=== PATIENT | male | born 1965 | race Caucasian/White ===

== ENCOUNTER 2019-04-09 13:24 | Emergency (ER) | payer OTHER ==
[2019-04-09 15:31] LABS: Amphetamine Screen,Urine Detected (NotDetected); Barbiturate Screen,Urine Not Detected (NotDetected); Benzodiazepines Screen,Urine Not Detected (NotDetected); Cocaine Screen,Urine Not Detected (NotDetected); Methadone Screen, Urine Not Detected (NotDetected); Opiate Screen,Urine Not Detected (NotDetected); Oxycodone Screen, Urine Not Detected (NotDetected); Phencyclidine Screen,Urine Not Detected (NotDetected); Tricyclic Antidepressant,Urine Not Detected (NotDetected); Urn Cannabinoid Scrn Not Detected (NotDetected)
--- NOTE | 2019-04-09 16:02 | ED ---
Psych HPI - General Chief Complaint: Psychiatric Symptoms Stated Complaint: Hallucinations, dental pain Time Seen by Provider: 04/09/19 13:52 Source: patient, RN notes reviewed, old records reviewed Mode of arrival: wheelchair - History of Present Illness Initial Comments: Patient is a 53 year old male, presents with parents for concern for hallucinations for 3 days after using methamphetamine. Patient reports he is a daily drinker, and binged over the weekend and used a large amount of meth. Denies recent sleep. PAtient denies suicidal or homircidal ideation. Patient reports that he also is here for dental infection, has poor dentition and does not go to dentist. Patient reportedly lives with parents. PAtient has no fevers or chills. - Related Data Previous Rx's Medication Instructions Recorded Penicillin V Potassium [Pen Vee K] 500 mg PO QID #40 tablet 04/09/19 Allergies Allergy/AdvReac Type Severity Reaction Status Date / Time No Known Allergies Allergy Verified 04/09/19 14:37 Review of Systems ROS Statement: Those systems with pertinent positive or pertinent negative responses have been documented in the HPI. ROS Other: All systems not noted in ROS Statement are negative. Past Medical History Past Medical History: Unable to Obtain History of Any Multi-Drug Resistant Organisms: None Reported Past Surgical History: Unable to Obtain Past Psychological History: No Psychological Hx Reported Smoking Status: Current every day smoker Past Alcohol Use History: Daily, Heavy Past Drug Use History: Marijuana, Methamphetamine General Exam - General Exam Comments Initial Comments: 53 year old male, resting in bed. No tremor, no distress. Limitations: no limitations General appearance: alert, in no apparent distress Head exam: Present: atraumatic, normocephalic, normal inspection Eye exam: Present: normal appearance, PERRL, EOMI. Absent: scleral icterus, conjunctival injection, periorbital swelling ENT exam: Present: normal exam, other (poor dentition, multiple dental caries. No abscess at this time. Inflammed gingiva. ). Absent: mucous membranes moist Neck exam: Present: normal inspection. Absent: tenderness, meningismus, lymphadenopathy Respiratory exam: Present: normal lung sounds bilaterally. Absent: respiratory distress, wheezes, rales, rhonchi, stridor Cardiovascular Exam: Present: regular rate Extremities exam: Present: normal inspection, full ROM, normal capillary refill. Absent: tenderness, pedal edema, joint swelling, calf tenderness Back exam: Present: normal inspection Neurological exam: Present: alert, oriented X3, CN II-XII intact Psychiatric exam: Present: normal mood, other (reports seeing people that are no t there after meth use this weekend. ). Absent: normal affect Skin exam: Present: warm, dry, intact, normal color. Absent: rash Course Vital Signs 04/09/19 04/09/19 04/09/19 13:25 15:00 16:54 Temperature 97.8 F 98.9 F Pulse Rate 105 H 73 81 Respiratory 18 18 20 Rate Blood Pressure 114/72 110/77 105/78 O2 Sat by Pulse 100 97 100 Oximetry Medical Decision Making - Medical Decision Making 53 year old male presents for meth induced hallucinations and wanting psych eval. Patient medically clear and evalauted by [facility] and [facility], and patient is not inpatient criteria. Symptoms are related to drug use. Patient also has poor dentition, will place on abx. Discussed return parameters. Given referrals for substance abuse. - Lab Data Lab Results 04/09/19 Range/Units 15:13 Urine Opiates Screen Not Detected (NotDetected) Ur Oxycodone Screen Not Detected (NotDetected) Urine Methadone Screen Not Detected (NotDetected) Ur Propoxyphene Screen Not Detected (NotDetected) Ur Barbiturates Screen Not Detected (NotDetected) U Tricyclic Antidepress Not Detected (NotDetected) Ur Phencyclidine Scrn Not Detected (NotDetected) Ur Amphetamines Screen Detected H (NotDetected) U Methamphetamines Scrn Detected H (NotDetected) U Benzodiazepines Scrn Not Detected (NotDetected) Urine Cocaine Screen Not Detected (NotDetected) U Marijuana (THC) Screen Not Detected (NotDetected) Disposition Clinical Impression: Dental infection, Methamphetamine abuse, Drug induced hallucinations Disposition: HOME SELF-CARE Condition: Good Instructions (If sedation given, give patient instructions): Dental Abscess (ED), Methamphetamine Abuse (ED) Additional Instructions: Please use medication as discussed. Please follow up with family doctor if symptoms have not improved over the next two days. Please return to the emergency room if your symptoms increase or worsen or for any other concerns. [facility] [id number] [place] [address] [phone] (existing clients only) For new clients: [phone] 1st consult: $50 (includes Xrays) Usually 30% less then private dentist for visits after. [employer] [facility] [employer] Have to pay $50 for Xrays anmd rest is covered. [phone] Prescriptions: Penicillin V Potassium [Pen Vee K] 500 mg PO QID #40 tablet Is patient prescribed a controlled substance at d/c from ED?: No Referrals: None,Stated [Primary Care Provider] - 1-2 days Natividad Frost MD [STAFF PHYSICIAN] - 1-2 days Time of Disposition: 16:30
[2019-04-09 17:41] VITALS: BP 105/78; PULSE 81; RESP 20; TEMP 98.9
== END 2019-04-09 16:54 | disposition home or self-care (01) ==
LOC: EC 13:24
DX: F15.151 Other stimulant abuse with stimulant-induced psychotic disorder with hallucinations (principal); K04.7 Periapical abscess without sinus; K02.9 Dental caries, unspecified; F17.200 Nicotine dependence, unspecified, uncomplicated
CPT/HCPCS: 80306; 82075; 99285

== ENCOUNTER 2020-01-09 06:57 | Emergency (ER) | payer OTHER ==
[2020-01-09 07:13] VITALS: BP 130/89; PULSE 83; TEMP 98.4
[2020-01-09] MEDS ORDERED: PROPARACAINE 0.5% OPHTH DROPS 15 ML BTL RIGHT EYE STA (07:23)
[2020-01-09] MEDS ORDERED: FLUORESCEIN STRIPS 1 MG STRIP BOTH EYES ONE (07:23)
--- NOTE | 2020-01-09 07:25 | ED ---
General Adult HPI - General Chief complaint: Eye Problems Stated complaint: FB in eye Time Seen by Provider: 01/09/20 07:18 Source: patient Mode of arrival: ambulatory Limitations: no limitations - History of Present Illness Initial comments: Dictation was produced using [employer] dictation software. please excuse any grammatical, word or spelling errors. This patient was cared for during a federal and state declared state of emergency secondary to Covid 19 Chief Complaint: 54-year-old male with foreign body sensation in the right eye History of Present Illness: 54-year-old male. Yesterday he was cutting metal, plastic and would. 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 States that after he got done working he felt a foreign body sensation in the right eye. Patient states he was wearing eye protection. Denies any vision changes. Denies any eye pain. She's had foreign body in the eyes in the past. The ROS documented in this emergency department record has been reviewed and confirmed by me. Those systems with pertinent positive or negative responses have been documented in the HPI. All other systems are other negative and/or noncontributory. PHYSICAL EXAM: General Impression: Alert and oriented x3, not in acute distress HEENT: Normocephalic atraumatic, extra-ocular movements intact, pupils equal and reactive to light bilaterally, mucous membranes moist. Ocular: Conjunctivitis to the right eye, excessive lacrimation to the right eye, small white speck foreign body embedded in the inner mucosa of the right upper eyelid just at midline. Cardiovascular: Heart regular rate and rhythm Chest: Able to complete full sentences, no retractions, no tachypnea Abdomen: abdomen soft, non-tender, non-distended, no organomegaly Musculoskeletal: Pulses present and equal in all extremities, no peripheral edema Motor: no focal deficits noted Neurological: CN II-XII grossly intact, no focal motor or sensory deficits noted Skin: Intact with no visualized rashes Psych: Normal affect and mood ED course: 54-year-old male with foreign body sensation in the right eye. Vital signs upon arrival are within acceptable limits. Patient was given proparacaine. Fluorescein testing was performed showing no corneal defects. Foreign body was removed using Q-tip and inverted eyelid. Foreign body. To be a small white plastic gurjit that patient was working with yesterday. Patient reports feeling much better. Patient given prescription for Ciprodex. He is told to use these for 2-3 days. He is given referral to on-call ophthalmology jareth. He is told to contact ophthalmology if he has any recurrence of symptoms. Discussed patient case Dr. Yuen who is aware patient - Related Data Previous Rx's Medication Instructions Recorded Penicillin V Potassium [Pen Vee K] 500 mg PO QID #40 tablet 04/09/19 Polymyxin B-Trimeth Sulf Ophth 1 drops RIGHT EYE Q4H 3 Days #1 01/09/20 [Polytrim Opthalmic] bottle Allergies Allergy/AdvReac Type Severity Reaction Status Date / Time No Known Allergies Allergy Verified 01/09/20 07:13 Review of Systems ROS Statement: Those systems with pertinent positive or pertinent negative responses have been documented in the HPI. ROS Other: All systems not noted in ROS Statement are negative. Past Medical History Past Medical History: No Reported History History of Any Multi-Drug Resistant Organisms: None Reported Past Surgical History: No Surgical Hx Reported Past Psychological History: No Psychological Hx Reported Smoking Status: Current every day smoker Past Alcohol Use History: Daily, Heavy Past Drug Use History: None Reported, Marijuana, Methamphetamine General Exam Limitations: no limitations Course Vital Signs 01/09/20 07:11 Temperature 98.4 F Pulse Rate 83 Respiratory 18 Rate Blood Pressure 130/89 O2 Sat by Pulse 95 Oximetry Disposition Clinical Impression: Eye foreign body Disposition: HOME SELF-CARE Condition: Good Instructions (If sedation given, give patient instructions): Eye Foreign Body (ED) Additional Instructions: Please contact , ophthalmology with any recurrence of symptoms. Eyedrops were sent to pharmacy for pickup. Please use for 3 days. Prescriptions: Polymyxin B-Trimeth Sulf Ophth [Polytrim Opthalmic] 1 drops RIGHT EYE Q4H 3 Days #1 bottle Is patient prescribed a controlled substance at d/c from ED?: No Referrals: Aleida Yuen MD [STAFF PHYSICIAN] - 1-2 days Time of Disposition: 07:43
[2020-01-09 07:52] VITALS: RESP 20
== END 2020-01-09 07:52 | disposition home or self-care (01) ==
LOC: EC 06:57
DX: T15.11XA Foreign body in conjunctival sac, right eye, initial encounter (principal); F17.200 Nicotine dependence, unspecified, uncomplicated; W45.8XXA Other foreign body or object entering through skin, initial encounter; Y92.69 Other specified industrial and construction area as the place of occurrence of the external cause; Y99.0 Civilian activity done for income or pay
CPT/HCPCS: 67938; 99283

== ENCOUNTER 2020-10-09 08:21 | Day surgery (SDC) | payer OTHER ==
[2020-10-08 11:34] VITALS: BMI 24.4
[~2020-10-09 08:21] MED LIST: LACTATED RINGERS 1,000 ML IV SCH
[2020-10-09 08:56] VITALS: TEMP 97.3
[2020-10-09] MEDS ORDERED: PROPOFOL 10 MG/ML 20 ML VIAL IV ONE (09:57)
--- NOTE | 2020-10-09 09:59 | P.GSHP ---
History of Present Illness H&P Date: 10/09/20 Chief Complaint: Screening colonoscopy Is a 55-year-old male presents today for screening colonoscopy. Patient denies any significant GI complaints. Past Medical History Past Medical History: GERD/Reflux, Hyperlipidemia, Osteoarthritis (OA), Thyroid Disorder History of Any Multi-Drug Resistant Organisms: None Reported Past Surgical History: No Surgical Hx Reported Additional Past Surgical History / Comment(s): Degloving injury left hand, repaired. Past Anesthesia/Blood Transfusion Reactions: No Reported Reaction Additional Past Anesthesia/Blood Transfusion Reaction / Comment(s): "I really, really don't like needles, I'm going to need something for anxiety." Past Psychological History: No Psychological Hx Reported Smoking Status: Current every day smoker Past Alcohol Use History: Daily Additional Past Alcohol Use History / Comment(s): Has been smoking since 18 yrs old. "A beer a day." Past Drug Use History: None Reported - Past Family History Mother Family Medical History: No Reported History Medications and Allergies Home Medications Medication Instructions Recorded Confirmed Type Cholecalciferol (Vitamin D3) 125 mcg PO DAILY 10/08/20 10/09/20 History [Vitamin D3 (5000 Iu)] Levothyroxine Sodium [Synthroid] 50 mcg PO DAILY 10/08/20 10/09/20 History Lovastatin [Mevacor] 40 mg PO HS 10/08/20 10/09/20 History Multivitamins, Thera [Multivitamin 1 tab PO DAILY 10/08/20 10/09/20 History (formulary)] Pantoprazole [Protonix] 40 mg PO DAILY 10/08/20 10/09/20 History Allergies Allergy/AdvReac Type Severity Reaction Status Date / Time No Known Allergies Allergy Verified 10/09/20 08:59 Surgical - Exam Vital Signs Temp Pulse Resp BP Pulse Ox 97.3 F L 67 16 131/87 97 10/09/20 08:54 10/09/20 08:54 10/09/20 08:54 10/09/20 08:54 10/09/20 08:54 - General well developed, well nourished, no distress - Eyes PERRL - ENT normal pinna - Neck no masses - Respiratory normal expansion - Cardiovascular Rhythm: regular - Abdomen Abdomen: soft, non tender Assessment and Plan Assessment: We'll perform screening colonoscopy
--- NOTE | 2020-10-09 10:16 | P.OP ---
Date of Procedure: 10/09/20 Preoperative Diagnosis: Screening colonoscopy Postoperative Diagnosis: Diverticulosis Procedure(s) Performed: Colonoscopy Anesthesia: MAC Surgeon: Marcos Kay Pathology: none sent Condition: stable Disposition: PACU Description of Procedure: The patient's placed on the endoscopy table in the lateral position. He received IV sedation. Digital rectal exam was performed which revealed no abnormalities. The flexible colonoscope was then placed patient anus passed throughout the entire colon. The ileocecal valve was visually. The cecum, ascending and transverse colon appeared normal. In the descending and sigmoid colon there was some mild diverticular changes. Scope was then brought back the rectum and this appeared normal. The scope was withdrawn for patient.
[2020-10-09 10:28] VITALS: BP 122/86; PULSE 86; RESP 16
== END 2020-10-09 10:42 | disposition home or self-care (01) ==
LOC: ORWHC2ENDO 08:21
PROVIDERS: ATTEND Surgery
DX: Z12.11 Encounter for screening for malignant neoplasm of colon (principal); K57.30 Diverticulosis of large intestine without perforation or abscess without bleeding; K21.9 Gastro-esophageal reflux disease without esophagitis; E78.5 Hyperlipidemia, unspecified; M19.90 Unspecified osteoarthritis, unspecified site; E07.9 Disorder of thyroid, unspecified; F17.210 Nicotine dependence, cigarettes, uncomplicated; Z97.2 Presence of dental prosthetic device (complete) (partial); Z98.890 Other specified postprocedural states; Z79.890 Hormone replacement therapy; Z79.899 Other long term (current) drug therapy
CPT/HCPCS: J2704; G0121; 45378

== ENCOUNTER 2021-10-04 18:55 | Emergency (ER) | payer OTHER ==
[2021-10-05 00:37] LABS: HCT 48.3 % (39.0-53.0); HGB 15.7 gm/dL (13.0-17.5); MCH 30.6 pg (25.0-35.0); MCHC 32.4 g/dL (31.0-37.0); MCV 94.3 fL (80.0-100.0); Mean Platelet Volume 6.9; Platelet Count 465 k/uL (150-450); RBC 5.12 m/uL (4.30-5.90); RDW 13.9 % (11.5-15.5); WBC 5.8 k/uL (3.8-10.6)
--- NOTE | 2021-10-05 00:43 | XR ---
EXAMINATION TYPE: XR chest 2V DATE OF EXAM: 10/05/2021 COMPARISON: NONE HISTORY: Cough TECHNIQUE: 2 views FINDINGS: Heart and mediastinum are normal. Lungs are clear. Diaphragm is normal. Bony thorax appears normal. IMPRESSION: Normal chest.
--- NOTE | 2021-10-05 00:46 | XR ---
EXAMINATION TYPE: XR KUB DATE OF EXAM: 10/05/2021 COMPARISON: NONE HISTORY: Pain TECHNIQUE: 2 view Upright FINDINGS: Bowel gas pattern is normal. There is no sign of intestinal obstruction or pneumoperitoneum . Fecal pattern is normal. There is no evidence of a mass. There are no pathologic calcifications ove r the kidneys. IMPRESSION: Nonacute abdomen.
[2021-10-05 00:50] LABS: Appearance,Urine Clear (Clear); Bilirubin,Urine Negative (Negative); Blood,Urine Negative (Negative); Color,Urine Yellow; Glucose,Urine (UA) Negative (Negative); Ketones,Urine Negative (Negative); Leukocyte Esterase,Urine Negative (Negative); Nitrite,Urine Negative (Negative); Protein,Urine Negative (Negative); Specific Gravity,Urine 1.017 (1.001-1.035); Urobilinogen,Urine <2.0 mg/dL (<2.0)
[2021-10-05 00:58] LABS: ALT 63 U/L (4-49); AST 43 U/L (17-59); African American GFR (CKD) >90 (>60 ml/min/1.73 sqM); Albumin 4.7 g/dL (3.5-5.0); Alkaline Phosphatase 100 U/L (38-126); Anion Gap 9 mmol/L; Blood Urea Nitrogen 15 mg/dL (9-20); Calcium 9.2 mg/dL (8.4-10.2); Carbon Dioxide 25 mmol/L (22-30); Chloride 104 mmol/L (98-107); Glucose 108 mg/dL (74-99); Lipase 88 U/L (23-300); Non-African American GFR(CKD) >90 (>60 ml/min/1.73 sqM); Potassium 4.8 mmol/L (3.5-5.1); Sodium 138 mmol/L (137-145); Total Bilirubin 0.4 mg/dL (0.2-1.3); Total Protein 8.2 g/dL (6.3-8.2)
--- NOTE | 2021-10-05 01:10 | ED ---
General Adult HPI - General Chief complaint: Abdominal Pain Stated complaint: Trouble urinating Time Seen by Provider: 10/04/21 23:25 Source: patient, RN notes reviewed Mode of arrival: ambulatory Limitations: no limitations - History of Present Illness Initial comments: 56-year-old male presents to the emergency department for evaluation of multiple complaints. Patient describes hesitancy with urination and a weak stream. States this has been an ongoing issue for nearly one year. Also complains of a swollen abdomen for the past 6 months. In addition, patient complains of a gagging cough that occurs when he smokes cigarettes. States he has been taking his medications as prescribed by his PCP. Denies fever, chills, headache, dizziness, chest pain, difficulty breathing, nausea, vomiting, diarrhea, constipation, dysuria, or hematuria. - Related Data Home Medications Medication Instructions Recorded Confirmed Cholecalciferol (Vitamin D3) 125 mcg PO DAILY 10/08/20 10/09/20 [Vitamin D3 (5000 Iu)] Levothyroxine Sodium [Synthroid] 50 mcg PO DAILY 10/08/20 10/09/20 Lovastatin [Mevacor] 40 mg PO HS 10/08/20 10/09/20 Multivitamins, Thera [Multivitamin 1 tab PO DAILY 10/08/20 10/09/20 (formulary)] Pantoprazole [Protonix] 40 mg PO DAILY 10/08/20 10/09/20 Allergies Allergy/AdvReac Type Severity Reaction Status Date / Time No Known Allergies Allergy Verified 10/04/21 19:05 Review of Systems ROS Statement: Those systems with pertinent positive or pertinent negative responses have been documented in the HPI. ROS Other: All systems not noted in ROS Statement are negative. Past Medical History Past Medical History: GERD/Reflux, Hyperlipidemia, Osteoarthritis (OA), Thyroid Disorder History of Any Multi-Drug Resistant Organisms: None Reported Past Surgical History: No Surgical Hx Reported Additional Past Surgical History / Comment(s): Degloving injury left hand, repaired. Past Anesthesia/Blood Transfusion Reactions: No Reported Reaction Additional Past Anesthesia/Blood Transfusion Reaction / Comment(s): "I really, really don't like needles, I'm going to need something for anxiety." Past Psychological History: No Psychological Hx Reported Smoking Status: Current every day smoker Past Alcohol Use History: Daily Past Drug Use History: None Reported - Past Family History Mother Family Medical History: No Reported History General Exam Limitations: no limitations (Well-developed, well-nourished male in no acute distress. Temperature 98.0, pulse 110, respirations 18, blood pressure 143/78, pulse ox 99% on room air.) General appearance: alert, in no apparent distress Neck exam: Present: normal inspection, full ROM. Absent: tenderness, meningismus, lymphadenopathy Respiratory exam: Present: normal lung sounds bilaterally. Absent: respiratory distress, wheezes, rales, rhonchi, stridor, chest wall tenderness, accessory muscle use Cardiovascular Exam: Present: regular rate, normal rhythm, normal heart sounds. Absent: systolic murmur, diastolic murmur, rubs, gallop, clicks GI/Abdominal exam: Present: soft, tenderness (mild lower abdomin/suprapubic tenderness upon palpation), guarding (guarding lower abdomen), normal bowel sounds. Absent: distended, rebound, rigid Back exam: Absent: CVA tenderness (R), CVA tenderness (L) Neurological exam: Present: alert, oriented X3, CN II-XII intact Psychiatric exam: Present: normal affect, normal mood Skin exam: Present: warm, dry, intact, normal color. Absent: rash Course Vital Signs 10/04/21 10/05/21 19:02 02:49 Temperature 98 F Pulse Rate 110 H 100 Respiratory 18 18 Rate Blood Pressure 143/78 119/80 O2 Sat by Pulse 99 97 Oximetry - Reevaluation(s) Reevaluation #1: 10/05/21 01:15 Upon reevaluation, patient reports a full sensation in his abdomen. States he is drinking water, but not putting out much urine. Bladder scan shows post-void residual of 344ml. Discussed dumas catheter; patient is anxious about this but is willing. 10/05/21 03:00 Patient is awaiting dumas catheter placement. Discussed follow up care. Will reevaluate after catheter is placed. Continues to tolerate oral intake without difficulty but reports dribbling urine output. 10/05/21 04:00 Dumas catheter placed with clear, yellow urine output. Volume output 250ml. Patient reports feeling improved. He will be discharged home to follow up with PCP for further evaluation and treatment. Medical Decision Making - Medical Decision Making 56-year-old male with a past medical history of GERD, osteoarthritis, thyroid disorder, and hyperlipidemia presents to the emergency department for evaluation of multiple vague complaints. Upon exam, patient is well-appearing and in no acute distress. Vital signs stable. Patient is able to move about freely. Reading oral intake without difficulty. He states his abdomen appears swollen and is mildly tender upon palpation in the suprapubic region. Patient states he a weak urine stream and has difficulty emptying his bladder. Also complained of gagging cough that occurs with smoking. Chest and KUB xrays were unremarkable. Laboratory studies were reviewed with no significant findings. Urinalysis is negative. Dumas catheter was placed with clear yellow urine output. Patient reports improvement and abdominal discomfort after catheter placement. He will be discharged home with a leg bag in place and instructed to follow up with his PCP or urology by the end of the week. Return parameters were discussed in detail. Patient verbalizes understanding and agrees with this plan. Attending: Yomaira. - Lab Data Result diagrams: 10/05/21 00:30 10/05/21 00:30 Lab Results 10/05/21 10/05/21 10/05/21 Range/Units 00:30 00:30 00:30 WBC 5.8 (3.8-10.6) k/uL RBC 5.12 (4.30-5.90) m/uL Hgb 15.7 (13.0-17.5) gm/dL Hct 48.3 (39.0-53.0) % MCV 94.3 (80.0-100.0) fL MCH 30.6 (25.0-35.0) pg MCHC 32.4 (31.0-37.0) g/dL RDW 13.9 (11.5-15.5) % Plt Count 465 H (150-450) k/uL MPV 6.9 Neutrophils % Not Reportable Neutrophils % (Manual) 38 % Lymphocytes % Not Reportable Lymphocytes % (Manual) 53 % Monocytes % Not Reportable Monocytes % (Manual) 8 % Eosinophils % Not Reportable Eosinophils % (Manual) 1 % Basophils % Not Reportable Neutrophils # Not Reportable Neutrophils # (Manual) 2.20 (1.3-7.7) k/uL Lymphocytes # Not Reportable Lymphocytes # (Manual) 3.07 (1.0-4.8) k/uL Monocytes # Not Reportable Monocytes # (Manual) 0.46 (0-1.0) k/uL Eosinophils # Not Reportable Eosinophils # (Manual) 0.06 (0-0.7) k/uL Basophils # Not Reportable Nucleated RBCs 0 (0-0) /100 WBC Manual Slide Review Performed Sodium 138 (137-145) mmol/L Potassium 4.8 (3.5-5.1) mmol/L Chloride 104 (98-107) mmol/L Carbon Dioxide 25 (22-30) mmol/L Anion Gap 9 mmol/L BUN 15 (9-20) mg/dL Creatinine 0.86 (0.66-1.25) mg/dL Est GFR (CKD-EPI)AfAm >90 (>60 ml/min/1.73 sqM) Est GFR (CKD-EPI)NonAf >90 (>60 ml/min/1.73 sqM) Glucose 108 H (74-99) mg/dL Calcium 9.2 (8.4-10.2) mg/dL Total Bilirubin 0.4 (0.2-1.3) mg/dL AST 43 (17-59) U/L ALT 63 H (4-49) U/L Alkaline Phosphatase 100 (38-126) U/L Total Protein 8.2 (6.3-8.2) g/dL Albumin 4.7 (3.5-5.0) g/dL Lipase 88 (23-300) U/L Urine Color Yellow Urine Appearance Clear (Clear) Urine pH 6.0 (5.0-8.0) Ur Specific [place] 1.017 (1.001-1.035) Urine Protein Negative (Negative) Urine Glucose (UA) Negative (Negative) Urine Ketones Negative (Negative) Urine Blood Negative (Negative) Urine Nitrite Negative (Negative) Urine Bilirubin Negative (Negative) Urine Urobilinogen <2.0 (<2.0) mg/dL Ur Leukocyte Esterase Negative (Negative) - Radiology Data Radiology results: report reviewed, image reviewed Two-view chest x-ray was obtained. Report was reviewed in its entirety. Impression per Dr. Drake is normal chest. KUB x-ray was obtained. Report was reviewed in its entirety. Impression per Dr. Drake is nonacute abdomen. Disposition Clinical Impression: Urinary retention Disposition: HOME SELF-CARE Condition: Stable Instructions (If sedation given, give patient instructions): Urinary Retention in Men (ED) Additional Instructions: Keep catheter clean. Use mild soap and water to gently cleanse catheter. Avoid vigorous activity or any activity that may pull or tug on catheter. You must not attempt to remove the catheter yourself; it can cause significant trauma. Follow up with your PCP or urology by the end of the week. Return to the emergency department with any new, worsening, or concerning symptoms. Is patient prescribed a controlled substance at d/c from ED?: No Referrals: Jay Jay Clark MD [Primary Care Provider] - 1-2 days Mark Miller MD [STAFF PHYSICIAN] - 1-2 days Time of Disposition: 04:29
[2021-10-05 01:33] LABS: Eosinophils # (M) 0.06 k/uL (0-0.7); Lymphocytes # (M) 3.07 k/uL (1.0-4.8); Monocytes # (M) 0.46 k/uL (0-1.0); Neutrophils % (M) 38 %; Nucleated Red Blood Cells 0 /100 WBC (0-0); Total Cells Counted 100
[2021-10-05] MEDS ORDERED: LIDOCAINE URO-JET JELLY 2% 5 ML KIT URETHRAL ONE (01:34)
[2021-10-05] MEDS ORDERED: ONDANSETRON 4 MG/2 ML VIAL IVP STA (01:34)
[2021-10-05 04:51] VITALS: BP 149/89; PULSE 88; RESP 20; TEMP 98.7
== END 2021-10-05 04:50 | disposition home or self-care (01) ==
LOC: EC 18:55
DX: R33.9 Retention of urine, unspecified (principal); K21.9 Gastro-esophageal reflux disease without esophagitis; E78.5 Hyperlipidemia, unspecified; M19.90 Unspecified osteoarthritis, unspecified site; E07.9 Disorder of thyroid, unspecified; F17.200 Nicotine dependence, unspecified, uncomplicated
CPT/HCPCS: 99284; 96374; 51702; 51798; 36415; 80053; 83690; 85025; 81003; 71046; 74018; J2405

== ENCOUNTER 2022-03-22 20:04 | Inpatient (IN) | payer MEDICAID, OTHER ==
[2022-03-22] MEDS ORDERED: LORazepam 2 MG/ML INJ IM PRN (22:59)
[2022-03-22] MEDS ORDERED: ZIPRASIDONE 20 MG VIAL IM PRN (22:59)
--- NOTE | 2022-03-23 00:02 | ED ---
Psych HPI - General Chief Complaint: Psychiatric Symptoms Stated Complaint: Petition Time Seen by Provider: 03/22/22 20:11 Source: patient, police Mode of arrival: ambulatory - History of Present Illness Initial Comments: This patient is a 56-year-old man brought by [employer] Trainer department personnel to have psychiatric evaluation. The patient reportedly has had multiple contacts with their department over the past few days. The patient reportedly complaining that drowns are conducting surveillance over him. He states that they are also using some sort of radiation was up to cause burning to his skin. The patient then reportedly had made threats against a neighbor. After the threat Crew Trainer department brought him here to have evaluation. MD Complaint: other -: days(s) Associated Psychiatric Symptoms: delusions Quality: getting worse Improves With: none Worsens With: none - Related Data Home Medications Medication Instructions Recorded Confirmed Levothyroxine Sodium [Synthroid] 50 mcg PO DAILY 10/08/20 03/22/22 Pantoprazole [Protonix] 40 mg PO DAILY 10/08/20 03/22/22 Albuterol Sulfate [Proair Hfa] 2 puff INHALATION RT-Q6H PRN 03/22/22 03/22/22 Ergocalciferol [Vitamin D2 (1250 1,250 mcg PO QMONTHLY 03/22/22 03/22/22 Mcg = [id number] Iu)] Sildenafil Citrate [Viagra] 100 mg PO DAILY PRN 03/22/22 03/22/22 Tamsulosin HCl [Flomax] 0.4 mg PO DAILY 03/22/22 03/22/22 Allergies Allergy/AdvReac Type Severity Reaction Status Date / Time No Known Allergies Allergy Verified 03/22/22 20:42 Review of Systems ROS Statement: Those systems with pertinent positive or pertinent negative responses have been documented in the HPI. ROS Other: All systems not noted in ROS Statement are negative. Constitutional: Denies: fever Respiratory: Denies: cough, dyspnea Cardiovascular: Denies: chest pain, palpitations Gastrointestinal: Denies: abdominal pain, vomiting, diarrhea Genitourinary: Denies: dysuria, hematuria Musculoskeletal: Denies: back pain Skin: Denies: rash Neurological: Denies: headache, weakness, numbness Psychiatric: Reports: homicidal thoughts, other (Delusions). Denies: depression, suicidal thoughts Past Medical History Past Medical History: GERD/Reflux, Hyperlipidemia, Hypertension, Osteoarthritis (OA), Thyroid Disorder History of Any Multi-Drug Resistant Organisms: None Reported Past Surgical History: No Surgical Hx Reported Additional Past Surgical History / Comment(s): Degloving injury left hand, repaired. Past Anesthesia/Blood Transfusion Reactions: No Reported Reaction Additional Past Anesthesia/Blood Transfusion Reaction / Comment(s): "I really, really don't like needles, I'm going to need something for anxiety." Past Psychological History: No Psychological Hx Reported Smoking Status: Current every day smoker Past Alcohol Use History: Daily Past Drug Use History: None Reported - Past Family History Mother Family Medical History: No Reported History General Exam General appearance: alert, in no apparent distress Head exam: Present: atraumatic, normocephalic Eye exam: Present: normal appearance. Absent: scleral icterus, conjunctival injection ENT exam: Present: normal oropharynx Neck exam: Present: normal inspection Respiratory exam: Present: normal lung sounds bilaterally. Absent: respiratory distress, wheezes, rales, rhonchi, stridor Cardiovascular Exam: Present: regular rate, normal rhythm, normal heart sounds. Absent: systolic murmur, diastolic murmur, rubs, gallop GI/Abdominal exam: Present: soft. Absent: tenderness, guarding, rebound Extremities exam: Present: normal inspection. Absent: pedal edema Neurological exam: Present: alert Psychiatric exam: Present: manic. Absent: agitated, flat affect, homicidal ideation, suicidal ideation Skin exam: Present: warm, dry, intact, normal color. Absent: rash Course Vital Signs 03/22/22 20:06 Temperature 98.3 F Pulse Rate 87 Respiratory 16 Rate Blood Pressure 115/81 O2 Sat by Pulse 99 Oximetry Medical Decision Making - Lab Data Lab Results 03/22/22 Range/Units 23:16 Coronavirus (PCR) Not Detected (Not Detectd) Disposition Clinical Impression: Acute psychosis Disposition: ADMITTED IP TO THIS HOSP Condition: Fair Is patient prescribed a controlled substance at d/c from ED?: No Referrals: Jay Jay Clark MD [Primary Care Provider] - 1-2 days
[2022-03-23] MEDS ORDERED: HALOPERIDOL LACTATE 5 MG/ML 1 ML VIAL IM PRN (00:13)
[2022-03-23] MEDS ORDERED: MAGNESIUM HYDROXIDE 2,400 MG/10 ML CUP PO PRN (00:13)
[2022-03-23] MEDS ORDERED: MAG HYDROX/AL HYDROX/SIMETH 30 ML CUP PO PRN (00:13)
[2022-03-23] MEDS ORDERED: LORazepam 2 MG/ML INJ IM PRN (00:15)
[2022-03-23] MEDS: LORazepam 1 MG TAB PO PRN (02:08)
--- NOTE | 2022-03-23 09:23 | P.HP ---
Psychiatric H&P - . H&P Date: 03/23/22 History & Physical: Allergies Allergy/AdvReac Type Severity Reaction Status Date / Time No Known Allergies Allergy Verified 03/23/22 02:58 Vital Signs Temp 97.9 F 03/23/22 01:56 Pulse 80 03/23/22 01:56 Resp 15 03/23/22 01:56 BP 105/69 03/23/22 01:56 Pulse Ox 97 03/23/22 01:56 FiO2 Intake & Output 03/22/22 03/23/22 03/23/22 18:59 06:59 18:59 Weight 69.1 kg Laboratory Last Values Coronavirus (PCR) Not Detected (Not Detectd) 03/22/22 23:16 03/23/22 09:00 History of present illness: Anam Tang is a 56 years old single white male admitted for the first time for a psychiatric evaluation since he was reporting to the draw furnace tender's department several times that he was seeing drones. He said he has been seeing those drones for the last 3-4 days. He said he sees the drones at night when he is awake and they are monitoring him. He is rather vague about the details of these drones. He said he had pissed off someone and took them off their porn channel and they are mad at him. But he said he does not know them and has never seen them. He denies any other issues. He said he sleeps well it's well and gets along well. He said he gets angry at times but this has not caused any problem for him including fights being arrested etc. He denies auditory hallucinations and other kind of delusional thinking. Previous psychiatric history/drug and alcohol abuse: He said he was never in a psychiatric hospital and is not taking any psychiatric medicine. However later on he said he has been taking Seroquel 100 mg at night to help him sleep well at night. He insists that he does not abuse any drugs or alcohol except to drink 1 or 2 beers a day at times. However later on he said he was doing all kinds 100 drugs in the past and was kicked out of school in 11th grade for doing drugs he had done cocaine mescaline pot and was a heavy drinker. His UDS and other lab works are pending. Previous medical history: He has hypothyroidism COPD GERD and BPH. He is not ALLERGIC to any medication. He said he had an accident at the age of 21 and apparently the dorsum of left hand was injured and appears quite reddish now with some mild deformity. Social history: He was raised well by his parents. As noted above he was kicked out of school in 11th grade for abusing several drugs. He did not get his GED. 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 He is single and was never . He does not have any children. He was not in the service. He said he does not have any roman catholic but believes in God. He was not in the service. He has health insurance. Family history: He denies any physical or psychiatric issues in the family. Mental status examination: This is a white ambulatory male with adequate hygiene. He is not very cooperative in providing good history. He insisted that he does not abuse any drugs in spite of reporting recent onset of visual hallucinations and some delusional thinking to the draw furnace tender's department and even mentioning it to me here. However he did say he is taking Seroquel to help him sleep from the street which is often done by people who abuse stimulants. His speech is spontaneous and goal-directed even though he is not providing good information. His mood from mildly irritable to cheerful at the end of the examination. Affect is appropriate to the thought content. He reports of visual hallucinations and paranoid thinking as described above. He denies suicidal and homicidal thoughts. He is well oriented (but initially he said today is 04/01/2022) with adequate memory and general fund of knowledge. 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 Hypothyroidism, COPD, GERD, BPH. Strengths: He is working, has insurance, place to live and supportive family. Weakness: Not providing good history, probable substance abuse either of stimulant or hallucinogenic type. Treatment plan: He will have physical examination. He will be continued on Seroquel 100 mg at bedtime for psychosis adjusted dose as necessary. He will also receive milieu therapy group therapy individual therapy and recreational therapy and occupational therapy. family preservation worker will gather more information. Discharge with outpatient treatment.
[2022-03-23] MEDS: NICOTINE 14MG/24HR PATCH TRANSDERM SCH (09:42)
[2022-03-23] MEDS ORDERED: ALBUTEROL INHALER 60 PUFF/8 GM INHALER (MHU) INHALATION PRN (12:24)
--- NOTE | 2022-03-23 14:17 | P.CONS ---
History of Present Illness - Reason for Consult Consult date: 03/23/22 - History of Present Illness This is a 56 year old male patient of Dr Clark who presents to the hospital for psychiatric evaluation brought in by the hat marker department. Patient has been reporting to the police that clowns are conducting surveilance over him, also that they are using radiation that causes him to burn his skin. The patient also reportedly made threats against a neighbor. He is brought in for evaluation of delusional thought processes. During examination patient is hostile. He reports seeing drones outside his window. Past medical history of GERD, hypertension, hyperlipidemia, arthritis, hypothyroidism, he is a daily smoker and also reports daily alcohol use. Patient states he would like a cigarette, he would like a beer. He also would like a joint. He is asking who has the keys to get out of the psych unit and states he will be getting discharged today. Denies chest pain, no shortness of breath. Tolerating diet. He does report chronic pain to his knee, shoulder, and hand. He is afebrile, heart rate 80s sinus rhythm, blood pressure 115/81, 99% room air. REVIEW OF SYSTEMS: CONSTITUTIONAL: No fever, no malaise, no fatigue. HEENT: No recent visual problems or hearing problems. Denied any sore throat. CARDIOVASCULAR: No chest pain, orthopnea, PND, no palpitations, no syncope. PULMONARY: No shortness of breath, no cough, no hemoptysis. GASTROINTESTINAL: No diarrhea, no nausea, no vomiting, no abdominal pain. NEUROLOGICAL: No headaches, no weakness, no numbness. HEMATOLOGICAL: Denies any bleeding or petechiae. GENITOURINARY: Denies any burning micturition, frequency, or urgency. MUSCULOSKELETAL/RHEUMATOLOGICAL: Denies any joint pain, swelling, or any muscle pain. ENDOCRINE: Denies any polyuria or polydipsia. The rest of the 14-point review of systems is negative. PHYSICAL EXAMINATION: GENERAL: The patient is alert and oriented x3, not in any acute distress. Well developed, well nourished. HEENT: Pupils are round and equally reacting to light. EOMI. No scleral icterus. No conjunctival pallor. Normocephalic, atraumatic. No pharyngeal erythema. No thyromegaly. CARDIOVASCULAR: S1 and S2 present. No murmurs, rubs, or gallops. PULMONARY: Chest is clear to auscultation, no wheezing or crackles. ABDOMEN: Soft, nontender, nondistended, normoactive bowel sounds. No palpable organomegaly. MUSCULOSKELETAL: No joint swelling or deformity. EXTREMITIES: No cyanosis, clubbing, or pedal edema. He does have deformity to his right hand. NEUROLOGICAL: Gross neurological examination did not reveal any focal deficits. SKIN: No rashes. Assessment plan Assessment Altered mental status/delusions pending psychiatric evaluation History of hypertension currently normotensive History of GERD hyperlipidemia Hypothyroidism Daily nicotine use Daily alcohol use GI Prophylaxis DVT Prophyalxis Early ambulation Full Code Plan Resume appropriate home medications Patient refusing nicotine patch at this time Check basic labs/TSH Check urine drug toxicology Thank you for this consultation The impression and plan of care has been dictated by Lucila Castillo Nurse Practitioner as directed. Dr. Natalie MD I have performed a history and physical examination and medical decision making of this patient, discussed the same with the dictator, and agree with the dictators assessment and plan as written, documented as a scribe. Based on total visit time, I have performed more than 50% of this visit. Past Medical History Past Medical History: GERD/Reflux, Hyperlipidemia, Hypertension, Osteoarthritis (OA), Thyroid Disorder History of Any Multi-Drug Resistant Organisms: None Reported Past Surgical History: No Surgical Hx Reported Additional Past Surgical History / Comment(s): Degloving injury left hand, repaired. Past Anesthesia/Blood Transfusion Reactions: No Reported Reaction Additional Past Anesthesia/Blood Transfusion Reaction / Comm: "I really, really don't like needles, I'm going to need something for anxiety." Past Psychological History: No Psychological Hx Reported Smoking Status: Current every day smoker Past Alcohol Use History: Daily Additional Past Alcohol Use History / Comment(s): Has been smoking since 18 yrs old. "A beer a day." Past Drug Use History: None Reported - Past Family History Mother Family Medical History: No Reported History Medications and Allergies Home Medications Medication Instructions Recorded Confirmed Type Levothyroxine Sodium [Synthroid] 50 mcg PO DAILY 10/08/20 03/23/22 History Pantoprazole [Protonix] 40 mg PO DAILY 10/08/20 03/23/22 History Albuterol Sulfate [Proair Hfa] 2 puff INHALATION RT-Q6H PRN 03/22/22 03/23/22 History Ergocalciferol [Vitamin D2 (1250 1,250 mcg PO QMONTHLY 03/22/22 03/23/22 History Mcg = 13927 Iu)] Sildenafil Citrate [Viagra] 100 mg PO DAILY PRN 03/22/22 03/23/22 History Tamsulosin HCl [Flomax] 0.4 mg PO DAILY 03/22/22 03/23/22 History Allergies Allergy/AdvReac Type Severity Reaction Status Date / Time No Known Allergies Allergy Verified 03/23/22 02:58 Physical Exam Vitals: Vital Signs Temp Pulse Pulse Resp BP BP Pulse Ox 03/23/22 01:56 97.9 F 80 15 105/69 97 03/22/22 20:06 98.3 F 87 16 115/81 99 Intake and Output 03/22/22 03/23/22 03/23/22 22:59 06:59 14:59 Other: Weight 81.647 kg 69.1 kg Assessment and Plan Time with Patient: Less than 30
[2022-03-23] MEDS ORDERED: QUEtiapine 100 MG TAB PO SCH (21:00)
[2022-03-23] MEDS ORDERED: QUEtiapine 400 MG TAB PO SCH (21:00)
[2022-03-23] MEDS: QUEtiapine 100 MG TAB PO SCH (22:34)
[2022-03-24] MEDS: LEVOTHYROXINE 50 MCG TAB PO SCH (07:07)
[2022-03-24] MEDS: TAMSULOSIN 0.4 MG CAP.ER.24H PO SCH (09:57)
[2022-03-24] MEDS: PANTOPRAZOLE 40 MG TABLET PO SCH (09:57)
[2022-03-24] MEDS: NICOTINE 14MG/24HR PATCH TRANSDERM SCH (09:57)
--- NOTE | 2022-03-24 11:33 | P.PN ---
Progress Note - Text Progress Note Date: 03/24/22 S&O: Patient was seen in rounds in his room. He was laying down with his whole body covered with a sheet. He said he slept the whole night and was not bothered by the drones. But he was quite agitated and hostile requiring when necessary medications last evening. Continues to say that he wants to go home. He was advised that he came here under a petition and needs to wait until he is seen by the employment law attorney so that he can deafer his commitment before we can discharge him. He agreed to do that. Again he was asking when he can go. This time it was explained to him that he would like him to be safe and sound when he goes home without being bothered by the drones and his persecutors. He seemed to agree with that. This is a right ambulatory male with adequate hygiene. He does not show any psychomotor agitation or retardation. His speech is spontaneous and goal- directed. His mood is euthymic to irritable and affect is increased in intensity. Continues to believe he is followed by the drones and his persecutors are after him. Denies suicidal and homicidal ideas. Sensorium is clear. A&P: His second court CERT was completed this morning. He'll continue Seroquel, supervision and therapies. Estimated length of stay 5-7 days.
[2022-03-24] MEDS: QUEtiapine 100 MG TAB PO SCH (19:47)
[2022-03-24] MEDS: ACETAMINOPHEN TAB 325 MG TAB PO PRN (19:47)
--- NOTE | 2022-03-25 03:42 | CONS ---
CONSULTATION CHIEF COMPLAINT: Depression and acute psychosis. HISTORY OF PRESENT ILLNESS: This gentleman has been a patient in the practice and was last seen in December. He was just establishing with us at that time. He has a history of COPD, hypertension, hypothyroidism, and hyperlipidemia. He apparently came to the emergency room with depression. At the present time, he is difficult to arouse and no further history can be obtained. When he was seen in December, he was on Flomax, vitamin D, lovastatin, pantoprazole, and thyroid. He also has a history of GERD and rheumatoid arthritis. 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 He has had surgery on the hip and on the hand in the past. He does smoke. PHYSICAL EXAMINATION: VITAL SIGNS: Blood pressure is 138/90 with a pulse of 82, respirations of 19. He is afebrile. GENERAL: He appeared to be lethargic and sleepy. HEAD, EARS, EYES, NOSE, MOUTH: Seemed to be normal. CHEST: Clear. CARDIAC: Sounds like sinus rhythm. ABDOMEN: Soft and nontender. EXTREMITIES: Normal. IMPRESSION: 1. Major depression with acute psychosis. 2. History of gastroesophageal reflux disease. 3. History of hypothyroidism. 4. History of hyperlipidemia. RECOMMENDATIONS: None. MMODL / IJN: [id number] /
[2022-03-25] MEDS: LEVOTHYROXINE 50 MCG TAB PO SCH (05:47)
[2022-03-25] MEDS: NICOTINE 14MG/24HR PATCH TRANSDERM SCH (09:08)
[2022-03-25] MEDS: PANTOPRAZOLE 40 MG TABLET PO SCH (09:09)
[2022-03-25] MEDS: TAMSULOSIN 0.4 MG CAP.ER.24H PO SCH (09:09)
[2022-03-25] MEDS: haloperidoL 5 MG TAB PO PRN ×2 (10:27→18:02)
[2022-03-25] MEDS: LORazepam 1 MG TAB PO PRN ×2 (10:27→18:02)
--- NOTE | 2022-03-25 10:32 | P.PN ---
Progress Note - Text Progress Note Date: 03/25/22 S&O: Patient was seen in his room. Today he got out of bed and then sat on it while talking. He said he wants to go home today several times. He was again counseled that he is under commitment and has to have a court hearing or has to sign a waiver before discharge can be consider. He continues to be quite angry and irritable. Counseling has not been effective. He said he did not see any drones last night either and had slept good. He does not attend groups or socialize with other people. This is a right ambulatory male who is irritable and gets angry easily. He is hyperactive and demanding. Speech is spontaneous and goal-directed and is preoccupied with his going home. Mood is angry and affect is increased in intensity. He denied seeing the drones and did not say that anybody is after him. He denies suicide and homicide thoughts. He is well oriented with adequate memory. A&P: Increase Seroquel to 200 mg at bedtime continue supervision and groups.
[2022-03-25] MEDS: QUEtiapine 200 MG TAB PO SCH (20:37)
[2022-03-26] MEDS: LEVOTHYROXINE 50 MCG TAB PO SCH (06:23)
[2022-03-26] MEDS: TAMSULOSIN 0.4 MG CAP.ER.24H PO SCH (11:53)
[2022-03-26] MEDS: NICOTINE 14MG/24HR PATCH TRANSDERM SCH (11:53)
[2022-03-26] MEDS: PANTOPRAZOLE 40 MG TABLET PO SCH (11:53)
[2022-03-26] MEDS: ACETAMINOPHEN TAB 325 MG TAB PO PRN ×2 (16:38→21:06)
--- NOTE | 2022-03-26 17:42 | P.PN ---
Progress Note - Text Progress Note Date: 03/26/22 Interval History: Patient was seen bedside. He was somnolent upon approach. He reports he is doing "okay ". He denies concerns with medication. He reports sleeping and eating well. Patient continues to be somewhat disorganized in thought process. He did not participate in any groups this morning. Mental Status Exam: General Appearance: Laying in bed, disheveled Behavior: Somnolent Speech: Decreased amount Mood/Affect: Mood is "okay"; affect mood congruent Suicidality/Homicidality: Patient denies having any suicidal or homicidal ideation intent or plan. Perceptions: Patient is denying any auditory or visual hallucinations today. Though content/process: Disorganized Memory and concentration: Poor concentration. Judgment and insight: Poor Assessment Substance-induced psychotic disorder Plan: - Involuntary status -Continue current meds as tolerated -Haldol and Ativan PRN for anxiety/agitation/aggression -Motivational interviewing -Patient was informed of the risks, benefits and side effects of the medication and patient verbally consented to taking the medications. -Internal Medicine consult to perform medical evaluation and physical. -NRT - nicotine patch -SW on board for discharge planning. Encourage patient to participate in groups to work on coping skills.
[2022-03-26] MEDS: haloperidoL 5 MG TAB PO PRN (19:16)
[2022-03-26] MEDS: LORazepam 1 MG TAB PO PRN (19:17)
[2022-03-26] MEDS: QUEtiapine 200 MG TAB PO SCH (21:06)
[2022-03-27] MEDS: LEVOTHYROXINE 50 MCG TAB PO SCH (06:41)
[2022-03-27] MEDS: NICOTINE 14MG/24HR PATCH TRANSDERM SCH (09:39)
[2022-03-27] MEDS: PANTOPRAZOLE 40 MG TABLET PO SCH (12:26)
[2022-03-27] MEDS: TAMSULOSIN 0.4 MG CAP.ER.24H PO SCH (12:26)
[2022-03-27 15:43] LABS: Appearance,Urine Clear (Clear); Bilirubin,Urine Negative (Negative); Blood,Urine Negative (Negative); Color,Urine Light Yellow; Glucose,Urine (UA) Negative (Negative); Ketones,Urine Negative (Negative); Leukocyte Esterase,Urine Negative (Negative); Nitrite,Urine Negative (Negative); Protein,Urine Negative (Negative); Specific Gravity,Urine 1.018 (1.001-1.035); Urobilinogen,Urine <2.0 mg/dL (<2.0)
[2022-03-27 16:09] LABS: Amphetamine Screen,Urine Detected (NotDetected); Barbiturate Screen,Urine Not Detected (NotDetected); Benzodiazepines Screen,Urine Detected (NotDetected); Cocaine Screen,Urine Not Detected (NotDetected); Methadone Screen, Urine Not Detected (NotDetected); Opiate Screen,Urine Not Detected (NotDetected); Oxycodone Screen, Urine Not Detected (NotDetected); Phencyclidine Screen,Urine Not Detected (NotDetected); Tricyclic Antidepressant,Urine Detected (NotDetected); Urn Cannabinoid Scrn Not Detected (NotDetected)
--- NOTE | 2022-03-27 17:51 | P.PN ---
Progress Note - Text Progress Note Date: 03/27/22 Interval History: Patient was seen bedside. He was awake but laying in bed. He reports he is d oing "okay ". He denies concerns with medication. He reports sleeping and eating well. Patient continues to be somewhat disorganized in thought process and irritable at being hospitalized. He did not participate in any groups and states that he likes to keep himself. Mental Status Exam: General Appearance: Laying in bed, disheveled Behavior: Somnolent Speech: Decreased amount Mood/Affect: Mood is "okay"; affect mood congruent Suicidality/Homicidality: Patient denies having any suicidal or homicidal ideation intent or plan. Perceptions: Patient is denying any auditory or visual hallucinations today. Though content/process: Disorganized Memory and concentration: Poor concentration. Judgment and insight: Poor Assessment Substance-induced psychotic disorder Plan: -Involuntary status -Continue current meds as tolerated -Haldol and Ativan PRN for anxiety/agitation/aggression -Motivational interviewing -Patient was informed of the risks, benefits and side effects of the medication and patient verbally consented to taking the medications. -Internal Medicine consult to perform medical evaluation and physical. -NRT - nicotine patch -SW on board for discharge planning. Encourage patient to participate in groups to work on coping skills.
[2022-03-27] MEDS: LORazepam 1 MG TAB PO PRN (19:31)
[2022-03-27] MEDS: QUEtiapine 200 MG TAB PO SCH (20:15)
[2022-03-28] MEDS: LORazepam 1 MG TAB PO PRN ×2 (01:43→15:28)
[2022-03-28 01:48] VITALS: RESP 16
[2022-03-28] MEDS: ACETAMINOPHEN TAB 325 MG TAB PO PRN (05:32)
[2022-03-28] MEDS: LEVOTHYROXINE 50 MCG TAB PO SCH (05:33)
[2022-03-28] MEDS: PANTOPRAZOLE 40 MG TABLET PO SCH (07:57)
[2022-03-28] MEDS: NICOTINE 14MG/24HR PATCH TRANSDERM SCH (09:01)
[2022-03-28] MEDS: TAMSULOSIN 0.4 MG CAP.ER.24H PO SCH (09:02)
--- NOTE | 2022-03-28 10:30 | P.PN ---
Progress Note - Text Progress Note Date: 03/28/22 Interval History: Patient was seen at the bedside today and was agreeable to speak to writer technical publications. Alina stearns continues to be fairly preoccupied with discharge today. He repeated "I want to go home" and states that he is doing "okay". He denied any complaints overnight. Patient did take an Ativan last night as a when necessary to sleep. He denies any concerns with his medications or side effects at this time. He states that he is eating well. He claims that he lives in an apartment beside his mother and father. He continues to be fairly impulsive and somewhat irritable during conversation. We spoke about his involuntary status and speaking with the assistant city attorney today and he states "I'll sign anything I don't care" however has fairly poor insight and judgment. Patient continues to be somewhat disorganized in thought process and irritable at being hospitalized. At this time he is denying any suicidal or homicidal ideations intent or plan. He is denying any auditory or visual hallucinations. Mental Status Exam: General Appearance: Laying in bed, tall, thin, appears to be stated age. Behavior: Awake, irritable at times and impulsive. Speech: Decreased amount Mood/Affect: Mood is "ok"; affect mood incongruent and irritable Suicidality/Homicidality: Patient denies having any suicidal or homicidal ideation intent or plan. Perceptions: Patient is denying any auditory or visual hallucinations today. Though content/process: Perseverating on discharge. Not endorsing any seeing any delusions or paranoia. Memory and concentration: Poor concentration. Alert and oriented 3. Judgment and insight: Poor Assessment Psychosis unspecified Plan: -Involuntary status. Patient will have his deferral today with his assistant city attorney -Increase Seroquel to 300 mg daily at bedtime for mood stabilization/psychosis. -Haldol and Ativan PRN for anxiety/agitation/aggression -Patient was informed of the risks, benefits and side effects of the medication and patient verbally consented to taking the medications. -Internal Medicine consult to perform medical evaluation and physical. -NRT - nicotine patch -SW on board for discharge planning. Encourage patient to participate in groups to work on coping skills. Likely discharge in 1-2 days if patient improves. Awaiting referral and court date.
[2022-03-28] MEDS ORDERED: QUEtiapine 100 MG TAB PO SCH (21:00)
[2022-03-28 23:19] LABS: Glucose,Whole Blood 99 mg/dL (70-110)
[2022-03-28 23:24] VITALS: TEMP 97.8
[2022-03-29] MEDS: LORazepam 1 MG TAB PO PRN (00:56)
[2022-03-29] MEDS: haloperidoL 5 MG TAB PO PRN (03:39)
[2022-03-29] MEDS: LEVOTHYROXINE 50 MCG TAB PO SCH (07:00)
[2022-03-29] MEDS: PANTOPRAZOLE 40 MG TABLET PO SCH (08:31)
[2022-03-29] MEDS: TAMSULOSIN 0.4 MG CAP.ER.24H PO SCH (08:31)
[2022-03-29] MEDS ORDERED: traZODone HCL 50 MG TAB PO PRN (10:35)
[2022-03-29] MEDS ORDERED: diphenhydrAMINE 25 MG CAP PO PRN (11:12)
--- NOTE | 2022-03-29 11:15 | P.PN ---
Progress Note - Text Progress Note Date: 03/29/22 Interval History: Patient was seen at the bedside today and was agreeable to speak to typewriter mechanic. P daryn appears to be more directable and less irritable during conversation. He states that he is doing "a bit better" today. He claims that he did not sleep well at all last night and was agitated and restless. He states that he felt "my legs and body were shaking" and was blaming it on the Seroquel. He states that he usually doesn't get reactions like From Seroquel. He was agreeable to try Requip at nighttime. He was less focused on discharge today. He appears to have mild improvement in his insight and judgment. Improvement in his frustration tolerance. Claims that his mood is doing better today and less anxious. At this time he is denying any suicidal or homicidal ideations intent or plan. He is denying any auditory or visual hallucinations. Mental Status Exam: General Appearance: Laying in bed, tall, thin, appears to be stated age. Behavior: Awake, less irritable today. More cooperative. Speech: Improved, fluent. Mood/Affect: Mood is "ok now"; affect mood incongruent and less irritable Suicidality/Homicidality: Patient denies having any suicidal or homicidal ideation intent or plan. Perceptions: Patient is denying any auditory or visual hallucinations today. Though content/process: Not endorsing any seeing any delusions or paranoia. Memory and concentration: Improving concentration. Alert and oriented 3. Judgment and insight: Improving mildly Assessment Psychosis unspecified Plan: -Involuntary status. Patient signed a deferral with his corporate associate attorney on 03/28. -Increase Seroquel to 400 mg daily at bedtime for mood stabilization/psychosis.added requip 0.25 mg qhs for restless leg sx. added benadryl 25 mg qhs prn for insomnia -Haldol and Ativan PRN for anxiety/agitation/aggression -Patient was informed of the risks, benefits and side effects of the medication and patient verbally consented to taking the medications. -Internal Medicine consult to perform medical evaluation and physical. -NRT - nicotine patch -SW on board for discharge planning. Encourage patient to participate in groups to work on coping skills. Patient signed deferral with his corporate associate attorney and agreeable to treatment. Likely discharge tomorrow if patient improves.
[2022-03-29] MEDS ORDERED: QUEtiapine 400 MG TAB PO SCH (21:00)
[2022-03-29 23:48] VITALS: BP 103/74; PULSE 85
[2022-03-30] MEDS: LEVOTHYROXINE 50 MCG TAB PO SCH (06:54)
[2022-03-30] MEDS: TAMSULOSIN 0.4 MG CAP.ER.24H PO SCH (08:30)
[2022-03-30] MEDS: PANTOPRAZOLE 40 MG TABLET PO SCH (08:30)
--- NOTE | 2022-03-30 10:20 | P.DS ---
Providers Date of admission: 03/23/22 00:01 Expected date of discharge: 03/30/22 Attending physician: Jb Navarro MD Consults: 03/23/22 00:13 Consult Physician Routine Consulting Provider: Jay Jay Clark Consult Reason/Comments: H&P and medical Do you want consulting provider notified?: Yes, Notify in am Primary care physician: Jay Jay Clark - Discharge Diagnosis(es) (1) Unspecified psychosis Current Visit: Yes Status: Acute Priority: High (2) Nicotine dependence Current Visit: Yes Status: Acute Priority: Low Hospital Course: Admission HPI: Admission note was completed by Dr Casanova "[Anam Tang is a 56 years old single white male admitted for the first time for a psychiatric evaluation since he was reporting to the tape editor's department several times that he was seeing drones. He said he has been seeing those drones for the last 3-4 days. He said he sees the drones at night when he is awake and they are monitoring him. He is rather vague about the details of these drones. He said he had pissed off someone and took them off their porn channel and they are mad at him. But he said he does not know them and has never seen them. He denies any other issues. He said he sleeps well it's well and gets along well. He said he gets angry at times but this has not caused any problem for him including fights being arrested etc. He denies auditory hallucinations and other kind of delusional thinking. He said he was never in a psychiatric hospital and is not taking any psychiatric medicine. However later on he said he has been taking Seroquel 100 mg at night to help him sleep well at night. He insists that he does not abuse any drugs or alcohol except to drink 1 or 2 beers a day at times. However later on he said he was doing all kinds 100 drugs in the past and was kicked out of school in 11th grade for doing drugs he had done cocaine mescaline pot and was a heavy drinker. 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 [Patient ended up signing a deferral with the senior attorney and agreeing to treatment.] [] Patient got along well with other patients on the unit and followed unit protocol. Patient was compliant with the medications and denied any side effects throughout hospital course. Patient was started on [seroquel 400 mg qhs for psychosis/insomnia, requip 0.25 mg qhs for restless leg sx]. Patient spoke of [his] stressors and engaged in therapy both group and individual. Patient was also seen by medical team for history and physical exam. []Throughout the course of the hospitalization patient gradually improved with regards to [mood, psychosis], sleep and [returned back to their baseline level of functioning]. On the day of discharge patient denied any suicidal or homicidal ideations intent or plan denied any auditory or visual hallucinations. Patient endorsed wanting to live for [his health and family and work.] The patient denied any access to guns or weapons. Patient denied any paranoia and did not endorse any delusions. Patient does [not] have a significant history of substance abuse [and] was counseled on abstaining from all substances including alcohol and marijuana. Patient was also counseled on the medications and need for regular compliance and was encouraged to follow-up with their outpatient appointment for mental health and also for primary care. [Prior to discharge a family meeting will be arranged by social contact worker to answer any questions and ensure safety upon discharge.] [] Mental status exam: General Appearance: Patient appears to be [thin,] stated age is alert, pleasant, and cooperative. Patient is in no acute distress and has improved hygiene and grooming Behavior: Patient is calmly seated without any agitated behavior. Speech: Patient's speech is fluent and nonpressured. Mood/Affect: Patient reports their mood is "[good]", affect is congruent and euthymic. Suicidality/Homicidality: Patient denies having any suicidal or homicidal ideation intent or plan. Perceptions: Patient denies any auditory or visual hallucinations. Though content/process: There is no evidence of any delusional thought content and thought process is linear and goal-directed. [more future oriented] Memory and concentration: AOX3, grossly intact for the purposes of this session. Can spell "WORLD" backwards correctly. Judgment and insight: [chronically poor, however has] improved with guarded prognosis Impression: Psychosis NOS [Nicotine dependence] Plan: -Continue with discharge today as patient has improved and stabilized psychiatrically and is not currently an imminent threat to [himself] and/or others. [Patient will remain at chronically elevated risk for harm to self and/or others due to his impulsivity.] -Continue medications: []Seroquel 400 mg qhs for psychosis/insomnia, Requip 0.25 mg qhs for restless leg sx. -Patient was counseled on the need for medication compliance and appropriate follow-up at mental health and also primary care for medical issues. Patient verbalized understanding and agreed. -Social work to [arrange for and conduct family meeting to ensure safety upon discharge and answer any questions/concerns.] Social work also to arrange for patients follow up appointments for psychiatric care along with follow up with primary care provider. -Patient counseled on abstaining from recreational drugs and marijuana and alcohol. Was informed/educated on the adverse effects on their physical and mental health. [Patient verbally agreed and understood]. -Patient was instructed to return to the hospital or seek immediate medical care if their psychiatric or medical symptoms do worsen or reoccur. Allergies Allergy/AdvReac Type Severity Reaction Status Date / Time No Known Allergies Allergy Verified 03/23/22 02:58 Laboratory Results POC Glucose (mg/dL) 99 mg/dL (70-110) 03/28/22 23:17 POC Glu Water Pump Servicer ID She Mcgovern 03/28/22 23:17 Urine Color Light Yellow 03/27/22 15:33 Urine Appearance Clear (Clear) 03/27/22 15:33 Urine pH 7.0 (5.0-8.0) 03/27/22 15:33 Ur Specific [place] 1.018 (1.001-1.035) 03/27/22 15:33 Urine Protein Negative (Negative) 03/27/22 15:33 Urine Glucose (UA) Negative (Negative) 03/27/22 15:33 Urine Ketones Negative (Negative) 03/27/22 15:33 Urine Blood Negative (Negative) 03/27/22 15:33 Urine Nitrite Negative (Negative) 03/27/22 15:33 Urine Bilirubin Negative (Negative) 03/27/22 15:33 Urine Urobilinogen <2.0 mg/dL (<2.0) 03/27/22 15:33 Ur Leukocyte Esterase Negative (Negative) 03/27/22 15:33 Urine Opiates Screen Not Detected (NotDetected) 03/27/22 15:33 Ur Oxycodone Screen Not Detected (NotDetected) 03/27/22 15:33 Urine Methadone Screen Not Detected (NotDetected) 03/27/22 15:33 Ur Propoxyphene Screen Not Detected (NotDetected) 03/27/22 15:33 Ur Barbiturates Screen Not Detected (NotDetected) 03/27/22 15:33 U Tricyclic Antidepress Detected (NotDetected) H 03/27/22 15:33 Ur Phencyclidine Scrn Not Detected (NotDetected) 03/27/22 15:33 Ur Amphetamines Screen Detected (NotDetected) H 03/27/22 15:33 U Methamphetamines Scrn Detected (NotDetected) H 03/27/22 15:33 U Benzodiazepines Scrn Detected (NotDetected) H 03/27/22 15:33 Urine Cocaine Screen Not Detected (NotDetected) 03/27/22 15:33 U Marijuana (THC) Screen Not Detected (NotDetected) 03/27/22 15:33 Coronavirus (PCR) Not Detected (Not Detectd) 03/22/22 23:16 Vital Signs Temp 97.8 F 03/28/22 23:14 Pulse 85 03/29/22 23:47 Resp 16 03/28/22 23:14 BP 103/74 03/29/22 23:47 Pulse Ox 96 03/28/22 23:14 FiO2 Patient Condition at Discharge: Stable Plan - Discharge Summary Discharge Rx Participant: No New Discharge Prescriptions: New QUEtiapine [SEROquel] 400 mg PO HS 30 Days tab rOPINIRole HCL [Requip] 0.25 mg PO HS 30 Days tab Continue Pantoprazole [Protonix] 40 mg PO DAILY Tamsulosin HCl [Flomax] 0.4 mg PO DAILY Sildenafil Citrate [Viagra] 100 mg PO DAILY PRN PRN Reason: E.D. Albuterol Sulfate [Proair Hfa] 2 puff INHALATION RT-Q6H PRN PRN Reason: Shortness Of Breath Levothyroxine Sodium [Synthroid] 50 mcg PO DAILY Ergocalciferol [Vitamin D2 (1250 Mcg = 42764 Iu)] 1,250 mcg PO QMONTHLY Discharge Medication List Levothyroxine Sodium [Synthroid] 50 mcg PO DAILY 10/08/20 [History] Pantoprazole [Protonix] 40 mg PO DAILY 10/08/20 [History] Albuterol Sulfate [Proair Hfa] 2 puff INHALATION RT-Q6H PRN 03/22/22 [History] Ergocalciferol [Vitamin D2 (1250 Mcg = 14579 Iu)] 1,250 mcg PO QMONTHLY 03/22/22 [History] Sildenafil Citrate [Viagra] 100 mg PO DAILY PRN 03/22/22 [History] Tamsulosin HCl [Flomax] 0.4 mg PO DAILY 03/22/22 [History] QUEtiapine [SEROquel] 400 mg PO HS 30 Days tab 03/30/22 [Rx] rOPINIRole HCL [Requip] 0.25 mg PO HS 30 Days tab 03/30/22 [Rx] Follow up Appointment(s)/Referral(s): [facility] [Outside] - 04/05/22 11:00 am (with silo worker) Jay Jay Clark MD [Primary Care Provider] - 1-2 days Patient Instructions/Handouts: How to Stop Smoking (DC), Psychotic Disorder (DC) Activity/Diet/Wound Care/Special Instructions: Avoid the use of street drugs and alcohol. Take all prescriptions as prescribed. When you are in need of refills on your medications, please contact your medical provider and/or outpatient psychiatrist to have this done. Please go to scheduled outpatient appointment for aftercare treatment. If symptoms return or become worse, call the crisis line at and/or go to the nearest emergency room for evaluation. Discharge Disposition: HOME SELF-CARE
== END 2022-03-30 11:26 | disposition home or self-care (01) | DRG 885 ==
LOC: EC 20:04 → 3MHU 03-23 00:01
PROVIDERS: ADMIT Psychiatry & Neurology Psychiatry; ATTEND Psychiatry & Neurology Psychiatry
DX: F29 Unspecified psychosis not due to a substance or known physiological condition (principal); E03.9 Hypothyroidism, unspecified; E78.5 Hyperlipidemia, unspecified; F17.210 Nicotine dependence, cigarettes, uncomplicated; G25.81 Restless legs syndrome; G47.00 Insomnia, unspecified; G89.29 Other chronic pain; M21.832 Other specified acquired deformities of left forearm; I10 Essential (primary) hypertension; J44.9 Chronic obstructive pulmonary disease, unspecified; K21.9 Gastro-esophageal reflux disease without esophagitis; M06.9 Rheumatoid arthritis, unspecified; N40.0 Benign prostatic hyperplasia without lower urinary tract symptoms; Z20.822 Contact with and (suspected) exposure to COVID-19; Z79.890 Hormone replacement therapy; Z79.899 Other long term (current) drug therapy; Z71.51 Drug abuse counseling and surveillance of drug abuser; Z71.89 Other specified counseling; Z28.21 Immunization not carried out because of patient refusal
CPT/HCPCS: 80306; 81003; 82075; 87635; 96372; 99285

== ENCOUNTER 2022-06-04 18:42 | Inpatient (IN) | payer OTHER ==
[2022-06-04 19:16] LABS: Amphetamine Screen,Urine Not Detected (NotDetected); Barbiturate Screen,Urine Not Detected (NotDetected); Benzodiazepines Screen,Urine Not Detected (NotDetected); Cocaine Screen,Urine Not Detected (NotDetected); Methadone Screen, Urine Not Detected (NotDetected); Opiate Screen,Urine Not Detected (NotDetected); Oxycodone Screen, Urine Not Detected (NotDetected); Phencyclidine Screen,Urine Not Detected (NotDetected); Tricyclic Antidepressant,Urine Not Detected (NotDetected); Urn Cannabinoid Scrn Not Detected (NotDetected)
--- NOTE | 2022-06-04 20:16 | ED ---
General Adult HPI - General Chief complaint: Psychiatric Symptoms Stated complaint: EPS eval Time Seen by Provider: 06/04/22 20:02 Source: patient, RN notes reviewed Mode of arrival: ambulatory Limitations: no limitations - History of Present Illness Initial comments: 56-year-old male presents to the emergency department accompanied by his mother for evaluation of acute psychosis. Mother states the patient called her this evening and asked for her help explaining that he was being chased by drones. Mother states the patient has had similar episodes in the past requiring inpatient hospitalization. States he does not take any medicines and is not seeing [facility]. Mother explains that they did have a family member last night and is concerned that this triggered these paranoid thoughts. Patient denies any thoughts of causing harm to himself or anyone else. No medical complaints at this time. - Related Data Home Medications Medication Instructions Recorded Confirmed Levothyroxine Sodium [Synthroid] 50 mcg PO DAILY 10/08/20 06/05/22 Pantoprazole [Protonix] 40 mg PO DAILY 10/08/20 06/05/22 Albuterol Sulfate [Proair Hfa] 2 puff INHALATION RT-Q6H PRN 03/22/22 06/05/22 Ergocalciferol [Vitamin D2 (1250 1,250 mcg PO Q30D 03/22/22 06/05/22 Mcg = 18697 Iu)] Tamsulosin HCl [Flomax] 0.4 mg PO DAILY 03/22/22 06/05/22 Lovastatin [Mevacor] 20 mg PO DAILY 06/05/22 06/05/22 tadalafiL 20 mg PO Q48H PRN 06/05/22 06/05/22 Allergies Allergy/AdvReac Type Severity Reaction Status Date / Time No Known Allergies Allergy Verified 06/05/22 12:24 Review of Systems ROS Statement: Those systems with pertinent positive or pertinent negative responses have been documented in the HPI. ROS Other: All systems not noted in ROS Statement are negative. Past Medical History Past Medical History: GERD/Reflux, Hyperlipidemia, Hypertension, Osteoarthritis (OA), Thyroid Disorder History of Any Multi-Drug Resistant Organisms: None Reported Past Surgical History: No Surgical Hx Reported Additional Past Surgical History / Comment(s): Degloving injury left hand, repaired. Past Anesthesia/Blood Transfusion Reactions: No Reported Reaction Additional Past Anesthesia/Blood Transfusion Reaction / Comment(s): "I really, really don't like needles, I'm going to need something for anxiety." Past Psychological History: No Psychological Hx Reported Smoking Status: Current every day smoker - Past Family History Mother Family Medical History: No Reported History General Exam Limitations: no limitations General appearance: alert, in no apparent distress Head exam: Present: atraumatic, normocephalic, normal inspection Respiratory exam: Present: normal lung sounds bilaterally. Absent: respiratory distress, wheezes, rales, rhonchi, stridor Cardiovascular Exam: Present: regular rate, normal rhythm, normal heart sounds. Absent: systolic murmur, diastolic murmur, rubs, gallop, clicks GI/Abdominal exam: Present: soft, normal bowel sounds. Absent: distended, tende rness, guarding, rebound, rigid Extremities exam: Present: other (left hand appears red and swollen compared with right; this is baseline from an old injury requiring reconstructive surgery.) Neurological exam: Present: alert, oriented X3, normal gait Psychiatric exam: Present: anxious Expanded Focused psych exam: Present: paranoid, perseverating, restlessness Skin exam: Present: warm, dry, intact Course Vital Signs 06/04/22 18:48 Temperature 98.1 F Pulse Rate 102 H Respiratory 18 Rate Blood Pressure 129/85 O2 Sat by Pulse 97 Oximetry - Reevaluation(s) Reevaluation #1: 06/05/22 00:01 Patient becoming anxious and irritable, asking to leave. He is still complaining of encounters with "drones." Denies thoughts of causing harm to himself or anyone else. Ativan ordered. 06/05/22 03:45 Patient has been evaluated by EPS. Psychiatrist will see patient in the morning. This patient's care is assumed by my attending, Dr. Burnette. Medical Decision Making - Medical Decision Making This is a 56-year-old male with a past medical history of polysubstance abuse and inpatient psychiatric hospitalization who presents to the emergency department accompanied by his mother for mental health evaluation. Upon exam, patient is insistent that he is being tracked by a drone and is agitated that law enforcement is not taking him seriously. His physical exam findings are unremarkable. He is neurologically intact and able to follow commands. He denies any suicidal ideations or thoughts of causing harm to anyone else. Mother provides background information that there was a in the family last night. Patient was given Ativan with some improvement. Urine drug screen was negative. He is evaluated by EPS for possible hospital admission. This decision is pending and his care is signed out to my attending, Dr. Burnette. - Lab Data Result diagrams: 06/04/22 20:49 06/04/22 20:49 Lab Results 06/04/22 06/04/22 06/04/22 Range/Units 19:01 19:01 20:49 WBC 7.1 (3.8-10.6) k/uL RBC 4.47 (4.30-5.90) m/uL Hgb 14.0 (13.0-17.5) gm/dL Hct 41.9 (39.0-53.0) % MCV 93.7 (80.0-100.0) fL MCH 31.3 (25.0-35.0) pg MCHC 33.4 (31.0-37.0) g/dL RDW 13.4 (11.5-15.5) % Plt Count 387 (150-450) k/uL MPV 7.3 Neutrophils % 54 % Lymphocytes % 29 % Monocytes % 10 % Eosinophils % 4 % Basophils % 1 % Neutrophils # 3.8 (1.3-7.7) k/uL Lymphocytes # 2.1 (1.0-4.8) k/uL Monocytes # 0.7 (0-1.0) k/uL Eosinophils # 0.3 (0-0.7) k/uL Basophils # 0.1 (0-0.2) k/uL Sodium (137-145) mmol/L Potassium (3.5-5.1) mmol/L Chloride (98-107) mmol/L Carbon Dioxide (22-30) mmol/L Anion Gap mmol/L BUN (9-20) mg/dL Creatinine (0.66-1.25) mg/dL Est GFR (CKD-EPI)AfAm (>60 ml/min/1.73 sqM) Est GFR (CKD-EPI)NonAf (>60 ml/min/1.73 sqM) Glucose (74-99) mg/dL Calcium (8.4-10.2) mg/dL Urine Color Colorless Urine Appearance Clear (Clear) Urine pH 6.0 (5.0-8.0) Ur Specific [place] 1.006 (1.001-1.035) Urine Protein Negative (Negative) Urine Glucose (UA) Negative (Negative) Urine Ketones Negative (Negative) Urine Blood Negative (Negative) Urine Nitrite Negative (Negative) Urine Bilirubin Negative (Negative) Urine Urobilinogen <2.0 (<2.0) mg/dL Ur Leukocyte Esterase Negative (Negative) Urine Opiates Screen Not Detected (NotDetected) Ur Oxycodone Screen Not Detected (NotDetected) Urine Methadone Screen Not Detected (NotDetected) Ur Propoxyphene Screen Not Detected (NotDetected) Ur Barbiturates Screen Not Detected (NotDetected) U Tricyclic Antidepress Not Detected (NotDetected) Ur Phencyclidine Scrn Not Detected (NotDetected) Ur Amphetamines Screen Not Detected (NotDetected) U Methamphetamines Scrn Not Detected (NotDetected) U Benzodiazepines Scrn Not Detected (NotDetected) Urine Cocaine Screen Not Detected (NotDetected) U Marijuana (THC) Screen Not Detected (NotDetected) Coronavirus (PCR) (Not Detectd) 06/04/22 06/05/22 Range/Units 20:49 10:37 WBC (3.8-10.6) k/uL RBC (4.30-5.90) m/uL Hgb (13.0-17.5) gm/dL Hct (39.0-53.0) % MCV (80.0-100.0) fL MCH (25.0-35.0) pg MCHC (31.0-37.0) g/dL RDW (11.5-15.5) % Plt Count (150-450) k/uL MPV Neutrophils % % Lymphocytes % % Monocytes % % Eosinophils % % Basophils % % Neutrophils # (1.3-7.7) k/uL Lymphocytes # (1.0-4.8) k/uL Monocytes # (0-1.0) k/uL Eosinophils # (0-0.7) k/uL Basophils # (0-0.2) k/uL Sodium 139 (137-145) mmol/L Potassium 4.4 (3.5-5.1) mmol/L Chloride 109 H (98-107) mmol/L Carbon Dioxide 25 (22-30) mmol/L Anion Gap 5 mmol/L BUN 14 (9-20) mg/dL Creatinine 0.76 (0.66-1.25) mg/dL Est GFR (CKD-EPI)AfAm >90 (>60 ml/min/1.73 sqM) Est GFR (CKD-EPI)NonAf >90 (>60 ml/min/1.73 sqM) Glucose 92 (74-99) mg/dL Calcium 9.1 (8.4-10.2) mg/dL Urine Color Urine Appearance (Clear) Urine pH (5.0-8.0) Ur Specific [place] (1.001-1.035) Urine Protein (Negative) Urine Glucose (UA) (Negative) Urine Ketones (Negative) Urine Blood (Negative) Urine Nitrite (Negative) Urine Bilirubin (Negative) Urine Urobilinogen (<2.0) mg/dL Ur Leukocyte Esterase (Negative) Urine Opiates Screen (NotDetected) Ur Oxycodone Screen (NotDetected) Urine Methadone Screen (NotDetected) Ur Propoxyphene Screen (NotDetected) Ur Barbiturates Screen (NotDetected) U Tricyclic Antidepress (NotDetected) Ur Phencyclidine Scrn (NotDetected) Ur Amphetamines Screen (NotDetected) U Methamphetamines Scrn (NotDetected) U Benzodiazepines Scrn (NotDetected) Urine Cocaine Screen (NotDetected) U Marijuana (THC) Screen (NotDetected) Coronavirus (PCR) Not Detected (Not Detectd) Disposition Clinical Impression: Unspecified psychosis, Anxiety Disposition: TRANSFER TO PSYCH HOSP/UNIT Condition: Serious
[2022-06-04 21:03] LABS: Basophils # (A) 0.1 k/uL (0-0.2); Basophils % (A) 1 %; Eosinophils # (A) 0.3 k/uL (0-0.7); Eosinophils % (A) 4 %; HCT 41.9 % (39.0-53.0); Lymphocytes # (A) 2.1 k/uL (1.0-4.8); Lymphocytes % (A) 29 %; MCH 31.3 pg (25.0-35.0); MCHC 33.4 g/dL (31.0-37.0); MCV 93.7 fL (80.0-100.0); Mean Platelet Volume 7.3; Monocytes # (A) 0.7 k/uL (0-1.0); Monocytes % (A) 10 %; Neutrophils # (A) 3.8 k/uL (1.3-7.7); Neutrophils % (A) 54 %; Platelet Count 387 k/uL (150-450); RBC 4.47 m/uL (4.30-5.90); RDW 13.4 % (11.5-15.5); WBC 7.1 k/uL (3.8-10.6)
[2022-06-04 21:19] LABS: Appearance,Urine Clear (Clear); Bilirubin,Urine Negative (Negative); Blood,Urine Negative (Negative); Color,Urine Colorless; Glucose,Urine (UA) Negative (Negative); Ketones,Urine Negative (Negative); Leukocyte Esterase,Urine Negative (Negative); Nitrite,Urine Negative (Negative); Protein,Urine Negative (Negative); Specific Gravity,Urine 1.006 (1.001-1.035); Urobilinogen,Urine <2.0 mg/dL (<2.0)
[2022-06-04 21:49] LABS: African American GFR (CKD) >90 (>60 ml/min/1.73 sqM); Anion Gap 5 mmol/L; Blood Urea Nitrogen 14 mg/dL (9-20); Calcium 9.1 mg/dL (8.4-10.2); Carbon Dioxide 25 mmol/L (22-30); Chloride 109 mmol/L (98-107); Glucose 92 mg/dL (74-99); Non-African American GFR(CKD) >90 (>60 ml/min/1.73 sqM); Potassium 4.4 mmol/L (3.5-5.1); Sodium 139 mmol/L (137-145)
[2022-06-05] MEDS ORDERED: LORazepam 2 MG/ML INJ IV STA (00:01)
[2022-06-05] MEDS ORDERED: LORazepam 1 MG TAB PO STA (00:04)
[2022-06-05] MEDS ORDERED: LORazepam 1 MG TAB PO ONE (00:30)
[2022-06-05] MEDS ORDERED: MAG HYDROX/AL HYDROX/SIMETH 355 ML BOTTLE PO PRN (11:47)
[2022-06-05] MEDS ORDERED: HALOPERIDOL LACTATE 5 MG/ML 1 ML VIAL IM PRN (11:47)
[2022-06-05] MEDS ORDERED: MAGNESIUM HYDROXIDE 2,400 MG/10 ML CUP PO PRN (11:47)
[2022-06-05] MEDS ORDERED: LORazepam 2 MG/ML INJ IM PRN (11:52)
[2022-06-05] MEDS ORDERED: ALBUTEROL INHALER 60 PUFF/8 GM INHALER (MHU) INHALATION PRN (11:53)
[2022-06-05] MEDS ORDERED: QUEtiapine 200 MG TAB PO STA (13:28)
[2022-06-05] MEDS: LORazepam 1 MG TAB PO PRN (16:44)
[2022-06-05] MEDS: haloperidoL 5 MG TAB PO PRN (16:44)
[2022-06-05] MEDS ORDERED: LORazepam 2 MG/ML INJ IM STA (17:09)
--- NOTE | 2022-06-05 17:51 | P.HP ---
Psychiatric H&P - . H&P Date: 06/05/22 History & Physical: Allergies Allergy/AdvReac Type Severity Reaction Status Date / Time No Known Allergies Allergy Verified 06/05/22 12:24 Vital Signs Temp 97.5 F L 06/05/22 14:40 Pulse 96 06/05/22 14:40 Resp 18 06/05/22 14:40 BP 114/72 06/05/22 14:40 Pulse Ox 95 06/05/22 14:40 FiO2 Intake & Output 06/04/22 06/05/22 06/05/22 18:59 06:59 18:59 Weight 79.379 kg 75 kg Laboratory Last Values WBC 7.1 k/uL (3.8-10.6) 06/04/22 20:49 RBC 4.47 m/uL (4.30-5.90) 06/04/22 20:49 Hgb 14.0 gm/dL (13.0-17.5) 06/04/22 20:49 Hct 41.9 % (39.0-53.0) 06/04/22 20:49 MCV 93.7 fL (80.0-100.0) 06/04/22 20:49 MCH 31.3 pg (25.0-35.0) 06/04/22 20:49 MCHC 33.4 g/dL (31.0-37.0) 06/04/22 20:49 RDW 13.4 % (11.5-15.5) 06/04/22 20:49 Plt Count 387 k/uL (150-450) 06/04/22 20:49 MPV 7.3 06/04/22 20:49 Neutrophils % 54 % 06/04/22 20:49 Lymphocytes % 29 % 06/04/22 20:49 Monocytes % 10 % 06/04/22 20:49 Eosinophils % 4 % 06/04/22 20:49 Basophils % 1 % 06/04/22 20:49 Neutrophils # 3.8 k/uL (1.3-7.7) 06/04/22 20:49 Lymphocytes # 2.1 k/uL (1.0-4.8) 06/04/22 20:49 Monocytes # 0.7 k/uL (0-1.0) 06/04/22 20:49 Eosinophils # 0.3 k/uL (0-0.7) 06/04/22 20:49 Basophils # 0.1 k/uL (0-0.2) 06/04/22 20:49 Sodium 139 mmol/L (137-145) 06/04/22 20:49 Potassium 4.4 mmol/L (3.5-5.1) 06/04/22 20:49 Chloride 109 mmol/L (98-107) H 06/04/22 20:49 Carbon Dioxide 25 mmol/L (22-30) 06/04/22 20:49 Anion Gap 5 mmol/L 06/04/22 20:49 BUN 14 mg/dL (9-20) 06/04/22 20:49 Creatinine 0.76 mg/dL (0.66-1.25) 06/04/22 20:49 Est GFR (CKD-EPI)AfAm >90 (>60 ml/min/1.73 sqM) 06/04/22 20:49 Est GFR (CKD-EPI)NonAf >90 (>60 ml/min/1.73 sqM) 06/04/22 20:49 Glucose 92 mg/dL (74-99) 06/04/22 20:49 Calcium 9.1 mg/dL (8.4-10.2) 06/04/22 20:49 Urine Color Colorless 06/04/22 19:01 Urine Appearance Clear (Clear) 06/04/22 19:01 Urine pH 6.0 (5.0-8.0) 06/04/22 19:01 Ur Specific [place] 1.006 (1.001-1.035) 06/04/22 19:01 Urine Protein Negative (Negative) 06/04/22 19:01 Urine Glucose (UA) Negative (Negative) 06/04/22 19:01 Urine Ketones Negative (Negative) 06/04/22 19: Urine Blood Negative (Negative) 06/04/22 19: Urine Nitrite Negative (Negative) 06/04/22 19: Urine Bilirubin Negative (Negative) 06/04/22 19:01 Urine Urobilinogen <2.0 mg/dL (<2.0) 06/04/22 19:01 Ur Leukocyte Esterase Negative (Negative) 06/04/22 19:01 Urine Opiates Screen Not Detected (NotDetected) 06/04/22 19:01 Ur Oxycodone Screen Not Detected (NotDetected) 06/04/22 19:01 Urine Methadone Screen Not Detected (NotDetected) 06/04/22 19:01 Ur Propoxyphene Screen Not Detected (NotDetected) 06/04/22 19:01 Ur Barbiturates Screen Not Detected (NotDetected) 06/04/22 19:01 U Tricyclic Antidepress Not Detected (NotDetected) 06/04/22 19:01 Ur Phencyclidine Scrn Not Detected (NotDetected) 06/04/22 19:01 Ur Amphetamines Screen Not Detected (NotDetected) 06/04/22 19:01 U Methamphetamines Scrn Not Detected (NotDetected) 06/04/22 19:01 U Benzodiazepines Scrn Not Detected (NotDetected) 06/04/22 19:01 Urine Cocaine Screen Not Detected (NotDetected) 06/04/22 19:01 U Marijuana (THC) Screen Not Detected (NotDetected) 06/04/22 19:01 Coronavirus (PCR) Not Detected (Not Detectd) 06/05/22 10:37 06/05/22 17:22 IDENTIFYING DATA: Patient is a single, unemployed, 56-year-old [place] male who is presenting with psychosis. HPI: Patient was brought into the ED by his mother due to concern about seeing drones. While in the ED, patient was angry and did not want to be admitted psychiatrically. Patient was admitted to this unit in March for similar complaints and was discharged on Seroquel 400 mg at night. He was meant to follow-up with [facility] but per review of outpatient care, patient did not follow up with [facility] and has not been compliant with his medication. Patient was evaluated in the interview room today. He reports being very concerned by drones that he has been seeing in the shireen, ongoing for the past 8 months. He states that when he points them onto others, they think that they are stars. He states "I am not stupid. I'm very smart "and that he is convinced that there are drones and not stars. He says that he is unsure of who might be operating the drones but believes that they must be within a limited radius. He believes that they are following him from his home to this hospital. He states that they are able to capture images of him in any room and follow him. As a result, he requests that his window in the hospital bed is covered. When asked why he did not reported to police, patient says that he reported it to the police but that they are "stupid "and have limited resources. He states that when he reported to them, they brought him to the ED in March 2022. He wonders of government may be involved but says that the drones have been following him and his friend who recently . Patient says that he is aware that the drones are following him based on a heat emitted onto his skin from the light of the drones and the sensation of vibration around his thighs. He is frustrated that nothing is being done about his concern with drones and is adamant that he does not need psychiatric hospitalization or treatment. He hopes that this provider will go "above and beyond "and help him get rid of the drones. In psychiatric review of systems, patient denies a history of feeling paranoid in the past. He denies auditory and visual hallucinations. He endorses trouble sleeping because he is worried about the drones. Patient endorses regular methamphetamine use that began in the past year and reports having stopped using in the past 1 month. However, he continues to have this concern about the drones and their effects on him. On risk assessment, patient denies suicidal ideation as asked and assessed. He states that if he discovers who is operating the drones, he would hurt him, but denies homicidal ideation. Patient reports having access to firearms. Patient was cooperative during this assessment but when he was later informed of his involuntary hospitalization, patient became agitated, shouting foul language at this provider and required Haldol and Ativan PRN. Of note, per discussion with EPS nurse from overnight, patient's mother was frustrated by his mental health and was hoping for him to get stabilization prio r to discharge. Patient was noted to be speaking over the phone with his mother today and was screaming saying "you are as stupid as they are". Previous psychiatric history: Last psychiatric hospitalization [facility] for similar concerns and was discharged on Seroquel 400 mg qHS. Patient did not follow up with [facility] and was not taking Seroquel outpatient. Substance use history: Prior hx- He insists that he does not abuse any drugs or alcohol except to drink 1 or 2 beers a day at times. However later on he said he was doing all kinds 100 drugs in the past and was kicked out of school in 11th grade for doing drugs he had done cocaine mescaline pot and was a heavy drinker. Today, UDS negative during this admission but was positive for amphetamines, benzos, and TCAs at last admission in 03/2022. Patient reports that he largely uses methamphetamine and that this began the past year. He reports using a large amount daily. He states that he has access to as much methamphetamine as he would like. He reports being sober of methamphetamine over the past one month. He endorses a history of substance use of "everything" when he was younger but that his drug of choice is methamphetamine. Previous medical history: He has hypothyroidism COPD GERD and BPH. He is not ALLERGIC to any medication. He said he had an accident at the age of 21 and apparently the dorsum of left hand was injured and appears quite reddish now with some mild deformity. Social history: Prior history: He was raised well by his parents. As noted above he was kicked out of school in 11th grade for abusing several drugs. He did not get his GED. He is single and was never . He does not have any children. He was not in the service. He said he does not have any restorationism but believes in God. He was not in the service. He has health insurance. Today, patient states that he quit working with his father in the [employer] business over the last 1 month. Family history: He denies any physical or psychiatric issues in the family. MENTAL STATUS EXAM: General Appearance: Patient appears to be older than stated age is alert. Patient appears to have poor hygiene and grooming. Behavior: Restless during interview but agitated when discussing mental health Speech: Patient's speech is fluent and nonpressured. Mood/Affect: Patient reports their mood is irritable, anxious, affect is congruent Suicidality/Homicidality: Patient denies having any homicidal ideation intent or plan. Denies any suicidal ideations intent or plan Perceptions: Patient denies any visual hallucinations and denies any auditory hallucinations. Endorses tactile hallucinations Though content/process: Persecutory delusions about drones Memory and concentration: AOX3, low concentration Judgment and insight: poor and poor impulse control STRENGTHS/WEAKNESSES: Comorbid substance use is a weakness. Strength is social support of his family. 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 He also displays decline in function with quitting work and isolating from family members. 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 Second certificate signed and placed in patient's chart. -Medications: Resume Seroquel 400 mg at night for psychosis. Although attempted, patient is unwilling to engage in conversation about other psychiatric medications. -Patient was counselled on substance abuse. Motivational interviewing. -Patient was informed of the risks, benefits and side effects of the medication and patient verbally consented to taking the medications -Internal Medicine consult to perform medical evaluation and physical. -SW on board for discharge planning. Encourage patient to participate in groups to work on coping skills. Patient endorses having access to firearms - will need to be addressed prior to discharge.
[2022-06-05] MEDS ORDERED: QUEtiapine 400 MG TAB PO SCH (21:00)
[2022-06-06] MEDS: NICOTINE 14MG/24HR PATCH TRANSDERM SCH (08:22)
[2022-06-06] MEDS: LEVOTHYROXINE 50 MCG TAB PO SCH (08:23)
[2022-06-06] MEDS: PANTOPRAZOLE 40 MG TABLET PO SCH (08:23)
[2022-06-06] MEDS: ACETAMINOPHEN TAB 325 MG TAB PO PRN (08:25)
[2022-06-06] MEDS: LORazepam 1 MG TAB PO PRN ×3 (08:26→22:06)
[2022-06-06] MEDS ORDERED: TAMSULOSIN 0.4 MG CAP.ER.24H PO SCH (09:00)
--- NOTE | 2022-06-06 13:16 | P.PN ---
Progress Note - Text Progress Note Date: 06/06/22 Interval History: Patient was seen resting in bed and was directable and agreeable to speak with director underwriter sales in his room., The patient is not reporting any suicidal or homicidal ideation. He is however reporting some visual hallucinations and concerns for delusions of surveillance. He does acknowledge some drones that have been following him. He refused his medications last night. He refuses to answer most of the questions asked by this provider as he appears to be mostly somnolent. Mental Status Exam: General Appearance: Patient appears to be stated age is somnolent and uncooperative. Behavior: She is calmly lying down in bed without any agitated behavior. Speech: Patient's speech is nonspontaneous, monotone. Mood/Affect: Mood is "tired." Affect is obstinate and flat. Suicidality/Homicidality: Patient denies having any suicidal or homicidal ideation intent or plan. Perceptions: Patient reports some visual hallucinations however refuses to expand. Denies auditory hallucinations Though content/process: Patient reports delusions of surveillance and drones. Memory and concentration: AOX3, grossly intact for the purposes of this session Judgment and insight: Very poor Vital Signs Temp 97.5 F L 06/05/22 14:40 Pulse 96 06/05/22 14:40 Resp 18 06/05/22 14:40 BP 114/72 06/05/22 14:40 Pulse Ox 95 06/05/22 14:40 FiO2 Intake & Output 06/05/22 06/06/22 06/06/22 18:59 06:59 18:59 Weight 75 kg Assessment Unspecified psychosis, rule out schizophrenia Nicotine dependence Plan: -Patient continues to meet criteria for inpatient psychiatric admission for symptom stabilization and safety. Due to nonadherence with treatment, we will file a demand for court. -Medications: Discontinue Seroquel and start Invega 3 mg at bedtime for psychosis. Plan is to transition to a long-acting Invega Sustenna -When necessary Ativan and Haldol for agitation/aggression. -NRT - nicotine patch -SW on board for discharge planning. Encouraged the patient to participate in milieu.
[2022-06-06] MEDS: haloperidoL 5 MG TAB PO PRN ×2 (16:57→22:06)
[2022-06-06] MEDS ORDERED: PALIPERIDONE 3 MG TAB.ER.24 PO SCH (21:00)
[2022-06-07] MEDS: LEVOTHYROXINE 50 MCG TAB PO SCH (06:26)
[2022-06-07] MEDS: NICOTINE 14MG/24HR PATCH TRANSDERM SCH ×2 (08:15→17:35)
[2022-06-07] MEDS: PANTOPRAZOLE 40 MG TABLET PO SCH (08:16)
--- NOTE | 2022-06-07 13:12 | P.PN ---
Progress Note - Text Progress Note Date: 06/07/22 Interval History: Patient was seen resting in bed and was directable and agreeable to speak with telegraphic typewriter mechanic in his room. The patient continues to endorse delusional belief of drone surveillance. He also reports that he is able to hear these drones "30/01." He is currently denying any suicidal or homicidal ideation, intention, and/or plan. He is not reporting any visual hallucinations. When asked directly how these hallucinations affecting his day-to-day life choices, the patient is unable to provide any clear answer. He has been adherent with his medication and is not reporting any significant side effects however he wishes to have his medications scheduled in the morning. Mental Status Exam: General Appearance: Patient appears to be stated age is alert, cooperative, and polite. Fair hygiene and grooming. Behavior: He is calmly lying down in bed without any agitated behavior. Speech: Patient's speech is nonspontaneous, monotone. Mood/Affect: Mood is "okay." Affect is blunted. Suicidality/Homicidality: Patient denies having any suicidal or homicidal ideat ion intent or plan. Perceptions: Patient denies any visual hallucinations. Reports auditory hallucinations of drones. Though content/process: Patient reports delusions of surveillance and drones. Memory and concentration: AOX3, grossly intact for the purposes of this session Judgment and insight: Very poor Vital Signs Temp 98.8 F 06/07/22 06:45 Pulse 80 06/07/22 06:45 Resp 16 06/07/22 06:45 BP 167/69 06/07/22 06:45 Pulse Ox 93 L 06/07/22 06:45 FiO2 Assessment Unspecified psychosis, rule out schizophrenia Nicotine dependence Plan: -Patient continues to meet criteria for inpatient psychiatric admission for symptom stabilization and safety. Due to nonadherence with treatment, we will file a demand for court. -Medications: Increase Invega to 6 mg by mouth daily for psychosis. Plan is to transition to a long-acting Invega Sustenna -When necessary Ativan and Haldol for agitation/aggression. -NRT - nicotine patch -SW on board for discharge planning. Encouraged the patient to participate in milieu.
[2022-06-07] MEDS: LORazepam 1 MG TAB PO PRN (15:41)
[2022-06-07] MEDS: haloperidoL 5 MG TAB PO PRN (15:41)
[2022-06-08] MEDS: PANTOPRAZOLE 40 MG TABLET PO SCH (08:22)
[2022-06-08] MEDS: LEVOTHYROXINE 50 MCG TAB PO SCH (08:22)
[2022-06-08] MEDS: NICOTINE 14MG/24HR PATCH TRANSDERM SCH (08:23)
[2022-06-08] MEDS: LORazepam 1 MG TAB PO PRN ×2 (08:24→18:02)
[2022-06-08] MEDS ORDERED: PALIPERIDONE 3 MG TAB.ER.24 PO SCH (09:00)
[2022-06-08] MEDS: ACETAMINOPHEN TAB 325 MG TAB PO PRN ×2 (13:41→18:02)
--- NOTE | 2022-06-08 14:13 | P.PN ---
Progress Note - Text Progress Note Date: 06/08/22 Interval History: Patient was seen resting in bed and was directable and agreeable to speak with song writer in the office. The patient continues to report delusional belief of surveillance. He is reporting auditory hallucinations of drones and feeling that drones are constantly observing him. He reports that these drones have severely impacted his life causing him to lose his job. The patient vehemently endorses their existence. He reports that he is not reacting to them because if he is to do so, he would worry the patient's currently admitted on to the psychiatric unit. He states that the drones surveilling him are significantly impacting his life but he is doing his best not to show it. He is adherent with his medication and is not reporting any significant side effects at this time. He is scheduled for court on 06/15/2022. Mental Status Exam: General Appearance: Patient appears to be stated age is alert, cooperative, and polite. Fair hygiene and grooming. Behavior: He is calmly lying down in bed without any agitated behavior. Speech: Patient's speech is nonspontaneous, monotone. Mood/Affect: Mood is "okay." Affect is blunted. Suicidality/Homicidality: Patient denies having any suicidal or homicidal ideation intent or plan. Perceptions: Patient denies any visual hallucinations. Reports auditory hallucinations of drones. Though content/process: Patient reports delusions of surveillance and drones. Memory and concentration: AOX3, grossly intact for the purposes of this session Judgment and insight: Poor Vital Signs Temp 98.8 F 06/07/22 06:45 Pulse 80 06/07/22 06:45 Resp 16 06/07/22 06:45 BP 167/69 06/07/22 06:45 Pulse Ox 93 L 06/07/22 06:45 FiO2 Assessment Unspecified psychosis, rule out schizophrenia Rule out delusional disorder Nicotine dependence Plan: -Patient continues to meet criteria for inpatient psychiatric admission for symptom stabilization and safety. Due to nonadherence with treatment, we will file a demand for court. Court scheduled for 06/15/2022. -Medications: Increase Invega to 9 mg by mouth daily for psychosis. Plan is to transition to a long-acting Invega Sustenna -When necessary Ativan and Haldol for agitation/aggression. -NRT - nicotine patch -SW on board for discharge planning. Encouraged the patient to participate in milieu.
[2022-06-09] MEDS: haloperidoL 5 MG TAB PO PRN ×2 (02:01→16:42)
[2022-06-09] MEDS: LORazepam 1 MG TAB PO PRN ×3 (02:01→20:38)
[2022-06-09] MEDS: NICOTINE 14MG/24HR PATCH TRANSDERM SCH (08:18)
[2022-06-09] MEDS: LEVOTHYROXINE 50 MCG TAB PO SCH (08:18)
[2022-06-09] MEDS: PANTOPRAZOLE 40 MG TABLET PO SCH (08:18)
[2022-06-09] MEDS ORDERED: PALIPERIDONE 3 MG TAB.ER.24 PO SCH (09:00)
[2022-06-09] MEDS ORDERED: PALIPERIDONE IM 234 MG/1.5 ML SYG IM STA (13:39)
--- NOTE | 2022-06-09 13:47 | P.PN ---
Progress Note - Text Progress Note Date: 06/09/22 Interval History: Patient was seen resting in bed and was directable and agreeable to speak with sql report writer in his room. Patient has been noted by staff and this provider to engage in more milieu activities and attending groups. He does report feeling restless with the invega at bedtime. He states he is feeling tired due to poor sleep from the invega medication. He is otherwise denying any psychiatric pathology today. He reports no auditory or visual hallucinations. He is denying any paranoia or other delusions. He reports that he has not been experiencing any surveillance from any drones over the past day. He wishes to be discharged soon but understands that he is waiting for court. He is agreeable to sign a waiver and stipulate court and to continue taking medications. He is in agreement to take Invega Sustenna today. Mental Status Exam: General Appearance: Patient appears to be stated age is alert, cooperative, and polite. Fair hygiene and grooming. Behavior: He is calmly lying down in bed without any agitated behavior. Speech: Patient's speech is nonspontaneous, monotone. Mood/Affect: Mood is "okay." Affect is euthymic with appropriate range. Suicidality/Homicidality: Patient denies having any suicidal or homicidal ideation intent or plan. Perceptions: Patient denies any auditory or visual hallucinations. Though content/process: Patient does not endorse any delusional thought content today. Thought process is linear, logical, and future oriented. Memory and concentration: AOX3, grossly intact for the purposes of this session Judgment and insight: Mildly improving Vital Signs Temp 97.5 F L 06/09/22 02:04 Pulse 93 06/09/22 02:04 Resp 14 06/09/22 02:04 BP 101/74 06/09/22 02:04 Pulse Ox 93 L 06/07/22 06:45 FiO2 Assessment Unspecified psychosis, rule out schizophrenia Rule out delusional disorder Nicotine dependence Plan: -Patient continues to meet criteria for inpatient psychiatric admission for symptom stabilization and safety. Due to nonadherence with treatment, we will file a demand for court. Court scheduled for 06/15/2022. He wishes to waive and stipulate to a court order. -Medications: Administer invega sustenna 234 mg IM today. -When necessary Ativan and Haldol for agitation/aggression. -NRT - nicotine patch -SW on board for discharge planning. Encouraged the patient to participate in milieu.
[2022-06-09] MEDS: ACETAMINOPHEN TAB 325 MG TAB PO PRN (16:41)
--- NOTE | 2022-06-10 08:24 | CONS ---
CONSULTATION CHIEF COMPLAINT: Major depression. HISTORY OF PRESENT ILLNESS: This gentleman was admitted through the emergency room for depression and acute psychosis. He will not give any history. He does have a great deal of swelling in the left hand relating some kind of trauma. REVIEW OF SYSTEMS: He is uncooperative and will not answer any questions. Past medical history, family history, and personal and social histories can be found in his admitting note. He was last seen in my office in December and was on: 1. Vitamin D. 2. Symbicort. 3. ProAir. 4. Flomax. 5. Benadryl. 6. Lovastatin. 7. Pantoprazole. 8. Levothyroxine. At that time, he was being evaluated for GERD. PHYSICAL EXAMINATION: VITAL SIGNS: Blood pressure is 145/90 with a pulse of 86. Respirations were 15. He is afebrile. HEAD, EARS, EYES, NOSE, MOUTH, AND THROAT: Normal. CHEST: Clear. CARDIAC: Demonstrates sinus rhythm. ABDOMEN: Soft and nontender. It was flat. EXTREMITIES: Normal except for the left hand where there is swelling over the dorsal hand and the knuckles. NEUROLOGIC: He was sleepy, but intact. IMPRESSION: 1. Major depression. 2. Contusion and sprain of the left hand. 3. History of gastroesophageal reflux disease. RECOMMENDATIONS: None at this time. Thank you respectively, MD NIDIA Mays II / SHAHLA: [id number] /
[2022-06-10] MEDS: LEVOTHYROXINE 50 MCG TAB PO SCH (08:30)
[2022-06-10] MEDS: PANTOPRAZOLE 40 MG TABLET PO SCH (08:31)
[2022-06-10] MEDS: NICOTINE 14MG/24HR PATCH TRANSDERM SCH ×2 (08:32→12:19)
--- NOTE | 2022-06-10 11:52 | P.PN ---
Progress Note - Text Progress Note Date: 06/10/22 Interval History: Patient was seen resting in bed and was directable and agreeable to speak with filing writer in his room. The patient is currently denying any suicidal or homicidal ideation, intention, and/or plan. He is not reporting any auditory or visual hallucinations. He denies any paranoia or other delusions. He reports some arm soreness however denies any other significant side effects. He reports no chest pain, palpitations, or acute dystonic reactions. The patient has been eating appropriately and attending groups. He is not endorsing any delusional thoughts today and is looking for to discharge. He reports that he will waive and stipulate court. Mental Status Exam: General Appearance: Patient appears to be stated age is alert, cooperative, and polite. Fair hygiene and grooming. Behavior: He is calmly lying down in bed without any agitated behavior. Speech: Patient's speech is nonspontaneous, monotone. Mood/Affect: Mood is "okay." Affect is euthymic with appropriate range. Suicidality/Homicidality: Patient denies having any suicidal or homicidal ideation intent or plan. Perceptions: Patient denies any auditory or visual hallucinations. Though content/process: Patient does not endorse any delusional thought content today. Thought process is linear, logical, and future oriented. Memory and concentration: AOX3, grossly intact for the purposes of this session Judgment and insight: Mildly improving Vital Signs Temp 97.5 F L 06/09/22 02:04 Pulse 93 06/09/22 02:04 Resp 14 06/09/22 02:04 BP 101/74 06/09/22 02:04 Pulse Ox 93 L 06/07/22 06:45 FiO2 Assessment Unspecified psychosis, rule out schizophrenia Rule out delusional disorder Nicotine dependence Plan: -Patient continues to meet criteria for inpatient psychiatric admission for symptom stabilization and safety. Due to nonadherence with treatment, we will file a demand for court. Court scheduled for 06/15/2022. He wishes to waive and stipulate to a court order. If the patient is able to waive and stipulate today, we will attempt discharge today. -Medications: Invega Sustenna 234 mg IM was administered on 06/09/2022. Next dose of Invega Sustenna 156 mg IM will be due on 06/13/2022. -When necessary Ativan and Haldol for agitation/aggression. -NRT - nicotine patch -SW on board for discharge planning. Encouraged the patient to participate in milieu.
[2022-06-10] MEDS: LORazepam 1 MG TAB PO PRN ×2 (12:20→20:37)
[2022-06-10] MEDS ORDERED: LORazepam 2 MG/ML INJ IM PRN (13:22)
[2022-06-11 00:20] VITALS: RESP 16
[2022-06-11] MEDS: haloperidoL 5 MG TAB PO PRN (00:21)
[2022-06-11] MEDS: ACETAMINOPHEN TAB 325 MG TAB PO PRN ×4 (01:18→22:57)
[2022-06-11] MEDS: LEVOTHYROXINE 50 MCG TAB PO SCH (06:23)
[2022-06-11] MEDS: NICOTINE 14MG/24HR PATCH TRANSDERM SCH (10:44)
[2022-06-11] MEDS: PANTOPRAZOLE 40 MG TABLET PO SCH (10:44)
[2022-06-11] MEDS: NAPROXEN 250 MG TAB PO SCH ×2 (16:56→20:46)
[2022-06-11] MEDS ORDERED: QUEtiapine 50 MG TAB PO PRN (18:03)
--- NOTE | 2022-06-11 18:37 | P.PN ---
Progress Note - Text Progress Note Date: 06/11/22 Interval history: Patient was seen wandering the hallway and was agreeable to speak with typewriter assembly and parts inspector. He jokingly refers to himself as "King Anam" and is somewhat demanding on assessment. He appears to be medication seeking, reports he has difficulty falling asleep and asks for "Xanibar". He declines Trazodone and Remeron. We discussed adding Seroquel 50 mg QHS PRN for sleep and he requests that he get it at dinner time because he likes to go to bed early. He complains of hip pain and asks to see the medical doctor, and was ordered Alleve. At this time patient denies any suicidal or homicidal ideation, intent or plan. Denies any auditory or visual hallucinations. Patient denies any side effects from the medications and has been compliant with meds. Mental status exam: General Appearance: Patient appears to be stated age, dressed in casual attire, adequate hygiene and grooming. Behavior: No agitated behavior, but some drug seeking behaviors noted. Speech: Patient's speech is fluent and non-pressured. Mood/Affect: Mood is improving mildly, affect is congruent with some lability. Suicidality/Homicidality: Patient denies having any suicidal or homicidal ideation intent or plan. Perceptions: Patient denies any auditory or visual hallucinations. Though content/process: There is no evidence of any delusional thought content and thought process is linear and goal-directed. Memory and concentration: AOX3, grossly intact for the purposes of this session Judgment and insight: improving mildly Assessment/Plan: Continue with current diagnosis. Patient continues to meet criteria for inpatient psychiatric admission for symptom stabilization and safety. Start Seroquel 50 mg daily PRN for sleep. Continue other medications as currently ordered. Monitor for medication compliance and for any psychotropic medication side effects. Will continue to monitor ongoing response to treatment. Encouraged participation in milieu.
[2022-06-11] MEDS: LORazepam 1 MG TAB PO PRN (22:58)
[2022-06-12] MEDS: LEVOTHYROXINE 50 MCG TAB PO SCH (07:09)
[2022-06-12] MEDS: NAPROXEN 250 MG TAB PO SCH ×2 (08:25→20:40)
[2022-06-12] MEDS: PANTOPRAZOLE 40 MG TABLET PO SCH (08:25)
[2022-06-12] MEDS: NICOTINE 14MG/24HR PATCH TRANSDERM SCH (08:25)
[2022-06-12] MEDS: ACETAMINOPHEN TAB 325 MG TAB PO PRN ×2 (13:36→17:51)
[2022-06-12] MEDS ORDERED: QUEtiapine 100 MG TAB PO PRN (13:48)
--- NOTE | 2022-06-12 15:07 | P.PN ---
Progress Note - Text Progress Note Date: 06/12/22 Interval history: Patient was seen wandering the hallway and was agreeable to speak with residential mortgage underwriter. He reports he slept a little bit better last night after taking the Seroquel 50 mg QHS PRN but would like the dose increased. He reports his mood is better today after sleeping better last night. He shows me his room which he cleaned and made his bed. At this time patient denies any suicidal or homicidal ideation, intent or plan. Denies any auditory or visual hallucinations. Patient denies any side effects from the medications and has been compliant with meds. Mental status exam: General Appearance: Patient appears to be stated age, dressed in casual attire, adequate hygiene and grooming. Behavior: No agitated behavior, attempts to cooperate Speech: Patient's speech is fluent and non-pressured. Mood/Affect: Mood is improving mildly, affect is congruent and stable. Suicidality/Homicidality: Patient denies having any suicidal or homicidal ideation intent or plan. Perceptions: Patient denies any auditory or visual hallucinations. Though content/process: There is no evidence of any delusional thought content and thought process is linear and goal-directed. Memory and concentration: AOX3, grossly intact for the purposes of this session Judgment and insight: improving mildly Assessment/Plan: Continue with current diagnosis. Patient continues to meet criteria for inpatient psychiatric admission for symptom stabilization and safety. Increase Seroquel to 100 mg QHS PRN for sleep. Continue other medications as currently ordered. Monitor for medication compliance and for any psychotropic medication side effects. Will continue to monitor ongoing response to treatment. Encouraged participation in milieu.
[2022-06-13] MEDS: LORazepam 1 MG TAB PO PRN (00:56)
[2022-06-13] MEDS: haloperidoL 5 MG TAB PO PRN (06:15)
[2022-06-13] MEDS: LEVOTHYROXINE 50 MCG TAB PO SCH (06:15)
[2022-06-13 07:02] VITALS: BP 113/80; PULSE 94; TEMP 97.8
[2022-06-13] MEDS: PANTOPRAZOLE 40 MG TABLET PO SCH (08:11)
[2022-06-13] MEDS: NAPROXEN 250 MG TAB PO SCH (08:11)
[2022-06-13] MEDS: NICOTINE 14MG/24HR PATCH TRANSDERM SCH (08:11)
[2022-06-13] MEDS ORDERED: PALIPERIDONE IM 156 MG/ML SYG IM STA (09:10)
--- NOTE | 2022-06-13 12:47 | P.DS ---
Providers Date of admission: 06/05/22 11:45 Expected date of discharge: 06/13/22 Attending physician: Thomas Mcintyre MD Consults: 06/05/22 11:50 Consult Physician Routine Consulting Provider: Jay Jay Clark Consult Reason/Comments: history and physical Do you want consulting provider notified?: Yes Primary care physician: Jay Jay Clark - Discharge Diagnosis(es) (1) Schizophrenia Current Visit: Yes Status: Acute Priority: High (2) Nicotine dependence Current Visit: Yes Status: Chronic Priority: Medium Hospital Course: Admission HPI: Initial psychiatric evaluation was completed by Dr Rodriguez on 06/05/2022 who wrote: Patient is a single, unemployed, 56-year-old [place] male who is presenting with psychosis. Patient was brought into the ED by his mother due to concern about seeing drones. While in the ED, patient was angry and did not want to be admitted psychiatrically. Patient was admitted to this unit in March for similar complaints and was discharged on Seroquel 400 mg at night. He was meant to follow-up with [facility] but per review of outpatient care, patient did not follow up with [facility] and has not been compliant with his medication. Patient was evaluated in the interview room today. He reports being very concerned by drones that he has been seeing in the shireen, ongoing for the past 8 months. He states that when he points them onto others, they think that they are stars. He states "I am not stupid. I'm very smart "and that he is convinced that there are drones and not stars. He says that he is unsure of who might be operating the drones but believes that they must be within a limited radius. He believes that they are following him from his home to this hospital. He states that they are able to capture images of him in any room and follow him. As a result, he requests that his window in the hospital bed is covered. When asked why he did not reported to police, patient says that he reported it to the police but that they are "stupid "and have limited resources. He states that when he reported to them, they brought him to the ED in March 2022. He wonders of government may be involved but says that the drones have been following him and his friend who recently . Patient says that he is aware that the drones are following him based on a heat emitted onto his skin from the light of the drones and the sensation of vibration around his thighs. He is frustrated that nothing is being done about his concern with drones and is adamant that he does not need psychiatric hospitalization or treatment. He hopes that this provider will go "above and beyond "and help him get rid of the drones. In psychiatric review of systems, patient denies a history of feeling paranoid in the past. He denies auditory and visual hallucinations. He endorses trouble sleeping because he is worried about the drones. Patient endorses regular methamphetamine use that began in the past year and reports having stopped using in the past 1 month. However, he continues to have this concern about the drones and their effects on him. On risk assessment, patient denies suicidal ideation as asked and assessed. He states that if he discovers who is operating the drones, he would hurt him, but denies homicidal ideation. Patient reports having access to firearms. Patient was cooperative during this assessment but when he was later informed of his involuntary hospitalization, patient became agitated, shouting foul language at this provider and required Haldol and Ativan PRN. Of note, per discussion with EPS nurse from overnight, patient's mother was frustrated by his mental health and was hoping for him to get stabilization prior to discharge. Patient was noted to be speaking over the phone with his mother today and was screaming saying "you are as stupid as they are". Hospital course: Upon admission to the unit patient was initially noted to have poor hygiene and grooming, was irritable, anxious, and easily agitated. Patient was however directable and agreeable to commence treatment. Patient got along well with other patients on the unit and followed unit protocol. Patient was compliant with the medications and denied any side effects throughout hospital course. Patient was started on Seroquel for psychosis. However, the Seroquel did not appear to decrease the severity of his psychotic symptoms. The patient was therefore transition to Invega. As Invega was gradually titrated, the patient became less psychotic. His delusions of surveillance and paranoia gradually decreased. He was eventually transition to Invega Sustenna. The patient was scheduled for court on 06/15/2022 however on 06/13/2022, the patient waived and stipulated court. The patient received a second loading dose of Invega Sustenna on 06/13/2022. He reported no significant side effects and tolerated the medication well. Furthermore seroquel was added to his regimen to aid with sleep. On the day of discharge, the patient is not reporting any suicidal or homicidal ideation, intention, and/or plan. He reports no auditory or visual hallucinations. He denies any paranoia or other delusions. He has been adherent with his medication and is not reporting any side effects. He reports no medical issues or concerns and denies any chest pain, SOB, palpitations, or muscle dystonias. The patient does have a history of substance abuse and was counseled at great length on abstaining from all subtances including nicotine, alcohol, marijuana, and illicit drugs such as methamphetamines. He did not wish to go to inpatient rehab. The patient was counseled at great length on the points medication adherence and appropriate outpatient follow-up. He was informed that he did sign a waiver and stipulation and that if he was to stop taking his medications are not choked his appointments, he may be brought back to the hospital against his will. The patient also reported no access to firearms or other weapons. As the patient wanted criteria for continued inpatient admission, he was subsequently discharged. Mental status exam: General Appearance: Patient appears to be stated age is alert, pleasant, and cooperative. Patient is in no acute distress and has fair hygiene and grooming Behavior: Patient is calmly seated without any agitated behavior. Speech: Patient's speech is fluent and nonpressured. Mood/Affect: Patient reports their mood is "much better", affect is congruent and euthymic. Suicidality/Homicidality: Patient denies having any suicidal or homicidal ideation intent or plan. Perceptions: Patient denies any auditory or visual hallucinations. Though content/process: There is no evidence of any delusional thought content and thought process is linear and goal-directed. Patient is future oriented Memory and concentration: AOX3, grossly intact for the purposes of this session. Can spell "WORLD" backwards correctly. Judgment and insight: Improved with guarded prognosis Impression: Schizophrenia Nicotine dependence Plan: -Continue with discharge today as patient has improved and stabilized psychiatrically and is not currently an imminent threat to himself and/or others. Patient remain at chronically elevated risk for self-harm due to severity of his mental illness. -Continue medications: Invega sustenna 156 mg IM was adminstered on 06/13/2022. Next dose due on 06/27/2022. Seroquel 100 mg HS PRN for insomnia - Patient is on dual antipsychotic therapy at this time. Should the patient be stable on invega alone, seroquel can be tapered. Will defer to outpatient management. Requip 0.25 mg at bedtime for restless leg. -Patient was counseled on the need for medication compliance and appropriate follow-up at mental health and also primary care for medical issues. Patient verbalized understanding and agreed. -Social work to arrange for and conduct family meeting to ensure safety upon discharge and answer any questions/concerns. Social work also to arrange for patients follow up appointments with [facility] for psychiatric care along with follow up with primary care provider. -Patient counseled on abstaining from recreational drugs and marijuana and alcohol. Was informed/educated on the adverse effects on their physical and mental health. Patient verbally agreed and understood. Patient was offered substance abuse treatment however declined at this time. -Patient was instructed to return to the hospital or seek immediate medical care if their psychiatric or medical symptoms do worsen or reoccur. -Psychoeducation and supportive therapy provided to patient. Risks and benefits of pharmacological treatment versus the risks and benefits of nontreatment weight and discussed. Informed consent discussion held. Common side effects of psychotropics discussed such as, but not limited to headache, GI disturbance, sexual dysfunction, movement disorders, sedation, and orthostatic hypotension. Life threatening and blackbox warnings of prescribed medications also discussed. Potential risks of operating a vehicle or heavy machinery discussed with patient at length. Advised on importance of compliance and a reliable and responsible manner. Patient advised to review FDA consumer labeling of all medications prior to taking. Patient verbalized understanding of potential risks, and agrees with current treatment plan. Patient advised to medically contact physician/emergency personnel if any acute changes in condition occur. Vital Signs Temp 97.8 F 06/13/22 06:15 Pulse 94 06/13/22 06:15 Resp 16 06/13/22 06:15 BP 113/80 06/13/22 06:15 Pulse Ox 98 06/13/22 06:15 FiO2 Laboratory Results WBC 7.1 k/uL (3.8-10.6) 06/04/22 20:49 RBC 4.47 m/uL (4.30-5.90) 06/04/22 20:49 Hgb 14.0 gm/dL (13.0-17.5) 06/04/22 20:49 Hct 41.9 % (39.0-53.0) 06/04/22 20:49 MCV 93.7 fL (80.0-100.0) 06/04/22 20:49 MCH 31.3 pg (25.0-35.0) 06/04/22 20:49 MCHC 33.4 g/dL (31.0-37.0) 06/04/22 20:49 RDW 13.4 % (11.5-15.5) 06/04/22 20:49 Plt Count 387 k/uL (150-450) 06/04/22 20:49 MPV 7.3 06/04/22 20:49 Neutrophils % 54 % 06/04/22 20:49 Lymphocytes % 29 % 06/04/22 20:49 Monocytes % 10 % 06/04/22 20:49 Eosinophils % 4 % 06/04/22 20:49 Basophils % 1 % 06/04/22 20:49 Neutrophils # 3.8 k/uL (1.3-7.7) 06/04/22 20:49 Lymphocytes # 2.1 k/uL (1.0-4.8) 06/04/22 20:49 Monocytes # 0.7 k/uL (0-1.0) 06/04/22 20:49 Eosinophils # 0.3 k/uL (0-0.7) 06/04/22 20:49 Basophils # 0.1 k/uL (0-0.2) 06/04/22 20:49 Sodium 139 mmol/L (137-145) 06/04/22 20:49 Potassium 4.4 mmol/L (3.5-5.1) 06/04/22 20:49 Chloride 109 mmol/L (98-107) H 06/04/22 20:49 Carbon Dioxide 25 mmol/L (22-30) 06/04/22 20:49 Anion Gap 5 mmol/L 06/04/22 20:49 BUN 14 mg/dL (9-20) 06/04/22 20:49 Creatinine 0.76 mg/dL (0.66-1.25) 06/04/22 20:49 Est GFR (CKD-EPI)AfAm >90 (>60 ml/min/1.73 sqM) 06/04/22 20:49 Est GFR (CKD-EPI)NonAf >90 (>60 ml/min/1.73 sqM) 06/04/22 20:49 Glucose 92 mg/dL (74-99) 06/04/22 20:49 Calcium 9.1 mg/dL (8.4-10.2) 06/04/22 20:49 Urine Color Colorless 06/04/22 19:01 Urine Appearance Clear (Clear) 06/04/22 19: Urine pH 6.0 (5.0-8.0) 06/04/22 19: Ur Specific [place] 1.006 (1.001-1.035) 06/04/22 19:01 Urine Protein Negative (Negative) 06/04/22 19:01 Urine Glucose (UA) Negative (Negative) 06/04/22 19:01 Urine Ketones Negative (Negative) 06/04/22 19:01 Urine Blood Negative (Negative) 06/04/22 19:01 Urine Nitrite Negative (Negative) 06/04/22 19:01 Urine Bilirubin Negative (Negative) 06/04/22 19:01 Urine Urobilinogen <2.0 mg/dL (<2.0) 06/04/22 19:01 Ur Leukocyte Esterase Negative (Negative) 06/04/22 19:01 Urine Opiates Screen Not Detected (NotDetected) 06/04/22 19:01 Ur Oxycodone Screen Not Detected (NotDetected) 06/04/22 19:01 Urine Methadone Screen Not Detected (NotDetected) 06/04/22 19:01 Ur Propoxyphene Screen Not Detected (NotDetected) 06/04/22 19:01 Ur Barbiturates Screen Not Detected (NotDetected) 06/04/22 19:01 U Tricyclic Antidepress Not Detected (NotDetected) 06/04/22 19:01 Ur Phencyclidine Scrn Not Detected (NotDetected) 06/04/22 19:01 Ur Amphetamines Screen Not Detected (NotDetected) 06/04/22 19:01 U Methamphetamines Scrn Not Detected (NotDetected) 06/04/22 19:01 U Benzodiazepines Scrn Not Detected (NotDetected) 06/04/22 19:01 Urine Cocaine Screen Not Detected (NotDetected) 06/04/22 19:01 U Marijuana (THC) Screen Not Detected (NotDetected) 06/04/22 19:01 Coronavirus (PCR) Not Detected (Not Detectd) 06/05/22 10:37 Allergies Allergy/AdvReac Type Severity Reaction Status Date / Time No Known Allergies Allergy Verified 06/05/22 12:24 Patient Condition at Discharge: Stable Plan - Discharge Summary Discharge Rx Participant: No New Discharge Prescriptions: New rOPINIRole HCL [Requip] 0.25 mg PO HS 30 Days tab QUEtiapine [SEROquel] 100 mg PO HS PRN 30 Days tab PRN Reason: Insomnia Paliperidone IM [Invega Sustenna] 156 mg IM QMONTHLY #1 each Continue Pantoprazole [Protonix] 40 mg PO DAILY Tamsulosin HCl [Flomax] 0.4 mg PO DAILY Albuterol Sulfate [Proair Hfa] 2 puff INHALATION RT-Q6H PRN PRN Reason: Shortness Of Breath Lovastatin [Mevacor] 20 mg PO DAILY Levothyroxine Sodium [Synthroid] 50 mcg PO DAILY Ergocalciferol [Vitamin D2 (1250 Mcg = 18279 Iu)] 1,250 mcg PO Q30D tadalafiL 20 mg PO Q48H PRN PRN Reason: E.D. Discharge Medication List Levothyroxine Sodium [Synthroid] 50 mcg PO DAILY 10/08/20 [History] Pantoprazole [Protonix] 40 mg PO DAILY 10/08/20 [History] Albuterol Sulfate [Proair Hfa] 2 puff INHALATION RT-Q6H PRN 03/22/22 [History] Ergocalciferol [Vitamin D2 (1250 Mcg = 45615 Iu)] 1,250 mcg PO Q30D 03/22/22 [History] Tamsulosin HCl [Flomax] 0.4 mg PO DAILY 03/22/22 [History] Lovastatin [Mevacor] 20 mg PO DAILY 06/05/22 [History] tadalafiL 20 mg PO Q48H PRN 06/05/22 [History] Paliperidone IM [Invega Sustenna] 156 mg IM QMONTHLY #1 each 06/13/22 [Rx] QUEtiapine [SEROquel] 100 mg PO HS PRN 30 Days tab 06/13/22 [Rx] rOPINIRole HCL [Requip] 0.25 mg PO HS 30 Days tab 06/13/22 [Rx] Follow up Appointment(s)/Referral(s): [facility] [Outside] - 06/15/22 9:00 am Jay Jay Clark MD [Primary Care Provider] - 1-2 days Patient Instructions/Handouts: How to Stop Smoking (DC), Mood Disorders (DC), Psychotic Disorder (DC) Activity/Diet/Wound Care/Special Instructions: Avoid the use of street drugs and alcohol. Take all prescriptions as prescribed. When you are in need of refills on your medications, please contact your medical provider and/or outpatient psychiatrist to have this done. Please go to scheduled outpatient appointment for aftercare treatment. If symptoms return or become worse, call the crisis line at and/or go to the nearest emergency room for evaluation Discharge Disposition: HOME SELF-CARE
== END 2022-06-13 12:33 | disposition home or self-care (01) | DRG 885 ==
LOC: EC 18:42 → 3MHU 06-05 11:45
PROVIDERS: ADMIT Psychiatry & Neurology Psychiatry; ATTEND Psychiatry & Neurology Psychiatry
DX: F20.9 Schizophrenia, unspecified (principal); F17.200 Nicotine dependence, unspecified, uncomplicated; E03.9 Hypothyroidism, unspecified; E78.5 Hyperlipidemia, unspecified; F15.959 Other stimulant use, unspecified with stimulant-induced psychotic disorder, unspecified; F41.9 Anxiety disorder, unspecified; G25.81 Restless legs syndrome; I10 Essential (primary) hypertension; J44.9 Chronic obstructive pulmonary disease, unspecified; N40.0 Benign prostatic hyperplasia without lower urinary tract symptoms; S63.92XA Sprain of unspecified part of left wrist and hand, initial encounter; Z79.890 Hormone replacement therapy; Z20.822 Contact with and (suspected) exposure to COVID-19
CPT/HCPCS: 36415; 80048; 80306; 81003; 82075; 85025; 87635; 99285

== ENCOUNTER 2022-06-26 07:26 | Emergency (ER) | payer OTHER ==
[2022-06-26] MEDS ORDERED: SODIUM CHLORIDE 0.9% 1,000 ML IV STA (07:41)
[2022-06-26] MEDS ORDERED: KETOROLAC 15 MG/ML 1 ML VIAL IVP STA (07:41)
[2022-06-26] MEDS ORDERED: ASPIRIN 81 MG PO STA (07:41)
--- NOTE | 2022-06-26 07:45 | ED ---
General Adult HPI - General Chief complaint: Chest Pain Stated complaint: Chest Pain Time Seen by Provider: 06/26/22 07:34 Source: patient, RN notes reviewed, old records reviewed Mode of arrival: ambulatory Limitations: no limitations - History of Present Illness Initial comments: Patient is a 56-year-old male with past medical history remarkable for h ypertension, acid reflux, thyroid disorder, alcohol use who presents emergency Department complaining of chest pain. Started yesterday afternoon. States he does not recall what is triggering it. States it is worse on palpation. It is located just right of the sternum in the middle of his chest. It is worse with palpation, worse with movement of his torso or of his right arm. Worse with stretching backwards. Thought it might just be a pulmonary but due to his age wanted to come in and make sure it wasn't a heart issue. No history of CAD. No known family medical history as far as he is aware. Denies any shortness of breath. Denies any nausea, vomiting, abdominal pain. Denies any fevers, chills, cough. Denies any sick contacts. His no other acute complaints at this time. Presents for further evaluation at this time. States that the pain is somewhat of a feeling that "somebody punched me in the chest." It is achy, sharp. - Related Data Home Medications Medication Instructions Recorded Confirmed Levothyroxine Sodium [Synthroid] 50 mcg PO DAILY 10/08/20 06/05/22 Pantoprazole [Protonix] 40 mg PO DAILY 10/08/20 06/05/22 Albuterol Sulfate [Proair Hfa] 2 puff INHALATION RT-Q6H PRN 03/22/22 06/05/22 Ergocalciferol [Vitamin D2 (1250 1,250 mcg PO Q30D 03/22/22 06/05/22 Mcg = 25497 Iu)] Tamsulosin HCl [Flomax] 0.4 mg PO DAILY 03/22/22 06/05/22 Lovastatin [Mevacor] 20 mg PO DAILY 06/05/22 06/05/22 tadalafiL 20 mg PO Q48H PRN 06/05/22 06/05/22 Previous Rx's Medication Instructions Recorded Paliperidone IM [Invega Sustenna] 156 mg IM QMONTHLY #1 each 06/13/22 QUEtiapine [SEROquel] 100 mg PO HS PRN 30 Days tab 06/13/22 rOPINIRole HCL [Requip] 0.25 mg PO HS 30 Days tab 06/13/22 Allergies Allergy/AdvReac Type Severity Reaction Status Date / Time No Known Allergies Allergy Verified 06/26/22 07:33 Review of Systems ROS Statement: Those systems with pertinent positive or pertinent negative responses have been documented in the HPI. Review of Systems: CONST: Denies fever EYES: Denies blurry vision ENT: Denies nasal congestion C/V: Endorses chest wall pain. RESP: Denies shortness of breath GI: Denies abdominal pain : Denies dysuria SKIN: Denies rash. MSK: Denies joint pain. NEURO: Denies headache ROS Other: All systems not noted in ROS Statement are negative. Past Medical History Past Medical History: GERD/Reflux, Hyperlipidemia, Hypertension, Osteoarthritis (OA), Thyroid Disorder History of Any Multi-Drug Resistant Organisms: None Reported Past Surgical History: No Surgical Hx Reported Additional Past Surgical History / Comment(s): Degloving injury left hand, repaired. Past Anesthesia/Blood Transfusion Reactions: No Reported Reaction Additional Past Anesthesia/Blood Transfusion Reaction / Comment(s): "I really, really don't like needles, I'm going to need something for anxiety." Past Psychological History: No Psychological Hx Reported Smoking Status: Current every day smoker Past Alcohol Use History: Daily Past Drug Use History: None Reported - Past Family History Mother Family Medical History: No Reported History General Exam - General Exam Comments Initial Comments: General: Appears in no acute distress. HEAD: Normal with no signs of head trauma. EYES: PERRLA, EOMI, conjunctiva normal, no discharge. ENT: Hearing grossly intact, normal oropharynx. RESPIRATORY: Clear breath sounds bilaterally. No wheezes, rales, or rhonchi. C/V: Regular rate and rhythm. S1 and S2 auscultated, peripheral pulses 2+ and intact throughout chest pain is reproducible on palpation, located in the mid ribs just to the right of the sternum. Worse with stretching, motion of the right arm ABD: Abd is soft, nontender, nondistended EXT: Normal range of motion, no obvious deformity SKIN: No rashes or lesions observed on exposed skin. NEURO: Alert and oriented 4. Limitations: no limitations Course Vital Signs 06/26/22 06/26/22 07:31 09:12 Temperature 97.6 F 9739 F H Pulse Rate 101 H 80 Respiratory 18 16 Rate Blood Pressure 123/85 119/91 O2 Sat by Pulse 96 96 Oximetry Medical Decision Making - Medical Decision Making Based on the patient's presentation and physical exam, I'm concerned for what appears to be musculoskeletal etiology for the patient's current chest wall pain. Cannot definitively rule out cardiac etiology at this time. Therefore we will obtain cardiac labs considering his age. He was in agreement with this plan. He'll be symptomatically treated with Toradol, aspirin, 1 L fluid bolus. EKG and chest x-ray will be obtained. Vital signs within acceptable limits. Patient was in agreement this plan. EKG shows no signs of acute ischemia.Chest x-ray as interpreted by myself reveals no evidence of acute cardiopulmonary process, infiltrate. Laboratory studies are remarkable for an undetectable troponin. On reevaluation, patient's pain has resolved. We discussed his workup. Heart score is low at 3. We discussed the likely is chest wall pain from a muscle strain. I believe it is safe for him to be discharged home at this time as the symptoms have been ongoing for days with a negative cardiac workup. He was in agreement this plan. Strict return precautions were discussed. I instructed the patient to follow up with their PCP in the next 1-3 days. I explained that the patient should return to the emergency department if they experience any worsening symptoms. Strict return precautions were discussed with the patient. The patient expressed understanding of these instructions. I answered all questions that the patient had. The patient was discharged home in good condition with their prescriptions and follow up information. - Lab Data Result diagrams: 06/26/22 07:54 06/26/22 07:54 Lab Results 06/26/22 06/26/22 06/26/22 Range/Units 07:54 07:54 07:54 WBC 6.3 (3.8-10.6) k/uL RBC 4.51 (4.30-5.90) m/uL Hgb 14.1 (13.0-17.5) gm/dL Hct 41.7 (39.0-53.0) % MCV 92.6 (80.0-100.0) fL MCH 31.4 (25.0-35.0) pg MCHC 33.9 (31.0-37.0) g/dL RDW 13.8 (11.5-15.5) % Plt Count 334 (150-450) k/uL MPV 7.5 Neutrophils % (Manual) 51 % Lymphocytes % (Manual) 32 % Monocytes % (Manual) 11 % Eosinophils % (Manual) 6 % Neutrophils # (Manual) 3.21 (1.3-7.7) k/uL Lymphocytes # (Manual) 2.02 (1.0-4.8) k/uL Monocytes # (Manual) 0.69 (0-1.0) k/uL Eosinophils # (Manual) 0.38 (0-0.7) k/uL Nucleated RBCs 0 (0-0) /100 WBC Polychromasia Present PT 9.9 (9.0-12.0) sec INR 0.9 (<1.2) APTT 24.2 (22.0-30.0) sec Sodium 138 (137-145) mmol/L Potassium 4.2 (3.5-5.1) mmol/L Chloride 107 (98-107) mmol/L Carbon Dioxide 23 (22-30) mmol/L Anion Gap 8 mmol/L BUN 12 (9-20) mg/dL Creatinine 0.72 (0.66-1.25) mg/dL Est GFR (CKD-EPI)AfAm >90 (>60 ml/min/1.73 sqM) Est GFR (CKD-EPI)NonAf >90 (>60 ml/min/1.73 sqM) Glucose 106 H (74-99) mg/dL Calcium 8.9 (8.4-10.2) mg/dL Magnesium 1.8 (1.6-2.3) mg/dL Total Bilirubin 0.4 (0.2-1.3) mg/dL AST 31 (17-59) U/L ALT 34 (4-49) U/L Alkaline Phosphatase 93 (38-126) U/L Troponin I (0.000-0.034) ng/mL Total Protein 7.1 (6.3-8.2) g/dL Albumin 4.3 (3.5-5.0) g/dL 06/26/22 Range/Units 07:54 WBC (3.8-10.6) k/uL RBC (4.30-5.90) m/uL Hgb (13.0-17.5) gm/dL Hct (39.0-53.0) % MCV (80.0-100.0) fL MCH (25.0-35.0) pg MCHC (31.0-37.0) g/dL RDW (11.5-15.5) % Plt Count (150-450) k/uL MPV Neutrophils % (Manual) % Lymphocytes % (Manual) % Monocytes % (Manual) % Eosinophils % (Manual) % Neutrophils # (Manual) (1.3-7.7) k/uL Lymphocytes # (Manual) (1.0-4.8) k/uL Monocytes # (Manual) (0-1.0) k/uL Eosinophils # (Manual) (0-0.7) k/uL Nucleated RBCs (0-0) /100 WBC Polychromasia PT (9.0-12.0) sec INR (<1.2) APTT (22.0-30.0) sec Sodium (137-145) mmol/L Potassium (3.5-5.1) mmol/L Chloride (98-107) mmol/L Carbon Dioxide (22-30) mmol/L Anion Gap mmol/L BUN (9-20) mg/dL Creatinine (0.66-1.25) mg/dL Est GFR (CKD-EPI)AfAm (>60 ml/min/1.73 sqM) Est GFR (CKD-EPI)NonAf (>60 ml/min/1.73 sqM) Glucose (74-99) mg/dL Calcium (8.4-10.2) mg/dL Magnesium (1.6-2.3) mg/dL Total Bilirubin (0.2-1.3) mg/dL AST (17-59) U/L ALT (4-49) U/L Alkaline Phosphatase (38-126) U/L Troponin I <0.012 (0.000-0.034) ng/mL Total Protein (6.3-8.2) g/dL Albumin (3.5-5.0) g/dL - EKG Data -: EKG Interpreted by Me EKG Comments: 12-lead Electrocardiogram Interpretation Note EKG was reviewed and interpreted by myself. 12-lead ECG performed at 0740 is interpreted by me as revealing normal sinus rhythm at a rate of 81 beats per minute. [place] is normal. [place] interval is 153 ms, QRS duration is 96 ms, QTc is 400 ms.. There were no ST or T wave abnormalities to suggest myocardial i schemia or injury. R wave progression across the precordium was satisfactory. By my interpretation this EKG is non-diagnostic for acute ischemia. When compared with EKG from February 2016, no significant change. Disposition Clinical Impression: Chest wall pain, Muscle strain Disposition: HOME SELF-CARE Condition: Good Instructions (If sedation given, give patient instructions): Chest Wall Pain (ED) Is patient prescribed a controlled substance at d/c from ED?: No Referrals: Jay Jay Clark MD [Primary Care Provider] - 1-2 days Time of Disposition: 09:00
[2022-06-26 08:09] LABS: ALT 34 U/L (4-49); AST 31 U/L (17-59); African American GFR (CKD) >90 (>60 ml/min/1.73 sqM); Albumin 4.3 g/dL (3.5-5.0); Alkaline Phosphatase 93 U/L (38-126); Anion Gap 8 mmol/L; Blood Urea Nitrogen 12 mg/dL (9-20); Calcium 8.9 mg/dL (8.4-10.2); Carbon Dioxide 23 mmol/L (22-30); Chloride 107 mmol/L (98-107); Glucose 106 mg/dL (74-99); INR 0.9 (<1.2); Magnesium 1.8 mg/dL (1.6-2.3); Non-African American GFR(CKD) >90 (>60 ml/min/1.73 sqM); Partial Thromboplastin Time 24.2 sec (22.0-30.0); Potassium 4.2 mmol/L (3.5-5.1); Prothrombin Time 9.9 sec (9.0-12.0); Sodium 138 mmol/L (137-145); Total Bilirubin 0.4 mg/dL (0.2-1.3); Total Protein 7.1 g/dL (6.3-8.2)
[2022-06-26 08:10] LABS: HCT 41.7 % (39.0-53.0); HGB 14.1 gm/dL (13.0-17.5); MCH 31.4 pg (25.0-35.0); MCHC 33.9 g/dL (31.0-37.0); MCV 92.6 fL (80.0-100.0); Mean Platelet Volume 7.5; Platelet Count 334 k/uL (150-450); RBC 4.51 m/uL (4.30-5.90); RDW 13.8 % (11.5-15.5); WBC 6.3 k/uL (3.8-10.6)
[2022-06-26 08:37] LABS: Eosinophils # (M) 0.38 k/uL (0-0.7); Lymphocytes # (M) 2.02 k/uL (1.0-4.8); Monocytes # (M) 0.69 k/uL (0-1.0); Neutrophils # (M) 3.21 k/uL (1.3-7.7); Neutrophils % (M) 51 %; Nucleated Red Blood Cells 0 /100 WBC (0-0); Polychromasia Present; Total Cells Counted 100
--- NOTE | 2022-06-26 09:05 | XR ---
EXAMINATION TYPE: XR chest 2V DATE OF EXAM: 06/26/2022 8:08 AM COMPARISON: Chest radiographs from 10/05/2021 TECHNIQUE: XR chest 2V Frontal and lateral views of the chest. CLINICAL INDICATION:Male, 56 years old with history of Chest Pain; FINDINGS: Lungs/Pleura: There is flattening of the diaphragm with increased lucency of the lungs. No evidence o f pneumothorax, pleural effusion or focal consolidation. Pulmonary vascularity: Unremarkable. Heart/mediastinum: Cardiomediastinal silhouette is unremarkable. Musculoskeletal: No acute osseous pathology. IMPRESSION: 1. No acute cardiopulmonary disease process. 2. COPD changes.
[2022-06-26 09:13] VITALS: BP 119/91; PULSE 80; RESP 16; TEMP 9739
== END 2022-06-26 09:18 | disposition home or self-care (01) ==
LOC: EC 07:26
DX: S29.011A Strain of muscle and tendon of front wall of thorax, initial encounter (principal); R07.89 Other chest pain; E78.5 Hyperlipidemia, unspecified; K21.9 Gastro-esophageal reflux disease without esophagitis; M19.90 Unspecified osteoarthritis, unspecified site; E07.9 Disorder of thyroid, unspecified; F17.200 Nicotine dependence, unspecified, uncomplicated; Z79.890 Hormone replacement therapy; Z79.899 Other long term (current) drug therapy; X50.9XXA Other and unspecified overexertion or strenuous movements or postures, initial encounter
CPT/HCPCS: 99285; 36415; 93005; 80053; 83735; 84484; 85025; 85610; 85730; 71046; 96374; 96361; J1885

== ENCOUNTER 2022-12-08 10:06 | Emergency (ER) | payer OTHER, MEDICAID ==
[2022-12-08 10:15] VITALS: BP 127/88; PULSE 97; RESP 18; TEMP 98.4
--- NOTE | 2022-12-08 10:28 | ED ---
General Adult HPI - General Chief complaint: Psychiatric Symptoms Stated complaint: mental health Time Seen by Provider: 12/08/22 10:16 Source: patient, RN notes reviewed, old records reviewed Mode of arrival: ambulatory Limitations: no limitations - History of Present Illness Initial comments: Patient is a 57-year-old male who presents emergency Department on a court- ordered pickup petition. Pickup states patient has not been taking his medications, and a quarter petition for evaluation was ordered. It is dated from August 2022. Patient is compliant and cooperative at this time. States he has been taking his medications however he does not know the names as they are long and hard to say. States he has been compliant with meds. Has no acute complaints. Is cooperative. Denies any drug use, endorses occasional alcohol use. Denies any chest pain or shortness of breath. Denies any abdominal pain. Denies any suicidal or homicidal ideations, attempts, plans. Denies any visual or auditory hallucinations. He presents for further evaluation at this time. - Related Data Home Medications Medication Instructions Recorded Confirmed Levothyroxine Sodium [Synthroid] 50 mcg PO DAILY 10/08/20 06/05/22 Pantoprazole [Protonix] 40 mg PO DAILY 10/08/20 06/05/22 Albuterol Sulfate [Proair Hfa] 2 puff INHALATION RT-Q6H PRN 03/22/22 06/05/22 Ergocalciferol [Vitamin D2 (1250 1,250 mcg PO Q30D 03/22/22 06/05/22 Mcg = 38524 Iu)] Tamsulosin HCl [Flomax] 0.4 mg PO DAILY 03/22/22 06/05/22 Lovastatin [Mevacor] 20 mg PO DAILY 06/05/22 06/05/22 tadalafiL 20 mg PO Q48H PRN 06/05/22 06/05/22 Previous Rx's Medication Instructions Recorded Paliperidone IM [Invega Sustenna] 156 mg IM QMONTHLY #1 each 06/13/22 QUEtiapine [SEROquel] 100 mg PO HS PRN 30 Days tab 06/13/22 rOPINIRole HCL [Requip] 0.25 mg PO HS 30 Days tab 06/13/22 Allergies Allergy/AdvReac Type Severity Reaction Status Date / Time No Known Allergies Allergy Verified 12/08/22 10:15 Review of Systems ROS Statement: Those systems with pertinent positive or pertinent negative responses have been documented in the HPI. Review of Systems: CONST: Denies fever EYES: Denies blurry vision ENT: Denies nasal congestion C/V: Denies Chest pain RESP: Denies shortness of breath GI: Denies abdominal pain : Denies dysuria SKIN: Denies rash. MSK: Denies joint pain. NEURO: Denies headache PSYCH: Denies suicidal and homicidal ideations/plans/attempts. Denies visual or auditory hallucinations. ROS Other: All systems not noted in ROS Statement are negative. Past Medical History Past Medical History: GERD/Reflux, Hyperlipidemia, Hypertension, Osteoarthritis (OA), Thyroid Disorder History of Any Multi-Drug Resistant Organisms: None Reported Past Surgical History: No Surgical Hx Reported Additional Past Surgical History / Comment(s): Degloving injury left hand, repaired. Past Anesthesia/Blood Transfusion Reactions: No Reported Reaction Additional Past Anesthesia/Blood Transfusion Reaction / Comment(s): "I really, really don't like needles, I'm going to need something for anxiety." Past Psychological History: No Psychological Hx Reported Smoking Status: Current every day smoker Past Alcohol Use History: Daily Past Drug Use History: None Reported - Past Family History Mother Family Medical History: No Reported History General Exam - General Exam Comments Initial Comments: General: Appears in no acute distress. HEAD: Normal with no signs of head trauma. EYES: PERRLA, EOMI, conjunctiva normal, no discharge. ENT: Hearing grossly intact, normal oropharynx. RESPIRATORY: Clear breath sounds bilaterally. No wheezes, rales, or rhonchi. C/V: Regular rate and rhythm. S1 and S2 auscultated, no edema, peripheral pulses 2+ and intact throughout ABD: Abd is soft, nontender, nondistended EXT: Normal range of motion, no obvious deformity SKIN: No rashes or lesions observed on exposed skin. NEURO: Alert and oriented 4. Limitations: no limitations Course Vital Signs 12/08/22 10:10 Temperature 98.4 F Pulse Rate 97 Respiratory 18 Rate Blood Pressure 127/88 O2 Sat by Pulse 94 L Oximetry Medical Decision Making - Medical Decision Making Was pt. sent in by a medical professional or institution (, PA, SMELTER OPERATOR, urgent care, hospital, or detention...) When possible be specific @ -No Did you speak to anyone other than the patient for history (EMS, parent, family, police, friend...)? What history was obtained from this source @ -No Did you review nursing and triage notes (agree or disagree)? Why? @ -I reviewed and agree with nursing and triage notes Were old charts reviewed (outside hosp., previous admission, EMS record, old EKG, old radiological studies, urgent care reports/EKG's, detention records)? Report findings @ -No old charts were reviewed Differential Diagnosis (chest pain, altered mental status, abdominal pain women, abdominal pain men, vaginal bleeding, weakness, fever, dyspnea, syncope, headache, dizziness, GI bleed, back pain, seizure, CVA, palpatations, mental health, musculoskeletal)? @ -Differential Mental Health Depression, anxiety, bipolar, psychosis, schizophrenia, borderline personality, situational depression, adjustment disorder, behavioral disorder, brain tumor, malingering, substance abuse, encephalopathy, medication reaction, dementia, hypothyroidism, degenerative neurologic disorder, lupus.... This is not meant to be all-inclusive list EKG interpreted by me (3pts min.). @ -None done X-rays interpreted by me (1pt min.). @ -None done CT interpreted by me (1pt min.). @ -None done U/S interpreted by me (1pt. min.). @ -None done What testing was considered but not performed or refused? (CT, X-rays, U/S, labs)? Why? @ -None What meds were considered but not given or refused? Why? @ -None Did you discuss the management of the patient with other professionals (professionals i.e. , PA, SMELTER OPERATOR, lab, RT, psych nurse, social services aide, exterior work helper, teacher, freedom of information officer, case packer and sealer)? Give summary @ -Discussed with EPS to spoke with the patient's family and medical interpreter and patient is compliant with medications now. This is an old pickup order. Patient cleared for discharge home from psychiatric standpoint. Was smoking cessation discussed for >3mins.? @ -No Was critical care preformed (if so, how long)? @ -No Were there social determinants of health that impacted care today? How? (Homelessness, low income, unemployed, alcoholism, drug addiction, transportation, low edu. Level, literacy, decrease access to med. care, correction, rehab)? @ -No Was there de-escalation of care discussed even if they declined (Discuss DNR or withdrawal of care, Hospice)? DNR status @ -No What co-morbidities impacted this encounter? (DM, HTN, Smoking, COPD, CAD, Cancer, CVA, ARF, Chemo, Hep., AIDS, mental health diagnosis, sleep apnea, mo rbid obesity)? @ -None Was patient admitted / discharged? Hospital course, mention meds given and route, prescriptions, significant lab abnormalities, going to OR and other pertinent info. @ -Based on the patient's presentation and physical exam, patient presents for psychiatric evaluation and court-ordered pickup that appears to be old. Patient will be placed in green scrubs. BAT is slightly elevated to 0.02. He has no acute complaints at this time and is cooperative. We will have EPS evaluate the patient to see if this pickup is still needed. Vital signs within acceptable limits. He was in agreement this plan. UDS is pending. At this time, patient is medically cleared for evaluation by psychiatry. Disposition is pending psychiatric evaluation. Patient evaluated by EPS and he did reach out and contact the patient's psychiatric outpatient team. Patient has been compliant with medications. This is an old pickup order. Patient will be discharged home at this time with a safety plan. Patient was updated and he was in agreement with the plan. He was cleared for discharge home by psychiatry. Undiagnosed new problem with uncertain prognosis? @ -No Drug Therapy requiring intensive monitoring for toxicity (Heparin, Nitro, Insulin, Cardizem)? @ -No Were any procedures done? @ -No Diagnosis/symptom? @ -Encounter for psychiatric evaluation. Acute, or Chronic, or Acute on Chronic? @ -Acute Uncomplicated (without systemic symptoms) or Complicated (systemic symptoms)? @ -Uncomplicated Side effects of treatment? @ -No Exacerbation, Progression, or Severe Exacerbation? @ -No Poses a threat to life or bodily function? How? (Chest pain, [place], [place], pneumonia, PE, COPD, DKA, ARF, appy, cholecystitis, CVA, Diverticulitis, Homicidal, Suicidal, threat to staff... and all critical care pts) @ -No - Lab Data Lab Results 12/08/22 Range/Units 11:20 Urine Opiates Screen Not Detected (NotDetected) Ur Oxycodone Screen Not Detected (NotDetected) Urine Methadone Screen Not Detected (NotDetected) Ur Propoxyphene Screen Not Detected (NotDetected) Ur Barbiturates Screen Not Detected (NotDetected) U Tricyclic Antidepress Not Detected (NotDetected) Ur Phencyclidine Scrn Not Detected (NotDetected) Ur Amphetamines Screen Detected H (NotDetected) U Methamphetamines Scrn Detected H (NotDetected) U Benzodiazepines Scrn Not Detected (NotDetected) Urine Cocaine Screen Not Detected (NotDetected) U Marijuana (THC) Screen Not Detected (NotDetected) Disposition Clinical Impression: Encounter for psychiatric assessment Disposition: HOME SELF-CARE Condition: Good Additional Instructions: follow safety plan Is patient prescribed a controlled substance at d/c from ED?: No Referrals: Jay Jay Clark MD [Primary Care Provider] - 1-2 days Time of Disposition: 12:55
[2022-12-08 12:38] LABS: Amphetamine Screen,Urine Detected (NotDetected); Barbiturate Screen,Urine Not Detected (NotDetected); Benzodiazepines Screen,Urine Not Detected (NotDetected); Cocaine Screen,Urine Not Detected (NotDetected); Methadone Screen, Urine Not Detected (NotDetected); Opiate Screen,Urine Not Detected (NotDetected); Oxycodone Screen, Urine Not Detected (NotDetected); Phencyclidine Screen,Urine Not Detected (NotDetected); Tricyclic Antidepressant,Urine Not Detected (NotDetected); Urn Cannabinoid Scrn Not Detected (NotDetected)
== END 2022-12-08 13:04 | disposition home or self-care (01) ==
LOC: EC 10:06 → SUPCPDRO 10:06 → EC 13:04
DX: Z00.8 Encounter for other general examination (principal); I10 Essential (primary) hypertension; E78.5 Hyperlipidemia, unspecified; K21.9 Gastro-esophageal reflux disease without esophagitis; M19.90 Unspecified osteoarthritis, unspecified site; E07.9 Disorder of thyroid, unspecified; F17.200 Nicotine dependence, unspecified, uncomplicated; Z79.890 Hormone replacement therapy; Z79.899 Other long term (current) drug therapy
CPT/HCPCS: 80306; 82075; 99285

== ENCOUNTER 2023-01-23 21:47 | Emergency (ER) | payer MEDICAID, OTHER ==
[2023-01-23 21:55] VITALS: RESP 18; TEMP 97.3
[2023-01-23] MEDS ORDERED: LORazepam 2 MG/ML INJ IV STA (22:45)
--- NOTE | 2023-01-23 22:56 | ED ---
SOB HPI - General Chief Complaint: Shortness of Breath Stated Complaint: Difficulty Breathing Time Seen by Provider: 01/23/23 22:38 Source: patient Mode of arrival: ambulatory Limitations: no limitations - History of Present Illness Initial Comments: 57-year-old male presents with chief complaint of difficulty breathing. Patient reports that this evening around 8:30 he started feeling short of breath. States that he had chest tightness and burning with inhalation earlier but has since dissipated. Patient states "I feel like my head and my hands are very hot". No diaphoresis. No radiation of pain down the arm or up the neck. No cough, congestion, sore throat. Patient is a daily drinker, states that he had a pint of liquor and one canned drink earlier. He is a half pack per day smoker. States that he recently did methamphetamine on Monday. - Related Data Home Medications Medication Instructions Recorded Confirmed Levothyroxine Sodium [Synthroid] 50 mcg PO DAILY 10/08/20 06/05/22 Pantoprazole [Protonix] 40 mg PO DAILY 10/08/20 06/05/22 Albuterol Sulfate [Proair Hfa] 2 puff INHALATION RT-Q6H PRN 03/22/22 06/05/22 Ergocalciferol [Vitamin D2 (1250 1,250 mcg PO Q30D 03/22/22 06/05/22 Mcg = 82156 Iu)] Tamsulosin HCl [Flomax] 0.4 mg PO DAILY 03/22/22 06/05/22 Lovastatin [Mevacor] 20 mg PO DAILY 06/05/22 06/05/22 tadalafiL 20 mg PO Q48H PRN 06/05/22 06/05/22 Previous Rx's Medication Instructions Recorded Paliperidone IM [Invega Sustenna] 156 mg IM QMONTHLY #1 each 06/13/22 QUEtiapine [SEROquel] 100 mg PO HS PRN 30 Days tab 06/13/22 rOPINIRole HCL [Requip] 0.25 mg PO HS 30 Days tab 06/13/22 Allergies Allergy/AdvReac Type Severity Reaction Status Date / Time No Known Allergies Allergy Verified 01/23/23 21:55 Review of Systems ROS Statement: Those systems with pertinent positive or pertinent negative responses have been documented in the HPI. ROS Other: All systems not noted in ROS Statement are negative. Past Medical History Past Medical History: GERD/Reflux, Hyperlipidemia, Hypertension, Osteoarthritis (OA), Thyroid Disorder History of Any Multi-Drug Resistant Organisms: None Reported Past Surgical History: No Surgical Hx Reported Additional Past Surgical History / Comment(s): Degloving injury left hand, repaired. Past Anesthesia/Blood Transfusion Reactions: No Reported Reaction Additional Past Anesthesia/Blood Transfusion Reaction / Comment(s): "I really, really don't like needles, I'm going to need something for anxiety." Past Psychological History: Schizophrenia Smoking Status: Current every day smoker Past Alcohol Use History: Daily Past Drug Use History: None Reported - Past Family History Mother Family Medical History: No Reported History General Exam Limitations: no limitations General appearance: alert, in no apparent distress Head exam: Present: atraumatic, normocephalic, normal inspection Eye exam: Present: normal appearance Neck exam: Present: normal inspection, full ROM Respiratory exam: Present: normal lung sounds bilaterally. Absent: respiratory distress, wheezes, rales, rhonchi, stridor Cardiovascular Exam: Present: regular rate, normal rhythm, normal heart sounds. Absent: systolic murmur, diastolic murmur, rubs, gallop, clicks Extremities exam: Present: normal inspection. Absent: pedal edema Neurological exam: Present: alert, oriented X3, CN II-XII intact Psychiatric exam: Present: normal affect, normal mood Skin exam: Present: warm, dry, intact, normal color. Absent: rash Course Vital Signs 01/23/23 01/24/23 01/24/23 21:49 01:01 01:50 Temperature 97.3 F L Pulse Rate 103 H 68 82 Respiratory 18 18 18 Rate Blood Pressure 137/92 136/99 138/101 O2 Sat by Pulse 98 97 97 Oximetry Medical Decision Making - Medical Decision Making Was pt. sent in by a medical professional or institution (, PA, WHEEL POLISHER, urgent care, hospital, or jail...) When possible be specific @ -No Did you speak to anyone other than the patient for history (EMS, parent, family, police, friend...)? What history was obtained from this source @ -No Did you review nursing and triage notes (agree or disagree)? Why? @ -I reviewed and agree with nursing and triage notes Were old charts reviewed (outside hosp., previous admission, EMS record, old EKG, old radiological studies, urgent care reports/EKG's, jail records)? Report findings @ -No old charts were reviewed Differential Diagnosis (chest pain, altered mental status, abdominal pain women, abdominal pain men, vaginal bleeding, weakness, fever, dyspnea, syncope, headache, dizziness, GI bleed, back pain, seizure, CVA, palpatations, mental health, musculoskeletal)? @ -MDM Differential Dyspnea: Coronary syndrome, arrhythmia, tamponade, asthma, COPD, pulmonary embolism, pneumonia, pneumothorax, pulmonary effusion, anaphylaxis, diabetic ketoacidosis, flailed chest, pulmonary contusion, diaphragmatic rupture, anemia, neuromuscular this is not meant to be an all-inclusive list. EKG interpreted by me (3pts min.). @ -As above X-rays interpreted by me (1pt min.). @ -Chest x-ray shows no acute process CT interpreted by me (1pt min.). @ -None done U/S interpreted by me (1pt. min.). @ -None done What testing was considered but not performed or refused? (CT, X-rays, U/S, labs)? Why? @ -None What meds were considered but not given or refused? Why? @ -None Did you discuss the management of the patient with other professionals (professionals i.e. , PA, WHEEL POLISHER, lab, RT, psych nurse, forensic social worker, electronic controls repairer supervisor, teacher, trust officer, hospice case manager)? Give summary @ -No Was smoking cessation discussed for >3mins.? @ -No Was critical care preformed (if so, how long)? @ -No Were there social determinants of health that impacted care today? How? (Homelessness, low income, unemployed, alcoholism, drug addiction, transportation, low edu. Level, literacy, decrease access to med. care, fpc, rehab)? @ -No Was there de-escalation of care discussed even if they declined (Discuss DNR or withdrawal of care, Hospice)? DNR status @ -No What co-morbidities impacted this encounter? (DM, HTN, Smoking, COPD, CAD, Cancer, CVA, ARF, Chemo, Hep., AIDS, mental health diagnosis, sleep apnea, morbid obesity)? @ -None Was patient admitted / discharged? Hospital course, mention meds given and route, prescriptions, significant lab abnormalities, going to OR and other pertinent info. @ -57-year-old male presenting with chief complaint of dyspnea that started this evening. He states that he has some burning in the chest with inhalation. He is a half pack per day smoker and did drink 1 pint of liquor today. Also admits to recently doing methamphetamine. Physical examination is unremarkable, heart and lungs are clear to auscultation. Lab work shows no leukocytosis or anemia. Sodium 136 and carbon dioxide is 21. Negative troponin. Chest x-ray shows no acute process and EKG shows no acute findings. Discomfort may be due to costochondral inflammation in combination with tobacco and substance abuse. His heart score is 3. Patient is educated on today's findings on supportive management at home. Follow-up with PCP. Report back to ER with any new or worsening symptoms. Discussed return parameters and answered all questions. Patient conveyed verbal understanding and agreed to the plan. I discussed this case in detail with my attending Dr. Davis Undiagnosed new problem with uncertain prognosis? @ -No Drug Therapy requiring intensive monitoring for toxicity (Heparin, Nitro, Insulin, Cardizem)? @ -No Were any procedures done? @ -No Diagnosis/symptom? @ -Chest wall pain and methamphetamine use Acute, or Chronic, or Acute on Chronic? @ -Acute Uncomplicated (without systemic symptoms) or Complicated (systemic symptoms)? @ -Uncomplicated Side effects of treatment? @ -No Exacerbation, Progression, or Severe Exacerbation? @ -No Poses a threat to life or bodily function? How? (Chest pain, [place], [place], pneumonia, PE, COPD, DKA, ARF, appy, cholecystitis, CVA, Diverticulitis, Homicidal, Suicidal, threat to staff... and all critical care pts) @ -Low likelihood - Lab Data Result diagrams: 01/23/23 22:35 01/23/23 22:35 Lab Results 01/23/23 01/23/23 01/23/23 Range/Units 22:35 22:35 22:35 WBC 8.6 (3.8-10.6) k/uL RBC 4.50 (4.30-5.90) m/uL Hgb 14.4 (13.0-17.5) gm/dL Hct 43.1 (39.0-53.0) % MCV 95.8 (80.0-100.0) fL MCH 31.9 (25.0-35.0) pg MCHC 33.3 (31.0-37.0) g/dL RDW 13.0 (11.5-15.5) % Plt Count 379 (150-450) k/uL MPV 7.2 Neutrophils % 51 % Lymphocytes % 31 % Monocytes % 7 % Eosinophils % 7 % Basophils % 1 % Neutrophils # 4.4 (1.3-7.7) k/uL Lymphocytes # 2.7 (1.0-4.8) k/uL Monocytes # 0.6 (0-1.0) k/uL Eosinophils # 0.6 (0-0.7) k/uL Basophils # 0.1 (0-0.2) k/uL PT 10.6 (9.0-12.0) sec INR 1.0 (<1.2) APTT 24.0 (22.0-30.0) sec Sodium 136 L (137-145) mmol/L Potassium 4.0 (3.5-5.1) mmol/L Chloride 106 (98-107) mmol/L Carbon Dioxide 21 L (22-30) mmol/L Anion Gap 9 mmol/L BUN 15 (9-20) mg/dL Creatinine 1.06 (0.66-1.25) mg/dL Est GFR (CKD-EPI)AfAm >90 (>60 ml/min/1.73 sqM) Est GFR (CKD-EPI)NonAf 78 (>60 ml/min/1.73 sqM) Glucose 98 (74-99) mg/dL Plasma Lactic Acid Stefan (0.7-2.0) mmol/L Calcium 9.3 (8.4-10.2) mg/dL Magnesium 1.7 (1.6-2.3) mg/dL Total Bilirubin 0.5 (0.2-1.3) mg/dL AST 38 (17-59) U/L ALT 47 (4-49) U/L Alkaline Phosphatase 114 (38-126) U/L Troponin I (0.000-0.034) ng/mL Total Protein 7.2 (6.3-8.2) g/dL Albumin 4.4 (3.5-5.0) g/dL 01/23/23 01/23/23 Range/Units 22:35 22:35 WBC (3.8-10.6) k/uL RBC (4.30-5.90) m/uL Hgb (13.0-17.5) gm/dL Hct (39.0-53.0) % MCV (80.0-100.0) fL MCH (25.0-35.0) pg MCHC (31.0-37.0) g/dL RDW (11.5-15.5) % Plt Count (150-450) k/uL MPV Neutrophils % % Lymphocytes % % Monocytes % % Eosinophils % % Basophils % % Neutrophils # (1.3-7.7) k/uL Lymphocytes # (1.0-4.8) k/uL Monocytes # (0-1.0) k/uL Eosinophils # (0-0.7) k/uL Basophils # (0-0.2) k/uL PT (9.0-12.0) sec INR (<1.2) APTT (22.0-30.0) sec Sodium (137-145) mmol/L Potassium (3.5-5.1) mmol/L Chloride (98-107) mmol/L Carbon Dioxide (22-30) mmol/L Anion Gap mmol/L BUN (9-20) mg/dL Creatinine (0.66-1.25) mg/dL Est GFR (CKD-EPI)AfAm (>60 ml/min/1.73 sqM) Est GFR (CKD-EPI)NonAf (>60 ml/min/1.73 sqM) Glucose (74-99) mg/dL Plasma Lactic Acid Stefan 1.5 (0.7-2.0) mmol/L Calcium (8.4-10.2) mg/dL Magnesium (1.6-2.3) mg/dL Total Bilirubin (0.2-1.3) mg/dL AST (17-59) U/L ALT (4-49) U/L Alkaline Phosphatase (38-126) U/L Troponin I <0.012 (0.000-0.034) ng/mL Total Protein (6.3-8.2) g/dL Albumin (3.5-5.0) g/dL - EKG Data -: EKG Interpreted by [facility] Comments: Sinus rhythm ventricular rate 91. ND interval 158. QRS 97. QT 364. QTC 413. No ST deviation or T wave inversion. Disposition Clinical Impression: Methamphetamine abuse, Chest wall pain Disposition: HOME SELF-CARE Condition: Good Instructions (If sedation given, give patient instructions): Chest Pain (ED), Methamphetamine Abuse (ED) Additional Instructions: Follow-up with PCP. Report back to ER with any new or worsening symptoms. Is patient prescribed a controlled substance at d/c from ED?: No Referrals: Nonstaff,Physician [REFERRING] - 1-2 days Time of Disposition: 01:23
[2023-01-23 22:59] LABS: Basophils # (A) 0.1 k/uL (0-0.2); Basophils % (A) 1 %; Eosinophils # (A) 0.6 k/uL (0-0.7); Eosinophils % (A) 7 %; HCT 43.1 % (39.0-53.0); HGB 14.4 gm/dL (13.0-17.5); Lymphocytes # (A) 2.7 k/uL (1.0-4.8); Lymphocytes % (A) 31 %; MCH 31.9 pg (25.0-35.0); MCHC 33.3 g/dL (31.0-37.0); MCV 95.8 fL (80.0-100.0); Mean Platelet Volume 7.2; Monocytes # (A) 0.6 k/uL (0-1.0); Monocytes % (A) 7 %; Neutrophils # (A) 4.4 k/uL (1.3-7.7); Neutrophils % (A) 51 %; Platelet Count 379 k/uL (150-450); WBC 8.6 k/uL (3.8-10.6)
[2023-01-23 23:10] LABS: Prothrombin Time 10.6 sec (9.0-12.0)
--- NOTE | 2023-01-24 00:19 | XR ---
EXAM: XR Chest, 2 Views CLINICAL HISTORY: ITS.REASON XR Reason: difficulty breathing TECHNIQUE: Frontal and lateral views of the chest. COMPARISON: No relevant prior studies available. FINDINGS: Lungs: Unremarkable. No consolidation. Pleural space: Unremarkable. No pneumothorax. Heart: Unremarkable. No cardiomegaly. Mediastinum: Unremarkable. Bones/joints: Unremarkable. IMPRESSION: Normal chest x-rays.
[2023-01-24 00:28] LABS: ALT 47 U/L (4-49); AST 38 U/L (17-59); African American GFR (CKD) >90 (>60 ml/min/1.73 sqM); Albumin 4.4 g/dL (3.5-5.0); Alkaline Phosphatase 114 U/L (38-126); Anion Gap 9 mmol/L; Blood Urea Nitrogen 15 mg/dL (9-20); Calcium 9.3 mg/dL (8.4-10.2); Carbon Dioxide 21 mmol/L (22-30); Chloride 106 mmol/L (98-107); Glucose 98 mg/dL (74-99); Magnesium 1.7 mg/dL (1.6-2.3); Non-African American GFR(CKD) 78 (>60 ml/min/1.73 sqM); Sodium 136 mmol/L (137-145); Total Bilirubin 0.5 mg/dL (0.2-1.3); Total Protein 7.2 g/dL (6.3-8.2)
[2023-01-24] MEDS ORDERED: ASPIRIN 81 MG PO STA (00:55)
[2023-01-24 01:51] VITALS: BP 138/101; PULSE 82
== END 2023-01-24 01:51 | disposition home or self-care (01) ==
LOC: EC 21:47
DX: F15.10 Other stimulant abuse, uncomplicated (principal); R07.89 Other chest pain; I10 Essential (primary) hypertension; E07.9 Disorder of thyroid, unspecified; E78.5 Hyperlipidemia, unspecified; K21.9 Gastro-esophageal reflux disease without esophagitis; F17.200 Nicotine dependence, unspecified, uncomplicated; Z79.890 Hormone replacement therapy; Z79.899 Other long term (current) drug therapy
CPT/HCPCS: 93005; 80053; 83605; 83735; 84484; 85025; 85610; 85730; 99285; 96374; J2060; 36415; 71046

== ENCOUNTER 2023-05-16 17:19 | Emergency (ER) | payer OTHER ==
--- NOTE | 2023-05-16 19:24 | ED ---
Psych HPI - General Source: patient, RN notes reviewed Mode of arrival: ambulatory Limitations: no limitations <Joshua Cleaning - Last Filed: 05/16/23 22:40> <Durga Botello - Last Filed: 05/17/23 20:00> - General Chief Complaint: Psychiatric Symptoms Stated Complaint: petition Time Seen by Provider: 05/16/23 19:22 - History of Present Illness Initial Comments: 57-year-old male presents emergency Department with chief complaint of needing psychiatric evaluation. Patient states that he is being petitioned by his mother so he felt that he should just get it out. He is not any psychiatric medications. He denies any physical complaints has been suicidal or homicidal. (Joshua Cleaning) - Related Data Home Medications Medication Instructions Recorded Confirmed Levothyroxine Sodium [Synthroid] 50 mcg PO DAILY 10/08/20 06/05/22 Pantoprazole [Protonix] 40 mg PO DAILY 10/08/20 06/05/22 Albuterol Sulfate [Proair Hfa] 2 puff INHALATION RT-Q6H PRN 03/22/22 06/05/22 Ergocalciferol [Vitamin D2 (1250 1,250 mcg PO Q30D 03/22/22 06/05/22 Mcg = 68877 Iu)] Tamsulosin HCl [Flomax] 0.4 mg PO DAILY 03/22/22 06/05/22 Lovastatin [Mevacor] 20 mg PO DAILY 06/05/22 06/05/22 tadalafiL 20 mg PO Q48H PRN 06/05/22 06/05/22 Atorvastatin [Lipitor] 40 mg PO DAILY 05/17/23 05/17/23 Cholecalciferol [Vitamin D3 (25 25 mcg PO DAILY 05/17/23 05/17/23 Mcg = 1000 Iu)] Levothyroxine Sodium [Synthroid] 25 mcg PO DAILY 05/17/23 05/17/23 Mv-Min/Folic/K1/Lycopen/Lutein 1 tab PO DAILY 05/17/23 05/17/23 [Centrum Silver Men Tablet] Pantoprazole [Protonix] 40 mg PO DAILY 05/17/23 05/17/23 Tamsulosin [Flomax] 0.4 mg PO DAILY 05/17/23 05/17/23 tadalafiL 20 mg PO Q48H PRN 05/17/23 05/17/23 Previous Rx's Medication Instructions Recorded Paliperidone IM [Invega Sustenna] 156 mg IM QMONTHLY #1 each 06/13/22 QUEtiapine [SEROquel] 100 mg PO HS PRN 30 Days tab 06/13/22 rOPINIRole HCL [Requip] 0.25 mg PO HS 30 Days tab 06/13/22 Allergies Allergy/AdvReac Type Severity Reaction Status Date / Time No Known Allergies Allergy Verified 05/17/23 11:48 Review of Systems ROS Other: All systems not noted in ROS Statement are negative. <Joshua Cleaning - Last Filed: 05/16/23 22:40> ROS Other: All systems not noted in ROS Statement are negative. <Durga Botello - Last Filed: 05/17/23 20:00> ROS Statement: Those systems with pertinent positive or pertinent negative responses have been documented in the HPI. Past Medical History Past Medical History: No Reported History Past Surgical History: Orthopedic Surgery Past Psychological History: Schizophrenia <Joshua Cleaning - Last Filed: 05/16/23 22:40> - Past Family History Mother Family Medical History: No Reported History <Durga Botello - Last Filed: 05/17/23 20:00> General Exam Limitations: no limitations General appearance: alert, in no apparent distress Head exam: Present: atraumatic, normocephalic, normal inspection Eye exam: Present: normal appearance, PERRL, EOMI. Absent: scleral icterus, conjunctival injection, periorbital swelling ENT exam: Present: normal exam, normal oropharynx, mucous membranes moist Neck exam: Present: normal inspection, full ROM. Absent: tenderness, meningismus, lymphadenopathy Respiratory exam: Present: normal lung sounds bilaterally. Absent: respiratory distress, wheezes, rales, rhonchi, stridor Cardiovascular Exam: Present: normal rhythm, tachycardia, normal heart sounds. Absent: systolic murmur, diastolic murmur, rubs, gallop, clicks GI/Abdominal exam: Present: soft, normal bowel sounds. Absent: distended, tenderness, guarding, rebound, rigid Neurological exam: Present: alert Psychiatric exam: Present: flat affect Skin exam: Present: warm, dry, intact, normal color. Absent: rash <Joshua Cleaning - Last Filed: 05/16/23 22:40> - General Exam Comments Initial Comments: Visual Physical Exam Vital signs reviewed General: Well-appearing, nontoxic, no acute distress. Head: Normocephalic, atraumatic Eyes: PERRLA, EOMI ENT: Airway patent Chest: Nonlabored breathing Skin: No visual rash, normal skin tone Neuro: Alert and oriented 3 Musculoskeletal: No gross abnormalities (Joshua Cleaning) Course Vital Signs 05/16/23 05/16/23 05/17/23 17:44 22:57 12:26 Temperature 998 F H 99.8 F H Pulse Rate 110 H 74 Respiratory 20 18 Rate Blood Pressure 163/93 129/88 O2 Sat by Pulse 98 96 Oximetry Medical Decision Making <Joshua Cleaning - Last Filed: 05/16/23 22:40> <Durga Botello - Last Filed: 05/17/23 20:00> - Medical Decision Making I completed the quick note portion of this chart signed Joshua Cleaning PA-C (Joshua Cleaning) Was pt. sent in by a medical professional or institution ([employer], BOX ATTACHER, urgent care, hospital, or long term...) When possible be specific @ -No Did you speak to anyone other than the patient for history (EMS, parent, family, police, friend...)? What history was obtained from this source @ -No Did you review nursing and triage notes (agree or disagree)? Why? @ -I reviewed and agree with nursing and triage notes Were old charts reviewed (outside hosp., previous admission, EMS record, old EKG, old radiological studies, urgent care reports/EKG's, long term records)? Report findings @ -No old charts were reviewed Differential Diagnosis (chest pain, altered mental status, abdominal pain women, abdominal pain men, vaginal bleeding, weakness, fever, dyspnea, syncope, headache, dizziness, GI bleed, back pain, seizure, CVA, palpatations, mental health, musculoskeletal)? @ -Differential Mental Health Depression, anxiety, bipolar, psychosis, schizophrenia, borderline personality, situational depression, adjustment disorder, behavioral disorder, brain tumor, malingering, substance abuse, encephalopathy, medication reaction, dementia, hypothyroidism, degenerative neurologic disorder, lupus.... This is not meant to be all-inclusive list EKG interpreted by me (3pts min.). @ -As above X-rays interpreted by me (1pt min.). @ -None done CT interpreted by me (1pt min.). @ -None done U/S interpreted by me (1pt. min.). @ -None done What testing was considered but not performed or refused? (CT, X-rays, U/S, labs)? Why? @ -None What meds were considered but not given or refused? Why? @ -None Did you discuss the management of the patient with other professionals (professionals i.e. DrMyra, PA, BOX ATTACHER, lab, RT, psych nurse, geriatric social worker, real estate director, teacher, tactical debriefer officer, immigration case worker)? Give summary @ -No Was smoking cessation discussed for >3mins.? @ -No Was critical care preformed (if so, how long)? @ -No Were there social determinants of health that impacted care today? How? (Homelessness, low income, unemployed, alcoholism, drug addiction, transportation, low edu. Level, literacy, decrease access to med. care, [facility], rehab)? @ -No Was there de-escalation of care discussed even if they declined (Discuss DNR or withdrawal of care, Hospice)? DNR status @ -No What co-morbidities impacted this encounter? (DM, HTN, Smoking, COPD, CAD, Cancer, CVA, ARF, Chemo, Hep., AIDS, mental health diagnosis, sleep apnea, morbid obesity)? @ -Schizophrenia Was patient admitted / discharged? Hospital course, mention meds given and route, prescriptions, significant lab abnormalities, going to OR and other pertinent info. @ -Patient had been medically cleared and was awaiting EPS evaluation. He had been petitioned for psychiatric evaluation. He was evaluated by EPS and felt to be safe for discharge. I did evaluate this patient myself and agree with assessment. The patient has no complaints. He will be discharged from the emergency Department with outpatient follow-up. Undiagnosed new problem with uncertain prognosis? @ -No Drug Therapy requiring intensive monitoring for toxicity (Heparin, Nitro, Insulin, Cardizem)? @ -No Were any procedures done? @ -No Diagnosis/symptom? @Schizophrenia Acute, or Chronic, or Acute on Chronic? @ -Acute on chronic Uncomplicated (without systemic symptoms) or Complicated (systemic symptoms)? @ -default Side effects of treatment? @ -No Exacerbation, Progression, or Severe Exacerbation? @ -No Poses a threat to life or bodily function? How? (Chest pain, [place], [place], pneumonia, PE, COPD, DKA, ARF, appy, cholecystitis, CVA, Diverticulitis, Homicidal, Suicidal, threat to staff... and all critical care pts) @ -No (Durga Botello) Disposition <Joshua Cleaning - Last Filed: 05/16/23 22:40> Is patient prescribed a controlled substance at d/c from ED?: No Time of Disposition: 19:59 <Durga Botello - Last Filed: 05/17/23 20:00> Clinical Impression: Schizophrenia Disposition: HOME SELF-CARE Condition: Fair Instructions (If sedation given, give patient instructions): Schizophrenia (ED) Referrals: Jay Jay Clark MD [Primary Care Provider] - 1-2 days
[2023-05-17] MEDS ORDERED: IBUPROFEN 600 MG TAB PO STA (00:35)
[2023-05-17 12:47] VITALS: RESP 18
[2023-05-17] MEDS ORDERED: IBUPROFEN 600 MG TAB PO PRN (15:56)
[2023-05-17 20:40] VITALS: BP 143/90; PULSE 85; TEMP 98.3
== END 2023-05-17 20:39 | disposition home or self-care (01) ==
LOC: EC 17:19 → MERGE 17:19 → EC 05-17 20:39
DX: F20.9 Schizophrenia, unspecified (principal)
CPT/HCPCS: 82075; 99285

== ENCOUNTER 2023-08-07 19:58 | Inpatient (IN) | payer MEDICAID, OTHER ==
--- NOTE | 2023-08-07 21:03 | ED ---
General Adult HPI - General Source: patient, EMS Mode of arrival: EMS Limitations: no limitations <Jeferson Louise - Last Filed: 08/07/23 21:02> <Durga Botello - Last Filed: 08/08/23 13:48> - General Chief complaint: Psychiatric Symptoms Stated complaint: Pickup order Time Seen by Provider: 08/07/23 20:08 - History of Present Illness Initial comments: Dictation was produced using [employer] dictation software. please excuse any grammatical, word or spelling errors. Chief Complaint: 57-year-old male brought to the emergency department for mental health evaluation History of Present Illness: Patient 57-year-old male he is a alcoholic. According to petition patient was brought to the emergency department for mental health evaluation. Apparently he was threatening to kill his family. He states that his "mother is a bitch." Patient understands that his mother was the 1 who called the police. Patient denies any such claims. Denies any medical complaints. Denies any suicidal homicidal ideation. No visual or auditory hallucinations. The ROS documented in this emergency department record has been reviewed and confirmed by me. Those systems with pertinent positive or negative responses have been documented in the HPI. All other systems are other negative and/or noncontributory. (Jeferson Louise) - Related Data Home Medications Medication Instructions Recorded Confirmed Levothyroxine Sodium [Synthroid] 50 mcg PO DAILY 10/08/20 06/05/22 Pantoprazole [Protonix] 40 mg PO DAILY 10/08/20 06/05/22 Albuterol Sulfate [Proair Hfa] 2 puff INHALATION RT-Q6H PRN 03/22/22 06/05/22 Ergocalciferol [Vitamin D2 (1250 1,250 mcg PO Q30D 03/22/22 06/05/22 Mcg = 22107 Iu)] Tamsulosin HCl [Flomax] 0.4 mg PO DAILY 03/22/22 06/05/22 Lovastatin [Mevacor] 20 mg PO DAILY 06/05/22 06/05/22 tadalafiL 20 mg PO Q48H PRN 06/05/22 06/05/22 Atorvastatin [Lipitor] 40 mg PO DAILY 05/17/23 05/17/23 Cholecalciferol [Vitamin D3 (25 25 mcg PO DAILY 05/17/23 05/17/23 Mcg = 1000 Iu)] Levothyroxine Sodium [Synthroid] 25 mcg PO DAILY 05/17/23 05/17/23 Mv-Min/Folic/K1/Lycopen/Lutein 1 tab PO DAILY 05/17/23 05/17/23 [Centrum Silver Men Tablet] Pantoprazole [Protonix] 40 mg PO DAILY 05/17/23 05/17/23 Tamsulosin [Flomax] 0.4 mg PO DAILY 05/17/23 05/17/23 tadalafiL 20 mg PO Q48H PRN 05/17/23 05/17/23 Previous Rx's Medication Instructions Recorded Paliperidone IM [Invega Sustenna] 156 mg IM QMONTHLY #1 each 06/13/22 QUEtiapine [SEROquel] 100 mg PO HS PRN 30 Days tab 06/13/22 rOPINIRole HCL [Requip] 0.25 mg PO HS 30 Days tab 06/13/22 Allergies Allergy/AdvReac Type Severity Reaction Status Date / Time No Known Allergies Allergy Verified 05/17/23 11:48 Review of Systems ROS Other: All systems not noted in ROS Statement are negative. <Jeferson Louise - Last Filed: 08/07/23 21:02> ROS Other: All systems not noted in ROS Statement are negative. <Durga Botello - Last Filed: 08/08/23 13:48> ROS Statement: Those systems with pertinent positive or pertinent negative responses have been documented in the HPI. Past Medical History Past Medical History: GERD/Reflux, Hyperlipidemia, Hypertension, No Reported History, Osteoarthritis (OA), Thyroid Disorder History of Any Multi-Drug Resistant Organisms: None Reported Past Surgical History: No Surgical Hx Reported, Orthopedic Surgery Additional Past Surgical History / Comment(s): Degloving injury left hand, repaired. Past Anesthesia/Blood Transfusion Reactions: No Reported Reaction Additional Past Anesthesia/Blood Transfusion Reaction / Comment(s): "I really, really don't like needles, I'm going to need something for anxiety." Past Psychological History: Schizophrenia Smoking Status: Current every day smoker Past Alcohol Use History: Daily Past Drug Use History: None Reported - Past Family History Mother Family Medical History: No Reported History <Jeferson Louise - Last Filed: 08/07/23 21:02> General Exam Limitations: no limitations <Jeferson Louise - Last Filed: 08/07/23 21:02> - General Exam Comments Initial Comments: General: Well-appearing, nontoxic, no acute distress. Head: Normocephalic, atraumatic Eyes: PERRLA, EOMI ENT: Airway patent Chest: Nonlabored breathing Skin: No visual rash, normal skin tone Neuro: Alert and oriented 3 Musculoskeletal: No gross abnormalities (Jeferson Louise) Course Vital Signs 08/07/23 08/08/23 20:01 04:23 Temperature 96.4 F L 97.5 F L Pulse Rate 164 H 99 Respiratory 19 17 Rate Blood Pressure 159/105 108/73 O2 Sat by Pulse 98 94 L Oximetry Medical Decision Making <Jeferson Louise - Last Filed: 08/07/23 21:02> - Lab Data Result diagrams: 08/08/23 07:10 08/08/23 07:10 <Durga Botello - Last Filed: 08/08/23 13:48> - Medical Decision Making Was pt. sent in by a medical professional or institution (, PA, ACID PAINTER, urgent care, hospital, or retirement...) When possible be specific @ -Petition by mother brought in by law enforcement Did you speak to anyone other than the patient for history (EMS, parent, family, police, friend...)? What history was obtained from this source @ -No Did you review nursing and triage notes (agree or disagree)? Why? @ -I reviewed and agree with nursing and triage notes Were old charts reviewed (outside hosp., previous admission, EMS record, old EKG, old radiological studies, urgent care reports/EKG's, retirement records)? Report findings @ -Petition was reviewed Differential Diagnosis (chest pain, altered mental status, abdominal pain women, abdominal pain men, vaginal bleeding, musculoskeletal, weakness, fever, dyspnea, syncope, headache, dizziness, GI bleed, back pain, seizure, CVA, palpatations, mental health)? @ -Differential Mental Health: Depression, anxiety, bipolar, psychosis, schizophrenia, borderline personality, situational depression, adjustment disorder, behavioral disorder, brain tumor, malingering, substance abuse, encephalopathy, medication reaction, dementia, hypothyroidism, degenerative neurologic disorder, lupus.... This is not meant to be all-inclusive list EKG interpreted by me (3pts min.). @ -None done X-rays interpreted by me (1pt min.). @ -None done CT interpreted by me (1pt min.). @ -None done U/S interpreted by me (1pt. min.). @ -None done What testing was considered but not performed or refused? (CT, X-rays, U/S, labs)? Why? @ -None What meds were considered but not given or refused? Why? @ -None Did you discuss the management of the patient with other professionals (professionals i.e. , PA, ACID PAINTER, lab, RT, psych nurse, social media designer, supervisor litharge, teacher, ordnance officer, pillowcase cutter)? Give summary @ -No Was smoking cessation discussed for >3mins.? @ -No Was critical care preformed (if so, how long)? @ -No Were there social determinants of health that impacted care today? How? ( Homelessness, low income, unemployed, alcoholism, drug addiction, transportation, low edu. Level, literacy, decrease access to med. care, longterm, rehab)? @ -No Was there de-escalation of care discussed even if they declined (Discuss DNR or withdrawal of care, Hospice)? DNR status @ -No What co-morbidities impacted this encounter? (DM, HTN, Smoking, COPD, CAD, Cancer, CVA, ARF, Chemo, Hep., AIDS, mental health diagnosis, sleep apnea, morbid obesity)? @ -None Was patient admitted / discharged? Hospital course, mention meds given and route, prescriptions, significant lab abnormalities, going to OR and other pertinent info. @ -57-year-old male presents to the emergency department for mental health evaluation. According to petition he was brought here for making homicidal comments. Vital signs stable. Physical examination is benign. Patient has some alcohol on his breath alcohol test. Pending sobriety for EPS evaluation. Undiagnosed new problem with uncertain prognosis? @ -No Drug Therapy requiring intensive monitoring for toxicity (Heparin, Nitro, Insulin, Cardizem)? @ -No Were any procedures done? @ -No Diagnosis/symptom? Acute, or Chronic, or Acute on Chronic? Uncomplicated (without systemic symptoms) or Complicated (systemic symptoms)? @ -Mental health evaluation Side effects of treatment? @ -No Exacerbation, Progression, or Severe Exacerbation? @ -No Poses a threat to life or bodily function? How? (Chest pain, USA, ME, pneumonia, PE, COPD, DKA, ARF, appy, cholecystitis, CVA, Diverticulitis, Homicidal, Suicidal, threat to staff... and all critical care pts) @ -yes (Jeferson Louise) Patient evaluated by EPS and will be admitted to this institution. I completed a clinical certification of this patient after evaluation. (Durga Botello) - Lab Data Lab Results 08/08/23 08/08/23 08/08/23 Range/Units 07:04 07:04 07:10 WBC 6.8 (3.8-10.6) k/uL RBC 4.55 (4.30-5.90) m/uL Hgb 14.5 (13.0-17.5) gm/dL Hct 42.4 (39.0-53.0) % MCV 93.1 (80.0-100.0) fL MCH 31.8 (25.0-35.0) pg MCHC 34.1 (31.0-37.0) g/dL RDW 12.8 (11.5-15.5) % Plt Count 384 (150-450) k/uL MPV 7.3 Neutrophils % 37 % Lymphocytes % 44 % Monocytes % 8 % Eosinophils % 7 % Basophils % 1 % Neutrophils # 2.5 (1.3-7.7) k/uL Lymphocytes # 3.0 (1.0-4.8) k/uL Monocytes # 0.6 (0-1.0) k/uL Eosinophils # 0.5 (0-0.7) k/uL Basophils # 0.1 (0-0.2) k/uL Sodium (137-145) mmol/L Potassium (3.5-5.1) mmol/L Chloride (98-107) mmol/L Carbon Dioxide (22-30) mmol/L Anion Gap mmol/L BUN (9-20) mg/dL Creatinine (0.66-1.25) mg/dL Est GFR (CKD-EPI)AfAm (>60 ml/min/1.73 sqM) Est GFR (CKD-EPI)NonAf (>60 ml/min/1.73 sqM) Glucose (74-99) mg/dL Calcium (8.4-10.2) mg/dL Total Bilirubin (0.2-1.3) mg/dL AST (17-59) U/L ALT (4-49) U/L Alkaline Phosphatase (38-126) U/L Total Protein (6.3-8.2) g/dL Albumin (3.5-5.0) g/dL TSH (0.465-4.680) mIU/L Urine Color Light Yellow Urine Appearance Clear (Clear) Urine pH 5.5 (5.0-8.0) Ur Specific [place] 1.017 (1.001-1.035) Urine Protein Negative (Negative) Urine Glucose (UA) Negative (Negative) Urine Ketones Negative (Negative) Urine Blood Negative (Negative) Urine Nitrite Negative (Negative) Urine Bilirubin Negative (Negative) Urine Urobilinogen <2.0 (<2.0) mg/dL Ur Leukocyte Esterase Negative (Negative) Salicylates mg/dL Urine Opiates Screen Not Detected (NotDetected) Ur Oxycodone Screen Not Detected (NotDetected) Urine Methadone Screen Not Detected (NotDetected) Acetaminophen ug/mL Ur Barbiturates Screen Not Detected (NotDetected) U Tricyclic Antidepress Not Detected (NotDetected) Ur Phencyclidine Scrn Not Detected (NotDetected) Ur Amphetamines Screen Detected H (NotDetected) U Methamphetamines Scrn Not Detected (NotDetected) U Benzodiazepines Scrn Detected H (NotDetected) Urine Cocaine Screen Not Detected (NotDetected) U Marijuana (THC) Screen Not Detected (NotDetected) Serum Alcohol mg/dL 08/08/23 Range/Units 07:10 WBC (3.8-10.6) k/uL RBC (4.30-5.90) m/uL Hgb (13.0-17.5) gm/dL Hct (39.0-53.0) % MCV (80.0-100.0) fL MCH (25.0-35.0) pg MCHC (31.0-37.0) g/dL RDW (11.5-15.5) % Plt Count (150-450) k/uL MPV Neutrophils % % Lymphocytes % % Monocytes % % Eosinophils % % Basophils % % Neutrophils # (1.3-7.7) k/uL Lymphocytes # (1.0-4.8) k/uL Monocytes # (0-1.0) k/uL Eosinophils # (0-0.7) k/uL Basophils # (0-0.2) k/uL Sodium 139 (137-145) mmol/L Potassium 4.2 (3.5-5.1) mmol/L Chloride 108 H (98-107) mmol/L Carbon Dioxide 21 L (22-30) mmol/L Anion Gap 10 mmol/L BUN 14 (9-20) mg/dL Creatinine 0.81 (0.66-1.25) mg/dL Est GFR (CKD-EPI)AfAm >90 (>60 ml/min/1.73 sqM) Est GFR (CKD-EPI)NonAf >90 (>60 ml/min/1.73 sqM) Glucose 97 (74-99) mg/dL Calcium 9.2 (8.4-10.2) mg/dL Total Bilirubin 0.5 (0.2-1.3) mg/dL AST 45 (17-59) U/L ALT 64 H (4-49) U/L Alkaline Phosphatase 101 (38-126) U/L Total Protein 7.2 (6.3-8.2) g/dL Albumin 4.4 (3.5-5.0) g/dL TSH 3.570 (0.465-4.680) mIU/L Urine Color Urine Appearance (Clear) Urine pH (5.0-8.0) Ur Specific [place] (1.001-1.035) Urine Protein (Negative) Urine Glucose (UA) (Negative) Urine Ketones (Negative) Urine Blood (Negative) Urine Nitrite (Negative) Urine Bilirubin (Negative) Urine Urobilinogen (<2.0) mg/dL Ur Leukocyte Esterase (Negative) Salicylates <1.0 mg/dL Urine Opiates Screen (NotDetected) Ur Oxycodone Screen (NotDetected) Urine Methadone Screen (NotDetected) Acetaminophen <10.0 ug/mL Ur Barbiturates Screen (NotDetected) U Tricyclic Antidepress (NotDetected) Ur Phencyclidine Scrn (NotDetected) Ur Amphetamines Screen (NotDetected) U Methamphetamines Scrn (NotDetected) U Benzodiazepines Scrn (NotDetected) Urine Cocaine Screen (NotDetected) U Marijuana (THC) Screen (NotDetected) Serum Alcohol 25 mg/dL Disposition <Jeferson Louise - Last Filed: 08/07/23 21:02> Is patient prescribed a controlled substance at d/c from ED?: No Time of Disposition: 13:48 <Durga Botello - Last Filed: 08/08/23 13:48> Clinical Impression: Acute psychosis, Homicidal ideations Disposition: ADMITTED IP TO THIS [facility] Condition: Stable Referrals: Jay Jay Clark MD [Primary Care Provider] - 1-2 days
[2023-08-07] MEDS: LORazepam 1 MG TAB PO STA (21:26)
[2023-08-08] MEDS: LORazepam 1 MG TAB PO STA ×2 (00:04→13:54)
[2023-08-08] MEDS: diphenhydrAMINE 50 MG CAP PO STA (01:53)
[2023-08-08 07:16] LABS: Basophils # (A) 0.1 k/uL (0-0.2); Basophils % (A) 1 %; Eosinophils # (A) 0.5 k/uL (0-0.7); Eosinophils % (A) 7 %; HCT 42.4 % (39.0-53.0); HGB 14.5 gm/dL (13.0-17.5); Lymphocytes % (A) 44 %; MCH 31.8 pg (25.0-35.0); MCHC 34.1 g/dL (31.0-37.0); MCV 93.1 fL (80.0-100.0); Mean Platelet Volume 7.3; Monocytes # (A) 0.6 k/uL (0-1.0); Monocytes % (A) 8 %; Neutrophils # (A) 2.5 k/uL (1.3-7.7); Neutrophils % (A) 37 %; Platelet Count 384 k/uL (150-450); RBC 4.55 m/uL (4.30-5.90); RDW 12.8 % (11.5-15.5); WBC 6.8 k/uL (3.8-10.6)
[2023-08-08 07:17] LABS: Appearance,Urine Clear (Clear); Bilirubin,Urine Negative (Negative); Blood,Urine Negative (Negative); Color,Urine Light Yellow; Glucose,Urine (UA) Negative (Negative); Ketones,Urine Negative (Negative); Leukocyte Esterase,Urine Negative (Negative); Nitrite,Urine Negative (Negative); PH, Urine 5.5 (5.0-8.0); Protein,Urine Negative (Negative); Specific Gravity,Urine 1.017 (1.001-1.035); Urobilinogen,Urine <2.0 mg/dL (<2.0)
[2023-08-08 07:28] LABS: ALT 64 U/L (4-49); AST 45 U/L (17-59); Acetaminophen <10.0 ug/mL; African American GFR (CKD) >90 (>60 ml/min/1.73 sqM); Albumin 4.4 g/dL (3.5-5.0); Alcohol 25 mg/dL; Alkaline Phosphatase 101 U/L (38-126); Anion Gap 10 mmol/L; Blood Urea Nitrogen 14 mg/dL (9-20); Calcium 9.2 mg/dL (8.4-10.2); Carbon Dioxide 21 mmol/L (22-30); Chloride 108 mmol/L (98-107); Glucose 97 mg/dL (74-99); Non-African American GFR(CKD) >90 (>60 ml/min/1.73 sqM); Potassium 4.2 mmol/L (3.5-5.1); Salicylate <1.0 mg/dL; Sodium 139 mmol/L (137-145); Total Bilirubin 0.5 mg/dL (0.2-1.3); Total Protein 7.2 g/dL (6.3-8.2)
[2023-08-08 08:12] LABS: Cocaine Screen,Urine Not Detected (NotDetected); Opiate Screen,Urine Not Detected (NotDetected); Phencyclidine Screen,Urine Not Detected (NotDetected); Urn Cannabinoid Scrn Not Detected (NotDetected)
[2023-08-08 08:13] LABS: Amphetamine Screen,Urine Detected (NotDetected); Barbiturate Screen,Urine Not Detected (NotDetected); Benzodiazepines Screen,Urine Detected (NotDetected); Methadone Screen, Urine Not Detected (NotDetected); Oxycodone Screen, Urine Not Detected (NotDetected); Tricyclic Antidepressant,Urine Not Detected (NotDetected)
[2023-08-08] MEDS ORDERED: HALOPERIDOL LACTATE 5 MG/ML 1 ML VIAL IM PRN (17:04)
[2023-08-08] MEDS ORDERED: MAGNESIUM HYDROXIDE 2,400 MG/30 ML CUP PO PRN (17:04)
[2023-08-08] MEDS ORDERED: LORazepam 1 MG TAB PO PRN ×2 (17:04)
[2023-08-09] MEDS: TAMSULOSIN 0.4 MG CAP.ER.24H PO SCH (08:15)
[2023-08-09] MEDS: CHOLECALCIFEROL 125 MCG (5000 IU) TABLET PO SCH (08:15)
[2023-08-09] MEDS: LEVOTHYROXINE 25 MCG TAB PO SCH (08:15)
[2023-08-09] MEDS: PANTOPRAZOLE 40 MG TABLET PO SCH (08:15)
[2023-08-09] MEDS: ATORVASTATIN 40 MG TAB PO SCH (08:15)
[2023-08-09] MEDS: LORazepam 1 MG TAB PO PRN (08:16)
[2023-08-09] MEDS: NICOTINE 14MG/24HR PATCH TRANSDERM SCH (08:18)
[2023-08-09 08:56] LABS: Chol/HDL Ratio 2.21 Ratio; LDL Cholesterol,Calculated 46.2 mg/dL (0.0-131.0)
--- NOTE | 2023-08-09 13:47 | P.HP ---
Psychiatric H&P - . H&P Date: 08/09/23 History & Physical: Allergies Allergy/AdvReac Type Severity Reaction Status Date / Time No Known Allergies Allergy Verified 08/08/23 18:27 Vital Signs Temp 98 F 08/08/23 18:24 Pulse 119 H 08/08/23 21:39 Resp 18 08/08/23 21:39 BP 113/78 08/08/23 21:39 Pulse Ox 95 08/08/23 13:51 FiO2 Intake & Output 08/08/23 08/09/23 08/09/23 18:59 06:59 18:59 Weight 83.915 kg Laboratory Last Values WBC 6.8 k/uL (3.8-10.6) 08/08/23 07:10 RBC 4.55 m/uL (4.30-5.90) 08/08/23 07:10 Hgb 14.5 gm/dL (13.0-17.5) 08/08/23 07:10 Hct 42.4 % (39.0-53.0) 08/08/23 07:10 MCV 93.1 fL (80.0-100.0) 08/08/23 07:10 MCH 31.8 pg (25.0-35.0) 08/08/23 07:10 MCHC 34.1 g/dL (31.0-37.0) 08/08/23 07:10 RDW 12.8 % (11.5-15.5) 08/08/23 07:10 Plt Count 384 k/uL (150-450) 08/08/23 07:10 MPV 7.3 08/08/23 07:10 Neutrophils % 37 % 08/08/23 07:10 Lymphocytes % 44 % 08/08/23 07:10 Monocytes % 8 % 08/08/23 07:10 Eosinophils % 7 % 08/08/23 07:10 Basophils % 1 % 08/08/23 07:10 Neutrophils # 2.5 k/uL (1.3-7.7) 08/08/23 07:10 Lymphocytes # 3.0 k/uL (1.0-4.8) 08/08/23 07:10 Monocytes # 0.6 k/uL (0-1.0) 08/08/23 07:10 Eosinophils # 0.5 k/uL (0-0.7) 08/08/23 07:10 Basophils # 0.1 k/uL (0-0.2) 08/08/23 07:10 Sodium 139 mmol/L (137-145) 08/08/23 07:10 Potassium 4.2 mmol/L (3.5-5.1) 08/08/23 07:10 Chloride 108 mmol/L (98-107) H 08/08/23 07:10 Carbon Dioxide 21 mmol/L (22-30) L 08/08/23 07:10 Anion Gap 10 mmol/L 08/08/23 07:10 BUN 14 mg/dL (9-20) 08/08/23 07:10 Creatinine 0.81 mg/dL (0.66-1.25) 08/08/23 07:10 Est GFR (CKD-EPI)AfAm >90 (>60 ml/min/1.73 sqM) 08/08/23 07:10 Est GFR (CKD-EPI)NonAf >90 (>60 ml/min/1.73 sqM) 08/08/23 07:10 Glucose 97 mg/dL (74-99) 08/08/23 07:[address] Glu mg/dL 126 mg/dL 08/08/23 07:10 Hemoglobin A1c 6.0 % (<=6.0) 08/08/23 07:10 Calcium 9.2 mg/dL (8.4-10.2) 08/08/23 07:10 Total Bilirubin 0.5 mg/dL (0.2-1.3) 08/08/23 07:10 AST 45 U/L (17-59) 08/08/23 07:10 ALT 64 U/L (4-49) H 08/08/23 07:10 Alkaline Phosphatase 101 U/L (38-126) 08/08/23 07:10 Total Protein 7.2 g/dL (6.3-8.2) 08/08/23 07:10 Albumin 4.4 g/dL (3.5-5.0) 08/08/23 07:10 Triglycerides 172.00 mg/dL (0.00-149.00) H 08/08/23 07:10 Cholesterol 147.00 mg/dL (0.00-200.00) 08/08/23 07:10 LDL Cholesterol, Calc 46.2 mg/dL (0.0-131.0) 08/08/23 07:10 VLDL Cholesterol, Calc 34.40 mg/dL (5.00-40.00) 08/08/23 07:10 HDL Cholesterol 66.40 mg/dL (40.00-60.00) H 08/08/23 07:10 Cholesterol/HDL Ratio 2.21 Ratio 08/08/23 07:10 TSH 3.570 mIU/L (0.465-4.680) 08/08/23 07:10 Urine Color Light Yellow 08/08/23 07:04 Urine Appearance Clear (Clear) 08/08/23 07:04 Urine pH 5.5 (5.0-8.0) 08/08/23 07:04 Ur Specific [place] 1.017 (1.001-1.035) 08/08/23 07:04 Urine Protein Negative (Negative) 08/08/23 07:04 Urine Glucose (UA) Negative (Negative) 08/08/23 07:04 Urine Ketones Negative (Negative) 08/08/23 07:04 Urine Blood Negative (Negative) 08/08/23 07:04 Urine Nitrite Negative (Negative) 08/08/23 07:04 Urine Bilirubin Negative (Negative) 08/08/23 07:04 Urine Urobilinogen <2.0 mg/dL (<2.0) 08/08/23 07:04 Ur Leukocyte Esterase Negative (Negative) 08/08/23 07:04 Salicylates <1.0 mg/dL 08/08/23 07:10 Urine Opiates Screen Not Detected (NotDetected) 08/08/23 07:04 Ur Oxycodone Screen Not Detected (NotDetected) 08/08/23 07:04 Urine Methadone Screen Not Detected (NotDetected) 08/08/23 07:04 Acetaminophen <10.0 ug/mL 08/08/23 07:10 Ur Barbiturates Screen Not Detected (NotDetected) 08/08/23 07:04 U Tricyclic Antidepress Not Detected (NotDetected) 08/08/23 07:04 Ur Phencyclidine Scrn Not Detected (NotDetected) 08/08/23 07:04 Ur Amphetamines Screen Detected (NotDetected) H 08/08/23 07:04 U Methamphetamines Scrn Not Detected (NotDetected) 08/08/23 07:04 U Benzodiazepines Scrn Detected (NotDetected) H 08/08/23 07:04 Urine Cocaine Screen Not Detected (NotDetected) 08/08/23 07:04 U Marijuana (THC) Screen Not Detected (NotDetected) 08/08/23 07:04 Serum Alcohol 25 mg/dL 08/08/23 07:10 SARS-CoV-2 (PCR) Not Detected (Not Detectd) 08/08/23 14:12 08/09/23 11:11 IDENTIFYING DATA: Patient is a single, unemployed, 57-year-old [place] male who is presenting with psychosis. HPI: Pt brought into hospital by PD on a seed cone picker order. Pt was petitioned by mother. According to petition, mother states that pt is "trying to kill us". Per petition reports substance use including "huffing, gummies, and drinking". Reports of patient "talking to people who are not there". Mother also noted that the patient believes that drones are watching him. Multiple admissions for psych osis. Pt was found lying in bed. Pt was irritable on approach. Pt was cooperative to speak in office. Pt stated that he was mad at his mother. Pt stated "I'll choke that bitch out". Pt easily irritable while answering questions. Pt denies Suicidal ideations. When patient was asked about homicidal ideations, pt reported "i wish my mom would leave the world". Patient gave very little history as to why he came into the hospital, he appeared to be fairly vague and evasive. Pt denies Visual hallucinations however does state that he hears "a buzzing sound in my head" continuously. Pt reports not having enough sleep, apatite fair. Pt reports cigarette use, alcohol daily, not giving an amount. Pt not reporting withdrawl symptoms from alcohol or history of complex withdrawals, UDS positive for benzodiazopines and methamphetamine. Previous psychiatric history: Last psychiatric hospitalization at [facility] (here) in 05/2022 for similar concerns. Pt was following up with Dr. Perez at [facility]. Pt was on Ablilfy and Trazodone previously, but reports not taking medications. Pt denies any previous suicide attempts. Substance use history: As per HPI Previous medical history: As per ER note. Social history: Prior history: He was raised well by his parents. As noted above he was kicked out of school in 11th grade for abusing several drugs. He did not get his GED. He is single and was never . He does not have any children. He was not in the service. He said he does not have any temple but believes in God. He was not in the service. He has health insurance. Pt states he lives alone. Family history: He denies any physical or psychiatric issues in the family. MENTAL STATUS EXAM: General Appearance: Patient appears to be older than stated age is alert. Patient appears to have poor hygiene and grooming. Behavior: Patient was fairly agitated, irritable. Speech: Patient's speech is fluent and nonpressured. Demanding at times and irritable tone. Mood/Affect: Patient reports their mood is irritable, anxious, affect is congruent and agitated Suicidality/Homicidality: Patient denies having any homicidal ideation intent or plan. Denies any suicidal ideations intent or plan Perceptions: Patient denies any visual hallucinations. Pt reports hearing buzzing in head. Though content/process: Persecutory delusions about drones, concrete, demanding. Memory and concentration: AOX3, low concentration Judgment and insight: poor and poor impulse control STRENGTHS/WEAKNESSES: Comorbid substance use is a weakness, impulsive and poor decision making. Strength is social support of his family. INTELLECT: average IMPRESSIONS: Mood disorder unspecified Methamphentamine use disorder Alcohol use disorder Nicotine dependance PLAN: -Patient is admitted under involuntary status to [facility] for stabilization of psychiatric symptoms and safety. Second certificate signed and placed in patient's chart. -Medications: Will start Invega 3mg bid for mood stabalization/ psychosis Trazodone 50mg qhs for mood/insomnia Librium taper for alcohol withdrawl CIWA protocl with PRN Ativan for alcohol withdrawl -Patient was counselled on substance abuse. -Patient was informed of the risks, benefits and side effects of the medication -Internal Medicine consult to perform medical evaluation and physical. NRT- Nicotine patch -SW on board for discharge planning. Encourage patient to participate in groups to work on coping skills. Patient endorses having access to firearms - will need to be addressed prior to discharge.
[2023-08-09] MEDS: PALIPERIDONE 3 MG TAB.ER.24 PO SCH (20:04)
[2023-08-09] MEDS: traZODone HCL 50 MG TAB PO SCH (20:04)
--- NOTE | 2023-08-09 23:43 | CONS ---
CONSULTATION CHIEF COMPLAINT: Acute psychosis. HISTORY OF PRESENT ILLNESS: This is another psych admission for this 57-year-old man. He presented with acute psychosis. He has been on the floor before and has been a [facility] patient in the past. He is known to abuse benzodiazepines and amphetamines, which were in his urine. REVIEW OF SYSTEMS: He is currently having headache, but he denies any visual trouble, chest pain, shortness of breath, abdominal pain, nausea, vomiting, diarrhea, etc. Past medical history, family history, and personal and social histories were otherwise unchanged and found in his admitting summary. PHYSICAL EXAMINATION: VITAL SIGNS: Normal. HEAD, EARS, EYES, NOSE, MOUTH AND THROAT: Normal. CHEST: Clear. CARDIAC: Normal. ABDOMEN: Soft, nontender. EXTREMITIES: Normal. NEUROLOGICAL: He is intact. IMPRESSION: 1. Acute psychosis. 2. History of schizophrenia. 3. Substance abuse. RECOMMENDATIONS: None. Thank you respectfully, NIDIA / SHAHLA: [id number] /
[2023-08-10] MEDS: haloperidoL 5 MG TAB PO PRN (13:24)
--- NOTE | 2023-08-10 14:03 | P.PN ---
Progress Note - Text Progress Note Date: 08/10/23 Interval history: Patient was seen today laying in bed and was agreeable to speak to property underwriter at the bedside. Patient continues to be fairly irritable mildly less hostile today with property underwriter. He continues to call his mother several negative names and swearing. He did claim that he would "kill that bitch" when asked about homicidal ideations. He did not say how. He is denying any suicidal thoughts today. He continues to be fairly concrete, focused on discharge, poor impulse control. Claims that he slept fairly last night. Has been mainly keeping himself not interested in going to groups. Has been up for meals. Has been taking his medications not reporting any side effects. At this time he is denying any auditory or visual hallucinations. H econtinues to report hearing a buzzing noise and beleives that it may be a "drone". MENTAL STATUS EXAM: General Appearance: Patient appears to be older than stated age is alert. Patient appears to have poor hygiene and grooming. Behavior: Patient was fairly agitated, irritable. laying in bed. Speech: Patient's speech is fluent and nonpressured. Demanding at times and irritable tone. Mood/Affect: Patient reports their mood is irritable, affect is congruent and agitated Suicidality/Homicidality: Patient denies having any homicidal ideation intent or plan. Denies any suicidal ideations intent or plan Perceptions: Patient denies any visual hallucinations. Pt reports hearing buzzing in head. Though content/process: Persecutory delusions about drones, concrete, demanding. Memory and concentration: AOX3, low concentration Judgment and insight: poor and poor impulse control IMPRESSIONS: Psychosis unspecified Methamphentamine use disorder Alcohol use disorder Nicotine dependance PLAN: -Patient is admitted under involuntary status to [facility] for stabilization of psychiatric symptoms and safety. Second certificate signed and placed in patient's chart. -Medications: change Invega 6 mg daily for mood stabalization/psychosis Trazodone 50mg qhs for mood/insomnia continue with Librium taper for alcohol withdrawl CIWA protocol with PRN Ativan for alcohol withdrawl -Patient was counselled on substance abuse. -Patient was informed of the risks, benefits and side effects of the medication -Internal Medicine consult to perform medical evaluation and physical. NRT- Nicotine patch -SW on board for discharge planning. Encourage patient to participate in groups to work on coping skills. Patient endorses having access to firearms - will need to be addressed prior to discharge. also will need to complete a duty to warn to mother.
[2023-08-10] MEDS: PALIPERIDONE 3 MG TAB.ER.24 PO STA (15:47)
[2023-08-10] MEDS: traZODone HCL 50 MG TAB PO SCH (19:30)
[2023-08-10] MEDS ORDERED: MIRTAZAPINE 15 MG TAB PO SCH (21:00)
[2023-08-10] MEDS ORDERED: PALIPERIDONE 3 MG TAB.ER.24 PO SCH (21:00)
[2023-08-10] MEDS ORDERED: risperiDONE 1 MG TAB PO SCH (21:00)
[2023-08-11] MEDS: PALIPERIDONE 6 MG TAB.ER.24 PO SCH ×2 (08:36→19:40)
[2023-08-11] MEDS ORDERED: PALIPERIDONE 6 MG TAB.ER.24 PO SCH (09:00)
--- NOTE | 2023-08-11 10:20 | P.PN ---
Progress Note - Text Progress Note Date: 08/11/23 nterval history: Patient was seen today laying in bed and was agreeable to speak to marine underwriter at the bedside. Patient continues to be fairly irritable. When asked about homicidal ideation, pt answered "no", but when asked about his mother Pt stated "God is gonna punish her". He is denying any suicidal thoughts today. He continues to be fairly concrete, focused on discharge, poor impulse control. States he didn't "get a whole lot of sleep" last night. Has been mainly keeping himself not interested in going to groups. Continues to endorse poor energy during the day and tiredness. Has been up for meals. Has been taking his medications not reporting any side effects. At this time he is denying any visual hallucinations. He continues to report hearing a buzzing noise and believes that it may be a "drone". MENTAL STATUS EXAM: General Appearance: Patient appears to be older than stated age is alert. Patient appears to have poor hygiene and grooming. Behavior: Patient was fairly agitated, irritable. laying in bed. Continues to be hostile Speech: Patient's speech is fluent and nonpressured. Demanding at times and irritable tone. Mood/Affect: Patient reports their mood is irritable, affect is congruent and agitated, improving mildly Suicidality/Homicidality: Patient denies having any homicidal ideation intent or plan. Denies any suicidal ideations intent or plan Perceptions: Patient denies any visual hallucinations. Pt reports hearing buzzing in head. Though content/process: Persecutory delusions about drones, concrete, demanding. Memory and concentration: AOX3, low concentration Judgment and insight: poor and poor impulse control IMPRESSIONS: Psychosis unspecified Methamphentamine use disorder Alcohol use disorder Nicotine dependance PLAN: -Patient is admitted under involuntary status to MHU for stabilization of psychiatric symptoms and safety. Second certificate signed and placed in patient's chart. -Medications: change Invega 6 mg qhs for mood stabalization/psychosis -Change to Trazodone 50mg qhs PRN for mood/insomnia -Will start Depakote 500mg qhs for mood stabilization -continue with Librium taper for alcohol withdrawl -CIWA protocol with PRN Ativan for alcohol withdrawl -NRT- Nicotine patch -SW on board for discharge planning. Encourage patient to participate in groups to work on coping skills. Patient endorses having access to firearms - will need to be addressed prior to discharge. also will need to complete a duty to warn to mother.
[2023-08-11] MEDS: DIVALPROEX ER 500 MG TAB.ER.24H PO SCH (19:40)
[2023-08-11] MEDS: NICOTINE 14MG/24HR PATCH TRANSDERM SCH (21:26)
--- NOTE | 2023-08-12 10:41 | P.PN ---
Progress Note - Text Progress Note Date: 08/12/23 Interval history: Patient was seen today laying in bed and was agreeable to speak to ad copy writer, singh edward appeared to be less irritable today with ad copy writer. He states that he just wants to avoid his mother at this time. He was fairly focused on discharge today. He asked several times about when his cupola charger insulation can come talk on. He also requested to speak to Tailer Off Jesús directly about his situation. He claims that the medications have been helping. 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 Pulse control improving. Claims that he slept a bit better last night. Has been mainly keeping himself not interested in going to groups. Has been taking his medications not reporting any side effects. At this time he is denying any visual hallucinations. MENTAL STATUS EXAM: General Appearance: Patient appears to be older than stated age is alert. Patient appears to have improving mildly hygiene and grooming. Behavior: Patient was laying in bed. Less hostile today, irritability improving Speech: Patient's speech is fluent and nonpressured. Demanding, improving mildly Mood/Affect: Patient reports their mood is irritable, improving, affect is congruent, improving mildly Suicidality/Homicidality: Patient denies having any homicidal ideation intent or plan. Denies any suicidal ideations intent or plan Perceptions: Patient denies any visual hallucinations. Pt reports hearing buzzi ng in head, proving Though content/process: Goal oriented, concrete, demanding, focused on discharge Memory and concentration: AOX3, low concentration Judgment and insight: poor, improving mildly IMPRESSIONS: Psychosis unspecified Methamphentamine use disorder Alcohol use disorder Nicotine dependance PLAN: -Patient is admitted under involuntary status to MHU for stabilization of psychiatric symptoms and safety. Second certificate signed and placed in patient's chart. -Medications: change Invega 6 mg qhs for mood stabalization/psychosis -Trazodone 50mg qhs PRN for mood/insomnia -Depakote 500mg qhs for mood stabilization -continue with Librium taper for alcohol withdrawl, will taper off by Monday -CIWA protocol with PRN Ativan for alcohol withdrawl -NRT- Nicotine patch -SW on board for discharge planning. Encourage patient to participate in groups to work on coping skills. Patient endorses having access to [employer] - will need to be addressed prior to discharge. also will need to complete a duty to warn to mother. awaiting deferral and court hearing date
[2023-08-12] MEDS: traZODone HCL 50 MG TAB PO PRN (22:23)
[2023-08-13] MEDS: MULTIVITAMINS, THERA 1 EACH TAB PO SCH (07:49)
--- NOTE | 2023-08-13 10:18 | P.PN ---
Progress Note - Text Progress Note Date: 08/13/23 Interval history: Patient was seen today laying in bed and was agreeable to speak to ticket writer, singh edward appeared to be more cooperative today, more soft-spoken. He claims that he thinks that his mother wants him to go to rehab and he states that he is going to call them on Monday. He also declined that he does not have much money and believes that he may be homeless. He states that his mood and anxiety have been improving. Claims that last night his blood pressure was lower despite drinking lots of fluids. Denies any withdrawal symptoms at this time. Claims that he had difficulty still maintaining sleep. Claims that he is feeling tired today. Has been mainly keeping himself not interested in going to groups. Has been taking his medications not reporting any side effects. At this time he is denying any visual hallucinations. MENTAL STATUS EXAM: General Appearance: Patient appears to be older than stated age is alert. Patient appears to have improving mildly hygiene and grooming. Behavior: Patient was laying in bed. Less hostile today, improving Speech: Patient's speech is fluent and nonpressured. Demanding, improving mildly Mood/Affect: Patient reports their mood is less irritable, improving, affect is congruent, improving mildly Suicidality/Homicidality: Patient denies having any homicidal ideation intent or plan. Denies any suicidal ideations intent or plan Perceptions: Patient denies any visual hallucinations. Denies any auditory hallucinations. Though content/process: Goal oriented, concrete, focused on discharge, improving Memory and concentration: AOX3, low concentration Judgment and insight: poor, improving mildly IMPRESSIONS: Psychosis unspecified Methamphentamine use disorder Alcohol use disorder Nicotine dependance PLAN: -Patient is admitted under involuntary status to MHU for stabilization of psychiatric symptoms and safety. Second certificate signed and placed in patient's chart. -Medications: continue Invega 6 mg qhs for mood stabalization/psychosis -d/c Trazodone and replace with melatonin for insomnia -Depakote 500mg qhs for mood stabilization -continue with Librium taper for alcohol withdrawl, will taper off by Monday -vistaril prn for anxiety. -d/c [facility] protocol -NRT- Nicotine patch -SW on board for discharge planning. Encourage patient to participate in groups to work on coping skills. Patient endorses having access to firearms - will need to be addressed prior to discharge. also will need to complete a duty to warn to mother. awaiting deferral and court hearing date. patient claims that he is homeless, states that he is willing to call rehab on Monday.
[2023-08-13] MEDS: IBUPROFEN 600 MG TAB PO PRN (11:16)
[2023-08-13] MEDS: MELATONIN 5 MG TABLET PO SCH (22:33)
[2023-08-14] MEDS: MAG HYDROX/AL HYDROX/SIMETH 30 ML CUP PO PRN (02:58)
--- NOTE | 2023-08-14 10:22 | P.PN ---
Progress Note - Text Progress Note Date: 08/14/23 Interval history: Patient was seen today laying in bed and was agreeable to speak to resume writer. Andre juliane appears to be more awake today. He was somewhat irritable today with resume writer continues to be focused on discharge. He continues to state that he believes that "there may be a drone they are out there spying on me". He continues to state that he does hear "buzzing in my ears". He has very poor insight about his drug use and how it may be related to the paranoia and delusions. He continues to be argumentative with resume writer about his medications. Continues to demand to speak to his document review attorney and believes that he is not getting much help on the unit. Has been taking his medications not reporting any side effects. At this time he is denying any visual hallucinations. Claims that he is not getting good rest at nighttime, has a fair appetite. Not been going to groups. MENTAL STATUS EXAM: General Appearance: Patient appears to be older than stated age is alert. Patient appears to have improving mildly hygiene and grooming. Behavior: Patient was laying in bed. hostile today, fairly irritable. Speech: Patient's speech is fluent and nonpressured. Demanding, paranoia Mood/Affect: Patient reports their mood is irritable, affect is congruent, irritable. Suicidality/Homicidality: Patient denies having any homicidal ideation intent or plan. Denies any suicidal ideations intent or plan Perceptions: Patient denies any visual hallucinations. Continues to state that he is hearing a drone. Though content/process: Goal oriented, concrete, focused on discharge, minimizing his need for hospitalization and treatment. Minimizing his drug use. Memory and concentration: AOX3, low concentration Judgment and insight: poor IMPRESSIONS: Psychosis unspecified Methamphentamine use disorder Alcohol use disorder Nicotine dependance PLAN: -Patient is admitted under involuntary status to MHU for stabilization of psychiatric symptoms and safety. Second certificate signed and placed in patient's chart. -Medications: Increase Invega 9 mg qhs for mood stabalization/psychosis -melatonin for insomnia -increase Depakote 750mg qhs for mood stabilization -vistaril prn for anxiety. -NRT- Nicotine patch -SW on board for discharge planning. Encourage patient to participate in groups to work on coping skills. Patient endorses having access to firearms - will need to be addressed prior to discharge. also will need to complete a duty to warn to mother. awaiting deferral and court hearing date. patient claims that he is homeless, states that he is willing to call rehab today.
[2023-08-14] MEDS: hydrOXYzine pamoate 25 MG CAP PO PRN (12:44)
[2023-08-14] MEDS ORDERED: DIVALPROEX ER 250 MG TAB.ER.24H PO SCH (21:00)
[2023-08-14] MEDS: DIVALPROEX ER 500 MG TAB.ER.24H PO SCH (21:06)
[2023-08-14] MEDS: PALIPERIDONE 3 MG TAB.ER.24 PO SCH (21:06)
--- NOTE | 2023-08-15 10:32 | P.PN ---
Progress Note - Text Progress Note Date: 08/15/23 Interval history: Patient was seen today laying in bed and was not very agreeable to speak to wr iter. remains hostile. covering his head with sheets. Patient laying in bed, covered completely with a blanket. Patient seems irritable today, stating that he did not want to talk, and that we are doing him no favors being here, and that this place is no good. Has been taking his medications not reporting any side effects. At this time he is denying any visual hallucinations. Claims that he is not getting good rest at nighttime, has a fair appetite. Not been going to groups, and isolating to his room. MENTAL STATUS EXAM: General Appearance: Patient appears to be older than stated age is alert. Patient appears to have improving mildly hygiene and grooming. Behavior: Patient was laying in bed. hostile today, fairly irritable. Speech: Patient's speech is fluent and nonpressured. Demanding Mood/Affect: Patient reports their mood is irritable, affect is congruent, irritable. Suicidality/Homicidality: Patient denies having any homicidal ideation intent or plan. Denies any suicidal ideations intent or plan Perceptions: Patient denies any visual hallucinations. Continues to state that he is hearing a drone. Though content/process: Goal oriented, concrete, focused on discharge Memory and concentration: AOX3, low concentration Judgment and insight: poor IMPRESSIONS: Psychosis unspecified Methamphentamine use disorder Alcohol use disorder Nicotine dependance PLAN: -Patient is admitted under involuntary status to MHU for stabilization of psychiatric symptoms and safety. Second certificate signed and placed in patient's chart. -Medications: Invega 9 mg qhs for mood stabalization/psychosis. will need to transition patient onto [place]. -melatonin for insomnia - increase Depakote 1000mg qhs for mood stabilization -vistaril prn for anxiety. -NRT- Nicotine patch -SW on board for discharge planning. Encourage patient to participate in groups to work on coping skills. Patient endorses having access to firearms - will need to be addressed prior to discharge. also will need to complete a duty to warn to mother. patient deffered with energy attorney. patient claims that he is homeless, states that he is willing to call rehab today.
--- NOTE | 2023-08-16 11:05 | P.PN ---
Progress Note - Text Progress Note Date: 08/16/23 Interval history: Patient was seen today in his room, and agreeable to speak to functional tester typewriters. remains somewhat hostile. Patient seems less irritable today, stating that he wanted to speak to the copying machine repairer, and that is why he did not defer with the trade mark attorney. He claimed he has a "couple of things he wants to say to the copying machine repairer". He continues to be focused on discharge, and seems angry that functional tester typewriters cannot discharge his safely before his court date. Hotel Engineer explained the process to the patient, patient angry, however, verbalized understanding. Patient states that he is not getting good rest because of being on the unit, and there is too much loud noises and people yelling, but as long as his mind can rest for at least four hours, he will be fine. Patient has been taking his medications not reporting any side effects, besides mild heart burn today, offered to order tums, patient stated he will take the maalox that is ordered. At this time he is denying any visual and auditory hallucinations. Not been going to groups, and isolating to his room. MENTAL STATUS EXAM: General Appearance: Patient appears to be older than stated age is alert. Patient appears to have improving mildly hygiene and grooming. Behavior: Patient was sitting in bed, fairly irritable, mildly improving Speech: Patient's speech is fluent and nonpressured. Demanding Mood/Affect: Patient reports their mood is irritable, affect is congruent, mildly irritable. Suicidality/Homicidality: Patient denies having any homicidal ideation intent or plan. Denies any suicidal ideations intent or plan Perceptions: Patient denies any visual hallucinations. Denies auditory hallucinations. Though content/process: Goal oriented, concrete, focused on discharge Memory and concentration: AOX3 Judgment and insight: chronically poor IMPRESSIONS: Psychosis unspecified Methamphentamine use disorder Alcohol use disorder Nicotine dependance PLAN: -Patient is admitted under involuntary status to MHU for stabilization of psychiatric symptoms and safety. Second certificate signed and placed in patient's chart. -Medications: Invega 9 mg qhs for mood stabalization/psychosis. will need to transition patient onto [place]. -melatonin for insomnia - Depakote 1000mg qhs for mood stabilization -vistaril prn for anxiety. -NRT- Nicotine patch -SW on board for discharge planning. Encourage patient to participate in groups to work on coping skills. Patient endorses having access to firearms - will need to be addressed prior to discharge. also will need to complete a duty to warn to mother. patient did not defer with trade mark attorney, hearing scheduled for 08/23. patient claims that he is homeless
--- NOTE | 2023-08-17 12:25 | P.PN ---
Progress Note - Text Progress Note Date: 08/17/23 Interval history: Patient was seen today in the lounge today, and not agreeable to speak to [facility]. remains hostile. irritable tone. Patient shooed check writer salesperson away with his hand, and said "leave me alone, I'm not speaking with you". has been taking his medications. At this time he is denying any visual and auditory hallucinations. Not been going to groups, and mostly isolating to his room. MENTAL STATUS EXAM: General Appearance: Patient appears to be older than stated age is alert. Patient appears to have improving mildly hygiene and grooming. Behavior: Patient was sitting on couch fairly irritable, Speech: Patient's speech is fluent and nonpressured. Demanding Mood/Affect: Patient reports their mood is irritable, affect is congruent, mildly irritable. Suicidality/Homicidality: Patient denies having any homicidal ideation intent or plan. Denies any suicidal ideations intent or plan Perceptions: Patient denies any visual hallucinations. Denies auditory hallucinations. Though content/process: Goal oriented, concrete, focused on discharge Memory and concentration: AOX3 Judgment and insight: chronically poor IMPRESSIONS: Psychosis unspecified Methamphentamine use disorder Alcohol use disorder Nicotine dependance PLAN: -Patient is admitted under involuntary status to MHU for stabilization of psychiatric symptoms and safety. Second certificate signed and placed in patient's chart. -Medications: Invega 9 mg qhs for mood stabalization/psychosis. will need to transition patient onto [place]. -melatonin for insomnia -increase Depakote 1500mg qhs for mood stabilization -vistaril prn for anxiety. -NRT- Nicotine patch -SW on board for discharge planning. Encourage patient to participate in groups to work on coping skills. Patient endorses having access to firearms - will need to be addressed prior to discharge. also will need to complete a duty to warn to mother. patient did not defer with document review attorney, hearing scheduled for 08/23. patient claims that he is homeless
[2023-08-17] MEDS: DIVALPROEX ER 500 MG TAB.ER.24H PO SCH (20:15)
--- NOTE | 2023-08-18 12:46 | P.PN ---
Progress Note - Text Progress Note Date: 08/18/23 Interval history: Patient was seen today in the lounge today, and agreeable to speak to underwriter at the bedside. Patient states that he is doing pretty good today. Patient admits that he "has a short fuse" and it gets the best of him sometime. Patient apologized to underwriter for previous behavior. he did appear to be mildly calmer today with underwriter and more appropriate. Patient states that he will do what his mother wants him to do, because he loves her very much. Patient mildly tearful when speaking of his mother. When underwriter asked patient what his mother wants him to do, he said "take the shot". Patient said he is agreeable to the shot, however, he wants to talk to the rn disease management on his court date on 08/23. Patient does not know if he will be going back to his parents home upon discharge. Patient has been taking his medications. At this time he is denying any visual and auditory hallucinations. MENTAL STATUS EXAM: General Appearance: Patient appears to be older than stated age is alert. Patient appears to have improving mildly hygiene and grooming. Behavior: Patient was sitting on bed fairly irritable, improving today Speech: Patient's speech is fluent and nonpressured. less irritable Mood/Affect: Patient reports their mood is improving mildly, affect is congruent, mildly irritable. mildly improving Suicidality/Homicidality: Patient denies having any homicidal ideation intent or plan. Denies any suicidal ideations intent or plan Perceptions: Patient denies any visual hallucinations. Denies auditory hallucinations. Though content/process: Goal oriented, concrete, focused on discharge Memory and concentration: AOX3 Judgment and insight: chronically poor, improving mildly IMPRESSIONS: Psychosis unspecified Methamphentamine use disorder Alcohol use disorder Nicotine dependance PLAN: -Patient is admitted under involuntary status to MHU for stabilization of psychiatric symptoms and safety. Second certificate signed and placed in patient's chart. -Medications: -Invega 9 mg qhs for mood stabalization/psychosis. will need to transition patient onto [place] likely perseris prior to d/c to ensure compliance. -melatonin for insomnia -Depakote 1500mg qhs for mood stabilization -vistaril prn for anxiety. -NRT- Nicotine patch -SW on board for discharge planning. Encourage patient to participate in groups to work on coping skills. Patient endorses having access to firearms - will need to be addressed prior to discharge. also will need to complete a duty to warn to mother. patient did not defer with power generating plant operator, hearing scheduled for 08/23. 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
[2023-08-18 14:06] VITALS: BMI 26.0
--- NOTE | 2023-08-19 17:02 | P.PN ---
Progress Note - Text Progress Note Date: 08/19/23 Interval history: Patient was seen today in the interview room. Patient states that he would like to speak with the dog show judge on Vogel's Day because "every man gets his day in court". He initially states that he does not want to be on Invega injection but later says that he would be open to it but still wants to speak with the dog show judge. 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 Patient states that he has been having more reflux in the mornings because he wakes up around 4 AM and is unable to continue sleeping. He requests to be on the protonic's earlier in the day. Patient states that he generally sleeps only 5-6 hours at night and says this is his baseline. He currently reports sleeping from around 11 PM until 4 AM. He denies suicidal and homicidal ideation today. Patient has been taking his medications and denies side effects. At this time he is denying any visual and auditory hallucinations. MENTAL STATUS EXAM: General Appearance: Patient appears to be older than stated age is alert. Patient appears to have improving mildly hygiene and grooming. Behavior: Superficially cooperative, overall pleasant Speech: Patient's speech is fluent and nonpressured. Mood/Affect: Patient reports their mood is "fine", affect is congruent. Suicidality/Homicidality: Patient denies having any homicidal ideation intent or plan. Denies any suicidal ideations intent or plan Perceptions: Patient denies any visual hallucinations. Denies auditory hallucinations. Though content/process: Goal oriented, concrete, focused on court Memory and concentration: AOX3 Judgment and insight: chronically poor, improving mildly IMPRESSIONS: Psychosis unspecified Methamphentamine use disorder Alcohol use disorder Nicotine dependance PLAN: -Patient is admitted under involuntary status to [facility] for stabilization of psychiatric symptoms and safety. Second certificate signed and placed in patient's chart. -Medications: -Invega 9 mg qhs for mood stabalization/psychosis. will need to transition patient onto DALLAS likely perseris prior to d/c to ensure compliance. -melatonin for insomnia -Depakote 1500mg qhs for mood stabilization -vistaril prn for anxiety. -NRT- Nicotine patch -SW on board for discharge planning. Encourage patient to participate in groups to work on coping skills. Patient endorses having access to firearms - will need to be addressed prior to discharge. also will need to complete a duty to warn to mother. patient did not defer with solar applications development engineer, hearing scheduled for 08/23. patient claims that he is homeless, will summer child caregiver DALLAS prior to d/c
[2023-08-20] MEDS: PANTOPRAZOLE 40 MG TABLET PO SCH (06:19)
--- NOTE | 2023-08-20 17:58 | P.PN ---
Progress Note - Text Progress Note Date: 08/20/23 Interval history: Patient was seen today in the interview room. He asks what was positive in his urine drug screen upon admission. Discussed his substance use and patient states that methamphetamine use is something of his past and he does not plan to continue using. He is superficially agreeable with trying to recover from alcohol addiction. He asks why he is currently on medication since he is no longer using alcohol. Discussed the importance of medication compliance and that the medications are not for alcohol addiction. He expresses anger towards his mother as a trigger for alcohol use. He says that he does not plan to call anymore for rehab because it is hard to use the phones here. He says he would like to ask the dna sequencing associate for a favor to set him up with rehab. However, he was encouraged to pursue this himself. Patient states that he was feeling tired when he woke up. He reports sleeping more today than in the past. He endorses good appetite. He received PO Vistaril as needed late last night. He denies suicidal and homicidal ideation today. Patient has been taking his medications and denies side effects except sedation. At this time he is denying any visual and auditory hallucinations. MENTAL STATUS EXAM: General Appearance: Patient appears to be older than stated age is alert. Patient appears to have improving mildly hygiene and grooming. Behavior: Superficially cooperative, overall pleasant Speech: Patient's speech is fluent and nonpressured. Mood/Affect: Patient reports their mood is "fine", affect is congruent. Suicidality/Homicidality: Patient denies having any homicidal ideation intent or plan. Denies any suicidal ideations intent or plan Perceptions: Patient denies any visual hallucinations. Denies auditory hallucinations. Though content/process: Goal oriented, concrete, focused on court Memory and concentration: AOX3 Judgment and insight: chronically poor, improving mildly IMPRESSIONS: Psychosis unspecified Methamphentamine use disorder Alcohol use disorder Nicotine dependance PLAN: -Patient is admitted under involuntary status to [facility] for stabilization of psychiatric symptoms and safety. Second certificate signed and placed in patient's chart. -Medications: -Invega 9 mg qhs for mood stabalization/psychosis. will need to transition patient onto DALLAS prior to d/c to ensure compliance. -melatonin for insomnia -Depakote 1500mg qhs for mood stabilization -vistaril prn for anxiety. -NRT- Nicotine patch -SW on board for discharge planning. Encourage patient to participate in groups to work on coping skills. Patient endorses having access to firearms - will need to be addressed prior to discharge. also will need to complete a DUTY TO WARN to mother. patient did not defer with corporate associate attorney, hearing scheduled for 08/23. patient claims that he is homeless
[2023-08-20] MEDS: ACETAMINOPHEN TAB 325 MG TAB PO PRN (21:03)
--- NOTE | 2023-08-21 14:02 | P.PN ---
Progress Note - Text Progress Note Date: 08/21/23 Interval history: Patient was seen today wandering the hallways and taking part in group earlier today. He was agreeable to speak today in his room. He appears to be improved in terms of his irritability, less hostile with health technical writer today. Claims that he is sleeping fairly well overnight. He was complaining of having pain in his feet and was asking about other pain medications. He acknowledges that he does have court coming up on Monday. States that he did get in touch with access line for substance use screening earlier today and is waiting for an intake date. Claims that his mood and anxiety have been mildly improving. States that he is sleeping fairly at nighttime. Has a fair appetite. Patient has been taking his medications. At this time he is denying any visual and auditory hallucinations. Denying any suicidal homicidal ideations intent or plan MENTAL STATUS EXAM: General Appearance: Patient appears to be older than stated age is alert. Patient appears to have improving mildly hygiene and grooming. Behavior: Patient was sitting on bed less irritable, improving today Speech: Patient's speech is fluent and nonpressured. less irritable improving Mood/Affect: Patient reports their mood is improving mildly, affect is congruent, mildly improving Suicidality/Homicidality: Patient denies having any homicidal ideation intent or plan. Denies any suicidal ideations intent or plan Perceptions: Patient denies any visual hallucinations. Denies auditory hallucinations. Though content/process: Goal oriented, concrete, less focused on discharge Memory and concentration: AOX3 Judgment and insight: chronically poor, improving mildly IMPRESSIONS: Psychosis unspecified Methamphentamine use disorder Alcohol use disorder Nicotine dependance PLAN: -Patient is admitted under involuntary status to [facility] for stabilization of psychiatric symptoms and safety. Second certificate signed and placed in patient's chart. -Medications: -Invega 9 mg qhs for mood stabalization/psychosis. will need to transition patient onto D[place] likely perseris prior to d/c to ensure compliance. -melatonin for insomnia -Depakote 1500mg qhs for mood stabilization -vistaril prn for anxiety. -NRT- Nicotine patch -SW on board for discharge planning. Encourage patient to participate in groups to work on coping skills. Patient endorses having access to firearms - will need to be addressed prior to discharge. also will need to complete a duty to warn to mother. patient did not defer with business attorney, hearing scheduled for 08/23. patient claims that he is homeless, will staff research scientist D[place] prior to d/c. hopeful for dc . awaiting rehab intake date.
[2023-08-21] MEDS: LORazepam 2 MG/ML INJ IM PRN (23:15)
--- NOTE | 2023-08-22 14:00 | P.PN ---
Progress Note - Text Progress Note Date: 08/22/23 Interval history: Patient was seen today at bedside He was agreeable to speak today in his room. He is improved terms of his irritability appears to be more cooperative today with consumer loan underwriter. States he is good today, however, is irritated that the court date has been pushed back a week due to the tar and ammonia pump operator being sick. He will be meeting with his criminal defense attorney tomorrow to defer, and has agreed to take a D[place]. States that he did get in touch with access line for substance use screening earlier today and is waiting for an intake date. Claims that his mood and anxiety have been improving. States that he is sleeping fairly at nighttime. Has a fair appetite. Patient has been taking his medications. At this time he is denying any visual and auditory hallucinations. Denying any suicidal homicidal ideations intent or plan MENTAL STATUS EXAM: General Appearance: Patient appears to be older than stated age is alert. Patient appears to have improving mildly hygiene and grooming. Behavior: Patient was sitting on bed less irritable, improving today Speech: Patient's speech is fluent and nonpressured, improving Mood/Affect: Patient reports their mood is improving mildly, affect is congruent, mildly improving Suicidality/Homicidality: Patient denies having any homicidal ideation intent or plan. Denies any suicidal ideations intent or plan Perceptions: Patient denies any visual hallucinations. Denies auditory hallucinations. Though content/process: Goal oriented, concrete, less focused on discharge Memory and concentration: AOX3 Judgment and insight: chronically poor, improving mildly IMPRESSIONS: Psychosis unspecified Methamphentamine use disorder Alcohol use disorder Nicotine dependance PLAN: -Patient is admitted under involuntary status to [facility] for stabilization of psychiatric symptoms and safety. Second certificate signed and placed in patient's chart. -Medications: -Invega 9 mg qhs for mood stabalization/psychosis. Start Invega 234mg IM tomorrow, next dose of 156 mg IM given in 1 week, 08/29 -melatonin for insomnia -Depakote 1500mg qhs for mood stabilization -vistaril prn for anxiety. -NRT- Nicotine patch -SW on board for discharge planning. Encourage patient to participate in groups to work on coping skills. Patient endorses having access to firearms - will need to be addressed prior to discharge social welfare clerk completed a duty to warn to mother. patient did not defer with criminal defense attorney,however, is willing to now. patient claims that he is homeless, dc . awaiting rehab intake date.
[2023-08-23] MEDS: PALIPERIDONE IM 234 MG/1.5 ML SYG IM ONE (08:55)
--- NOTE | 2023-08-23 11:52 | P.PN ---
Progress Note - Text Progress Note Date: 08/23/23 Interval history: Patient was seen today at bedside He was agreeable to speak today in his room. States he is good today, awaiting his hemp fiber taker off to come so he can sign his deferral, and has agreed to take a [place], which will be given today. He appears to be less irritable today with script writer, more cooperative. Claims that his mood and anxiety have been improving. States that he is sleeping fairly at nighttime. Has a fair appetite. Patient has been taking his medications. At this time he is denying any visual and auditory hallucinations. Denying any suicidal homicidal ideations intent or plan MENTAL STATUS EXAM: General Appearance: Patient appears to be older than stated age is alert. Patient appears to have improving mildly hygiene and grooming. Behavior: Patient was sitting on bed less irritable, improving today Speech: Patient's speech is fluent and nonpressured, improving Mood/Affect: Patient reports their mood is improving mildly, affect is congruent, mildly improving Suicidality/Homicidality: Patient denies having any homicidal ideation intent or plan. Denies any suicidal ideations intent or plan Perceptions: Patient denies any visual hallucinations. Denies auditory hallucinations. Though content/process: Goal oriented, concrete, less focused on discharge Memory and concentration: AOX3 Judgment and insight: chronically poor, improving mildly IMPRESSIONS: Psychosis unspecified Methamphentamine use disorder Alcohol use disorder Nicotine dependance PLAN: -Patient is admitted under involuntary status to [facility] for stabilization of psychiatric symptoms and safety. Second certificate signed and placed in patient's chart. -Medications: -Invega 9 mg qhs for mood stabalization/psychosis. Invega 234mg IM given 08/23, next dose of 156 mg IM given on 08/29, maintenance dose of 156 mg IM will be due on 09/25 -melatonin for insomnia -Depakote 1500mg qhs for mood stabilization -vistaril prn for anxiety. -NRT- Nicotine patch -SW on board for discharge planning. Encourage patient to participate in groups to work on coping skills. Patient endorses having access to firearms - will need to be addressed prior to discharge social services manager completed a duty to warn to mother. patient did not defer with hemp fiber taker off,however, is willing to now, has his deferral again today with hemp fiber taker off. dc [facility] to [facility] vs skilled nursing.
[2023-08-24 06:50] VITALS: BP 130/76; PULSE 99; RESP 18; TEMP 98.1
--- NOTE | 2023-08-24 10:19 | P.DS ---
Providers Date of admission: 08/08/23 16:27 Expected date of discharge: 08/24/23 Attending physician: Jb Navarro MD Consults: 08/08/23 17:33 Consult Physician Routine Consulting Provider: Jay Jay Clark Consult Reason/Comments: H&P and medical Do you want consulting provider notified?: Yes Primary care physician: Jay Jay Clark - Discharge Diagnosis(es) (1) Methamphetamine use disorder, moderate Current Visit: Yes Status: Acute Priority: High (2) Alcohol use disorder Current Visit: Yes Status: Acute Priority: Medium (3) Nicotine dependence Current Visit: No Status: Chronic Priority: Low (4) Unspecified psychosis Current Visit: Yes Status: Acute Priority: High Hospital Course: Admission HPI: Admission note was completed by junior copywriter "Pt brought into hospital by PD on a pickle maker order. Pt was petitioned by mother. According to petition, mother states that pt is "trying to kill us". Per petition reports substance use including "huffing, gummies, and drinking". Reports of patient "talking to people who are not there". Mother also noted that the patient believes that drones are watching him. Multiple admissions for psychosis. Pt was found lying in bed. Pt was irritable on approach. Pt was cooperative to speak in office. Pt stated that he was mad at his mother. Pt stated "I'll choke that bitch out". Pt easily irritable while answering questions. Pt denies Suicidal ideations. When patient was asked about homicidal ideations, pt reported "i wish my mom would leave the world". Patient gave very little history as to why he came into the hospital, he appeared to be fairly vague and evasive. Pt denies Visual hallucinations however does state that he hears "a buzzing sound in my head" continuously. Pt reports not having enough sleep, apatite fair. Pt reports cigarette use, alcohol daily, not giving an amount. Pt not reporting withdrawl symptoms from alcohol or history of complex withdrawals, UDS positive for benzodiazopines and methamphetamine." Hospital course: Upon admission to the unit patient was admitted involuntarily on a petition and certificate and a second certificate was completed and faxed with the courts. Patient ended up signing a deferral with the document control supervisor and agreeing to treatment. Patient was initially irritable, agitated and psychotic however with time and treatment he eventually got along well with other patients on the unit and followed unit protocol. Patient was compliant with the medications and denied any side effects throughout hospital course. Patient was started on Invega p.o. up to 9 mg nightly for mood stabilization/psychosis, patient was transitioned onto Invega Sustenna given loading dose of 234 mg IM on 08/23, next dose of 156 mg IM will be due on 08/29, maintenance dose will be due on 09/2000 156 mg IM. Depakote was increased to dose of 1500 mg nightly for mood stabilization, Vistaril as needed for anxiety, melatonin 10 mg nightly for insomnia. Patient spoke of his stressors and engaged in therapy both group and individual. Patient was also seen by medical team for history and physical exam. Throughout the course of the hospitalization patient gradually improved with regards to mood, anxiety, psychosis, hallucinations/delusions, sleep and returned back to their baseline level of functioning. On the day of discharge patient denied any suicidal or homicidal ideations intent or plan denied any auditory or visual hallucinations. Patient endorsed wanting to live for his health and his sobriety. The patient denied any access to guns or weapons. Patient denied any paranoia and did not endorse any delusions. Patient does have a significant history of substance abuse and was counseled on abstaining from all substances including alcohol and marijuana. Patient was given the number for access line for substance rehab, patient is currently in the process of waiting for a bed at [facility] and they will follow-up and call him once discharged. Patient was also counseled on the medications and need for regular compliance and was encouraged to follow-up with their outpatient appointment for mental health and also for primary care. Prior to discharge a family meeting will be arranged by drug abuse social worker to answer any questions and ensure safety upon discharge. Patient will be staying with a friend in the area until he is able to get into [facility]. Mental status exam: General Appearance: Patient appears to be tall, stated age is alert, pleasant, and cooperative. Patient is in no acute distress and has improved hygiene and grooming Behavior: Patient is calmly seated without any agitated behavior. Speech: Patient's speech is fluent and nonpressured. Mood/Affect: Patient reports their mood is "better", affect is congruent and euthymic. Suicidality/Homicidality: Patient denies having any suicidal or homicidal ideation intent or plan. Perceptions: Patient denies any auditory or visual hallucinations. Though content/process: There is no evidence of any delusional thought content and thought process is linear and goal-directed. More future oriented Memory and concentration: AOX3, grossly intact for the purposes of this session. Can spell "WORLD" backwards correctly. Judgment and insight: Chronically poor, however has improved with guarded prognosis Impression: Psychosis unspecified Methamphentamine use disorder Alcohol use disorder Nicotine dependance Plan: -Continue with discharge today as patient has improved and stabilized psychiatrically and is not currently an imminent threat to himself and/or others. Patient will remain at chronically elevated risk for harm to self and/or others due to his impulsivity and polysubstance abuse. -Continue medications: Depakote 1500 milligrams nightly for mood stabilization, Vistaril 50 mg daily as needed for anxiety, will discontinue p.o. Invega as patient is given Invega Sustenna 234 mg IM on 08/23, second dose of Invega Sustenna will be due at [facility] on 08/29 of 156 mg IM, monthly maintenance dose of 156 mg IM will be due on 09/26. -Patient was counseled on the need for medication compliance and appropriate follow-up at mental health and also primary care for medical issues. Patient verbalized understanding and agreed. -Social work to arrange for and conduct family meeting to ensure safety upon discharge and answer any questions/concerns. Social work also to arrange for patients follow up appointments with [facility] for psychiatric care along with follow up with primary care provider. -Patient counseled on abstaining from recreational drugs and marijuana and alcohol. Was informed/educated on the adverse effects on their physical and mental health. Patient verbally agreed and understood. Patient is currently waiting for a bed at [facility]. -Patient was instructed to return to the hospital or seek immediate medical care if their psychiatric or medical symptoms do worsen or reoccur. Allergies Allergy/AdvReac Type Severity Reaction Status Date / Time No Known Allergies Allergy Verified 08/08/23 18:27 Laboratory Results WBC 6.8 k/uL (3.8-10.6) 08/08/23 07:10 RBC 4.55 m/uL (4.30-5.90) 08/08/23 07:10 Hgb 14.5 gm/dL (13.0-17.5) 08/08/23 07:10 Hct 42.4 % (39.0-53.0) 08/08/23 07:10 MCV 93.1 fL (80.0-100.0) 08/08/23 07:10 MCH 31.8 pg (25.0-35.0) 08/08/23 07:10 MCHC 34.1 g/dL (31.0-37.0) 08/08/23 07:10 RDW 12.8 % (11.5-15.5) 08/08/23 07:10 Plt Count 384 k/uL (150-450) 08/08/23 07:10 MPV 7.3 08/08/23 07:10 Neutrophils % 37 % 08/08/23 07:10 Lymphocytes % 44 % 08/08/23 07:10 Monocytes % 8 % 08/08/23 07:10 Eosinophils % 7 % 08/08/23 07:10 Basophils % 1 % 08/08/23 07:10 Neutrophils # 2.5 k/uL (1.3-7.7) 08/08/23 07:10 Lymphocytes # 3.0 k/uL (1.0-4.8) 08/08/23 07:10 Monocytes # 0.6 k/uL (0-1.0) 08/08/23 07:10 Eosinophils # 0.5 k/uL (0-0.7) 08/08/23 07:10 Basophils # 0.1 k/uL (0-0.2) 08/08/23 07:10 Sodium 139 mmol/L (137-145) 08/08/23 07:10 Potassium 4.2 mmol/L (3.5-5.1) 08/08/23 07:10 Chloride 108 mmol/L (98-107) H 08/08/23 07:10 Carbon Dioxide 21 mmol/L (22-30) L 08/08/23 07:10 Anion Gap 10 mmol/L 08/08/23 07:10 BUN 14 mg/dL (9-20) 08/08/23 07:10 Creatinine 0.81 mg/dL (0.66-1.25) 08/08/23 07:10 Est GFR (CKD-EPI)AfAm >90 (>60 ml/min/1.73 sqM) 08/08/23 07:10 Est GFR (CKD-EPI)NonAf >90 (>60 ml/min/1.73 sqM) 08/08/23 07:10 Glucose 97 mg/dL (74-99) 08/08/23 07:[address] Glu mg/dL 126 mg/dL 08/08/23 07:10 Hemoglobin A1c 6.0 % (<=6.0) 08/08/23 07:10 Calcium 9.2 mg/dL (8.4-10.2) 08/08/23 07:10 Total Bilirubin 0.5 mg/dL (0.2-1.3) 08/08/23 07:10 AST 45 U/L (17-59) 08/08/23 07:10 ALT 64 U/L (4-49) H 08/08/23 07:10 Alkaline Phosphatase 101 U/L (38-126) 08/08/23 07:10 Total Protein 7.2 g/dL (6.3-8.2) 08/08/23 07:10 Albumin 4.4 g/dL (3.5-5.0) 08/08/23 07:10 Triglycerides 172.00 mg/dL (0.00-149.00) H 08/08/23 07:10 Cholesterol 147.00 mg/dL (0.00-200.00) 08/08/23 07:10 LDL Cholesterol, Calc 46.2 mg/dL (0.0-131.0) 08/08/23 07:10 VLDL Cholesterol, Calc 34.40 mg/dL (5.00-40.00) 08/08/23 07:10 HDL Cholesterol 66.40 mg/dL (40.00-60.00) H 08/08/23 07:10 Cholesterol/HDL Ratio 2.21 Ratio 08/08/23 07:10 TSH 3.570 mIU/L (0.465-4.680) 08/08/23 07:10 Urine Color Light Yellow 08/08/23 07:04 Urine Appearance Clear (Clear) 08/08/23 07:04 Urine pH 5.5 (5.0-8.0) 08/08/23 07:04 Ur Specific [place] 1.017 (1.001-1.035) 08/08/23 07:04 Urine Protein Negative (Negative) 08/08/23 07:04 Urine Glucose (UA) Negative (Negative) 08/08/23 07:04 Urine Ketones Negative (Negative) 08/08/23 07:04 Urine Blood Negative (Negative) 08/08/23 07:04 Urine Nitrite Negative (Negative) 08/08/23 07:04 Urine Bilirubin Negative (Negative) 08/08/23 07:04 Urine Urobilinogen <2.0 mg/dL (<2.0) 08/08/23 07:04 Ur Leukocyte Esterase Negative (Negative) 08/08/23 07:04 Salicylates <1.0 mg/dL 08/08/23 07:10 Urine Opiates Screen Not Detected (NotDetected) 08/08/23 07:04 Ur Oxycodone Screen Not Detected (NotDetected) 08/08/23 07:04 Urine Methadone Screen Not Detected (NotDetected) 08/08/23 07:04 Acetaminophen <10.0 ug/mL 08/08/23 07:10 Ur Barbiturates Screen Not Detected (NotDetected) 08/08/23 07:04 U Tricyclic Antidepress Not Detected (NotDetected) 08/08/23 07:04 Ur Phencyclidine Scrn Not Detected (NotDetected) 08/08/23 07:04 Ur Amphetamines Screen Detected (NotDetected) H 08/08/23 07:04 U Methamphetamines Scrn Not Detected (NotDetected) 08/08/23 07:04 U Benzodiazepines Scrn Detected (NotDetected) H 08/08/23 07:04 Urine Cocaine Screen Not Detected (NotDetected) 08/08/23 07:04 U Marijuana (THC) Screen Not Detected (NotDetected) 08/08/23 07:04 Serum Alcohol 25 mg/dL 08/08/23 07:10 SARS-CoV-2 (PCR) Not Detected (Not Detectd) 08/08/23 14:12 Vital Signs Temp 98.1 F 08/24/23 06:00 Pulse 99 08/24/23 06:00 Resp 18 08/24/23 06:00 BP 130/76 08/24/23 06:00 Pulse Ox 98 08/24/23 06:00 FiO2 Patient Condition at Discharge: Stable Plan - Discharge Summary Discharge Rx Participant: No New Discharge Prescriptions: New Melatonin 10 mg PO HS 30 Days #60 tab Ibuprofen [Motrin] 600 mg PO Q6HR PRN tab PRN Reason: Moderate Pain (Scale 4 To 6) Divalproex ER [Depakote ER] 1,500 mg PO HS 30 Days #90 tab Paliperidone IM [Invega Sustenna] 156 mg IM ONCE #1 each Paliperidone IM [Invega Sustenna] 156 mg IM ONCE #1 ml hydrOXYzine pamoate [Vistaril] 50 mg PO DAILY PRN 30 Days #60 cap PRN Reason: Anxiety Continue Tamsulosin [Flomax] 0.4 mg PO DAILY Atorvastatin [Lipitor] 40 mg PO DAILY Levothyroxine Sodium [Synthroid] 25 mcg PO DAILY Cholecalciferol [Vitamin D3 (125 Mcg = 5000 Iu)] 125 mcg PO DAILY Pantoprazole [Protonix] 40 mg PO DAILY 30 Days #30 tab Discontinued tadalafiL 20 mg PO Q48H PRN PRN Reason: E.D. Discharge Medication List Atorvastatin [Lipitor] 40 mg PO DAILY 05/17/23 [History] Levothyroxine Sodium [Synthroid] 25 mcg PO DAILY 05/17/23 [History] Tamsulosin [Flomax] 0.4 mg PO DAILY 05/17/23 [History] Cholecalciferol [Vitamin D3 (125 Mcg = 5000 Iu)] 125 mcg PO DAILY 08/08/23 [History] Divalproex ER [Depakote ER] 1,500 mg PO HS 30 Days #90 tab 08/24/23 [Rx] Ibuprofen [Motrin] 600 mg PO Q6HR PRN tab 08/24/23 [Rx] Melatonin 10 mg PO HS 30 Days #60 tab 08/24/23 [Rx] Paliperidone IM [Invega Sustenna] 156 mg IM ONCE #1 each 08/24/23 [Rx] Paliperidone IM [Invega Sustenna] 156 mg IM ONCE #1 ml 08/24/23 [Rx] Pantoprazole [Protonix] 40 mg PO DAILY 30 Days #30 tab 08/24/23 [Rx] hydrOXYzine pamoate [Vistaril] 50 mg PO DAILY PRN 30 Days #60 cap 08/24/23 [Rx] Follow up Appointment(s)/Referral(s): [facility] [Outside] - 08/25/23 1:00 pm (08/25/2023 1:00PM - 2:00PM JOLENE SHEA 08/30/2023 10:30AM - 11:00AM REGINO LIRA ) Jay Jay Clark MD [Primary Care Provider] - 1-2 days Activity/Diet/Wound Care/Special Instructions: Avoid the use of street drugs and alcohol. Take all medications as prescribed. When you are in need of refills on your medications, please contact your medical provider and/or outpatient psychiatrist/provider to have this done. Please go to your scheduled outpatient appointment for aftercare treatment. If symptoms return or become worse, call the crisis line at and/or go to the nearest emergency room for evaluation. National Suicide Hotline 619. Discharge Disposition: HOME SELF-CARE
== END 2023-08-24 10:26 | disposition home or self-care (01) | DRG 775 ==
LOC: EC 19:58 → 3MHU 08-08 16:27
PROVIDERS: ADMIT Psychiatry & Neurology Psychiatry; ATTEND Psychiatry & Neurology Psychiatry
DX: F15.20 Other stimulant dependence, uncomplicated (principal); F10.20 Alcohol dependence, uncomplicated; R45.850 Homicidal ideations; F23 Brief psychotic disorder; E03.9 Hypothyroidism, unspecified; I10 Essential (primary) hypertension; Z11.52 Encounter for screening for COVID-19; Y90.1 Blood alcohol level of 20-39 mg/100 ml; F17.210 Nicotine dependence, cigarettes, uncomplicated; E78.5 Hyperlipidemia, unspecified; K21.9 Gastro-esophageal reflux disease without esophagitis; M19.90 Unspecified osteoarthritis, unspecified site; Z79.890 Hormone replacement therapy; Z79.899 Other long term (current) drug therapy; Z55.5 Less than a high school diploma; Z59.01 Sheltered homelessness; Z56.0 Unemployment, unspecified; Z59.6 Low income; Z71.41 Alcohol abuse counseling and surveillance of alcoholic; Z71.51 Drug abuse counseling and surveillance of drug abuser
CPT/HCPCS: 36415; 80053; 80061; 80143; 80179; 80306; 80320; 81003; 82075; 83036; 84443; 85025; 87635; 99285

== ENCOUNTER 2023-10-15 19:52 | Emergency (ER) | payer OTHER ==
[2023-10-15] MEDS: ONDANSETRON 4 MG/2 ML VIAL IVP STA (20:43)
[2023-10-15] MEDS: SODIUM CHLORIDE 0.9% 1,000 ML IV STA (20:44)
[2023-10-15 20:56] LABS: Basophils % (A) 0 %; Eosinophils % (A) 0 %; HCT 40.9 % (39.0-53.0); HGB 13.5 gm/dL (13.0-17.5); Lymphocytes # (A) 1.1 k/uL (1.0-4.8); Lymphocytes % (A) 17 %; MCHC 32.9 g/dL (31.0-37.0); MCV 94.3 fL (80.0-100.0); Mean Platelet Volume 7.2; Monocytes # (A) 0.3 k/uL (0-1.0); Monocytes % (A) 4 %; Neutrophils # (A) 5.1 k/uL (1.3-7.7); Neutrophils % (A) 77 %; Platelet Count 350 k/uL (150-450); RBC 4.34 m/uL (4.30-5.90); RDW 13.1 % (11.5-15.5); WBC 6.6 k/uL (3.8-10.6)
[2023-10-15 21:04] VITALS: TEMP 97.6
[2023-10-15 21:23] LABS: ALT 54 U/L (4-49); AST 39 U/L (17-59); African American GFR (CKD) >90 (>60 ml/min/1.73 sqM); Albumin 4.7 g/dL (3.5-5.0); Alkaline Phosphatase 98 U/L (38-126); Amylase 53 U/L (30-110); Anion Gap 18 mmol/L; Blood Urea Nitrogen 11 mg/dL (9-20); Calcium 9.1 mg/dL (8.4-10.2); Carbon Dioxide 14 mmol/L (22-30); Chloride 108 mmol/L (98-107); Glucose 119 mg/dL (74-99); Lipase 80 U/L (23-300); Magnesium 1.5 mg/dL (1.6-2.3); Non-African American GFR(CKD) >90 (>60 ml/min/1.73 sqM); Potassium 4.3 mmol/L (3.5-5.1); Sodium 140 mmol/L (137-145); Total Bilirubin 0.4 mg/dL (0.2-1.3); Total Protein 7.5 g/dL (6.3-8.2)
[2023-10-15] MEDS: MAGNESIUM SULFATE-D5W PMX 1 GM in DEXTROSE/WATER 1 100ML.BAG IVPB ONE (22:30)
[2023-10-15 23:24] LABS: Appearance,Urine Cloudy (Clear); Bilirubin,Urine Negative (Negative); Blood,Urine Negative (Negative); Color,Urine Light Yellow; Glucose,Urine (UA) Negative (Negative); Ketones,Urine 1+ (Negative); Leukocyte Esterase,Urine Negative (Negative); Mucus,Urine Rare /hpf; Nitrite,Urine Negative (Negative); PH, Urine 7.5 (5.0-8.0); Protein,Urine 1+ (Negative); RBC,Urine 2 /hpf (0-5); Specific Gravity,Urine 1.022 (1.001-1.035); Urobilinogen,Urine <2.0 mg/dL (<2.0); WBC,Urine 1 /hpf (0-5)
[2023-10-15] MEDS ORDERED: LORazepam 2 MG/ML INJ IV PRN ×3 (23:26)
[2023-10-15 23:46] LABS: Amphetamine Screen,Urine Detected (NotDetected); Barbiturate Screen,Urine Not Detected (NotDetected); Benzodiazepines Screen,Urine Not Detected (NotDetected); Cocaine Screen,Urine Not Detected (NotDetected); Methadone Screen, Urine Not Detected (NotDetected); Opiate Screen,Urine Not Detected (NotDetected); Oxycodone Screen, Urine Not Detected (NotDetected); Phencyclidine Screen,Urine Not Detected (NotDetected); Tricyclic Antidepressant,Urine Not Detected (NotDetected); Urn Cannabinoid Scrn Detected (NotDetected)
--- NOTE | 2023-10-15 23:53 | CT ---
EXAMINATION TYPE: CT brain wo con DATE OF EXAM: 10/15/2023 HISTORY: new psych medication started today. drinks a fifth of liquor a day. Altered mental status. CT DLP: 1142.2 mGycm. Automated Exposure Control for Dose Reduction was Utilized. TECHNIQUE: CT scan of the head is performed without contrast. COMPARISON: Prior CT February 22, 2016 FINDINGS: There is no acute intracranial hemorrhage or midline shift identified. Ventricles and sul ci are within normal limits in size for patient's age. Walters-white matter differentiation is maintain ed The globes are intact and the visualized sinuses are clear. Old fracture deformity of the nasal bridge is redemonstrated. IMPRESSION: No acute intracranial hemorrhage or midline shift. No significant change from prior CT.
--- NOTE | 2023-10-16 01:19 | ED ---
Alcohol HPI - General Source: patient Mode of arrival: EMS Limitations: altered mental status <Barbara Jain - Last Filed: 10/16/23 01:58> <Jaylen Burnette - Last Filed: 10/16/23 12:35> - General Chief Complaint: Alcohol Stated Complaint: ETOH Time Seen by Provider: 10/15/23 20:07 - History of Present Illness Initial Comments: 58-year-old male brought in by EMS for alcohol intoxication and confusion. Patient is a daily drinker, normally drinks a fifth of liquor per day. When asked how much he drank today he states "enough". He tells me that he started a new medication today and did not like the way it made him feel, told that this was a psychiatric medication but we are unsure of which medication. Patient sees [facility]. Patient denies any chest pain, difficulty breathing, abdominal pain. He admits to nausea and vomiting. (Barbara Jain) - Related Data Home Medications Medication Instructions Recorded Confirmed Atorvastatin [Lipitor] 40 mg PO DAILY 05/17/23 08/08/23 Levothyroxine Sodium [Synthroid] 25 mcg PO DAILY 05/17/23 08/08/23 Tamsulosin [Flomax] 0.4 mg PO DAILY 05/17/23 08/08/23 Cholecalciferol [Vitamin D3 (125 125 mcg PO DAILY 08/08/23 08/08/23 Mcg = 5000 Iu)] Previous Rx's Medication Instructions Recorded Divalproex ER [Depakote ER] 1,500 mg PO HS 30 Days #90 tab 08/24/23 Ibuprofen [Motrin] 600 mg PO Q6HR PRN tab 08/24/23 Melatonin 10 mg PO HS 30 Days #60 tab 08/24/23 Paliperidone IM [Invega Sustenna] 156 mg IM ONCE #1 each 08/24/23 Paliperidone IM [Invega Sustenna] 156 mg IM ONCE #1 ml 08/24/23 Pantoprazole [Protonix] 40 mg PO DAILY 30 Days #30 tab 08/24/23 hydrOXYzine pamoate [Vistaril] 50 mg PO DAILY PRN 30 Days #60 cap 08/24/23 Allergies Allergy/AdvReac Type Severity Reaction Status Date / Time No Known Allergies Allergy Verified 08/08/23 18:27 Review of Systems ROS Other: All systems not noted in ROS Statement are negative. <Barbara Jain - Last Filed: 10/16/23 01:58> ROS Other: All systems not noted in ROS Statement are negative. <Alexis Burnetteophdebbie Mckee - Last Filed: 10/16/23 12:35> ROS Statement: Those systems with pertinent positive or pertinent negative responses have been documented in the HPI. Past Medical History Past Medical History: GERD/Reflux, Hyperlipidemia, Hypertension, No Reported History, Osteoarthritis (OA), Thyroid Disorder History of Any Multi-Drug Resistant Organisms: None Reported Past Surgical History: No Surgical Hx Reported, Orthopedic Surgery Additional Past Surgical History / Comment(s): Degloving injury left hand, repaired. Past Anesthesia/Blood Transfusion Reactions: No Reported Reaction Additional Past Anesthesia/Blood Transfusion Reaction / Comment(s): "I really, really don't like needles, I'm going to need something for anxiety." Past Psychological History: Schizophrenia Smoking Status: Current every day smoker Past Alcohol Use History: Daily Past Drug Use History: None Reported - Past Family History Mother Family Medical History: No Reported History <Barbara Jain - Last Filed: 10/16/23 01:58> General Exam Limitations: altered mental status General appearance: alert, appears intoxicated Head exam: Present: atraumatic, normocephalic Eye exam: Present: normal appearance, PERRL, EOMI Pupils: Present: normal accommodation Neck exam: Present: normal inspection, full ROM Respiratory exam: Present: normal lung sounds bilaterally. Absent: respiratory distress, wheezes, rales, rhonchi, stridor Cardiovascular Exam: Present: regular rate, normal rhythm, normal heart sounds. Absent: systolic murmur, diastolic murmur, rubs, gallop, clicks Neurological exam: Present: alert (intoxicated) Skin exam: Present: normal color <Barbara Jain - Last Filed: 10/16/23 01:58> Course Vital Signs 10/15/23 10/15/23 10/15/23 20:30 21:45 23:00 Temperature 97.6 F Pulse Rate 105 H 67 103 H Respiratory 20 18 17 Rate Blood Pressure 100/81 133/80 126/86 O2 Sat by Pulse 96 97 95 Oximetry 10/16/23 10:27 Temperature Pulse Rate 96 Respiratory 16 Rate Blood Pressure 123/93 O2 Sat by Pulse 97 Oximetry Medical Decision Making - Lab Data Result diagrams: 10/15/23 20:38 10/15/23 20:38 <Barbara Jain - Last Filed: 10/16/23 01:58> - Lab Data Result diagrams: 10/15/23 20:38 10/15/23 20:38 <Jaylen Burnette Rafi - Last Filed: 10/16/23 12:35> - Medical Decision Making Was pt. sent in by a medical professional or institution (, PA, L[employer] P[employer]ER OR APPLIER, urgent care, hospital, or correction...) When possible be specific @ -No Did you speak to anyone other than the patient for history (EMS, parent, family, police, friend...)? What history was obtained from this source @ -No Did you review nursing and triage notes (agree or disagree)? Why? @ -I reviewed and agree with nursing and triage notes Were old charts reviewed (outside hosp., previous admission, EMS record, old EKG, old radiological studies, urgent care reports/EKG's, correction records)? Report findings @ -No old charts were reviewed Differential Diagnosis (chest pain, altered mental status, abdominal pain women, abdominal pain men, vaginal bleeding, weakness, fever, dyspnea, syncope, headache, dizziness, GI bleed, back pain, seizure, CVA, palpatations, mental health, musculoskeletal)? @ -MDM Differential Altered Mental Status: Hypoglycemia, DKA, hypercapnia, ETOH, overdose, CO poisoning, trauma, myxedema coma, HTN encephalopathy, infection, encephalitis, psychosis, intercranial hemorrhage, hepatic encephalopathy, meningitis, CVA this is not meant to be an all-inclusive list EKG interpreted by me (3pts min.). @ -As above X-rays interpreted by me (1pt min.). @ -None done CT interpreted by me (1pt min.). @ -CT shows no acute intracranial hemorrhage or midline shift. No significant change from prior CT U/S interpreted by me (1pt. min.). @ -None done What testing was considered but not performed or refused? (CT, X-rays, U/S, labs)? Why? @ -None What meds were considered but not given or refused? Why? @ -None Did you discuss the management of the patient with other professionals (professionals i.e. , PA, [employer] P[employer]ER [employer] APPLIER, lab, RT, psych nurse, social insurance administrator, commercial drone pilot, teacher, security flex utility officer, egg caser)? Give summary @ -No Was smoking cessation discussed for >3mins.? @ -No Was critical care preformed (if so, how long)? @ -No Were there social determinants of health that impacted care today? How? (Homelessness, low income, unemployed, alcoholism, drug addiction, transportation, low edu. Level, literacy, decrease access to med. care, fpc, rehab)? @ -Alcohol use disorder Was there de-escalation of care discussed even if they declined (Discuss DNR or withdrawal of care, Hospice)? DNR status @ -No What co-morbidities impacted this encounter? (DM, HTN, Smoking, COPD, CAD, Cancer, CVA, ARF, Chemo, Hep., AIDS, mental health diagnosis, sleep apnea, morbid obesity)? @ -None Was patient admitted / discharged? Hospital course, mention meds given and route, prescriptions, significant lab abnormalities, going to OR and other pertinent info. @ -58-year-old male presenting with chief complaint of alcohol intoxication and confusion. Patient is a daily drinker. I am told that at baseline the patient is ANO x 4, the patient is quite confused during my evaluation. Physical exam was conducted. Magnesium 1.5, patient is receiving magnesium replacement. No UTI. Urine toxicology positive for amphetamines and marijuana. CT of the brain shows no acute process. Patient started a new psychiatric medication today and states that he refuses to take it again because he does not like the way it made him feel. I believe the patient would benefit from evaluation by EPS, he has had admissions for psychosis in the past and they can address concerns regarding the patient's medication. He is medically cleared and awaiting evaluation in the morning (Barbara Jain) 58 male who is seen eval by psychiatry here in the ER patient is normal and stable for discharge home (Jaylen Burnette) - Lab Data Lab Results 10/15/23 10/15/23 10/15/23 Range/Units 20:38 20:38 22:39 WBC 6.6 (3.8-10.6) k/uL RBC 4.34 (4.30-5.90) m/uL Hgb 13.5 (13.0-17.5) gm/dL Hct 40.9 (39.0-53.0) % MCV 94.3 (80.0-100.0) fL MCH 31.0 (25.0-35.0) pg MCHC 32.9 (31.0-37.0) g/dL RDW 13.1 (11.5-15.5) % Plt Count 350 (150-450) k/uL MPV 7.2 Neutrophils % 77 % Lymphocytes % 17 % Monocytes % 4 % Eosinophils % 0 % Basophils % 0 % Neutrophils # 5.1 (1.3-7.7) k/uL Lymphocytes # 1.1 (1.0-4.8) k/uL Monocytes # 0.3 (0-1.0) k/uL Eosinophils # 0.0 (0-0.7) k/uL Basophils # 0.0 (0-0.2) k/uL Sodium 140 (137-145) mmol/L Potassium 4.3 (3.5-5.1) mmol/L Chloride 108 H (98-107) mmol/L Carbon Dioxide 14 L (22-30) mmol/L Anion Gap 18 mmol/L BUN 11 (9-20) mg/dL Creatinine 0.76 (0.66-1.25) mg/dL Est GFR (CKD-EPI)AfAm >90 (>60 ml/min/1.73 sqM) Est GFR (CKD-EPI)NonAf >90 (>60 ml/min/1.73 sqM) Glucose 119 H (74-99) mg/dL Calcium 9.1 (8.4-10.2) mg/dL Phosphorus 4.0 (2.5-4.5) mg/dL Magnesium 1.5 L (1.6-2.3) mg/dL Total Bilirubin 0.4 (0.2-1.3) mg/dL AST 39 (17-59) U/L ALT 54 H (4-49) U/L Alkaline Phosphatase 98 (38-126) U/L Total Protein 7.5 (6.3-8.2) g/dL Albumin 4.7 (3.5-5.0) g/dL Amylase 53 (30-110) U/L Lipase 80 (23-300) U/L Urine Color Light Yellow Urine Appearance Cloudy (Clear) Urine pH 7.5 (5.0-8.0) Ur Specific [place] 1.022 (1.001-1.035) Urine Protein 1+ H (Negative) Urine Glucose (UA) Negative (Negative) Urine Ketones 1+ H (Negative) Urine Blood Negative (Negative) Urine Nitrite Negative (Negative) Urine Bilirubin Negative (Negative) Urine Urobilinogen <2.0 (<2.0) mg/dL Ur Leukocyte Esterase Negative (Negative) Urine RBC 2 (0-5) /hpf Urine WBC 1 (0-5) /hpf Urine Mucus Rare H (None) /hpf Urine Opiates Screen Not Detected (NotDetected) Ur Oxycodone Screen Not Detected (NotDetected) Urine Methadone Screen Not Detected (NotDetected) Ur Barbiturates Screen Not Detected (NotDetected) U Tricyclic Antidepress Not Detected (NotDetected) Ur Phencyclidine Scrn Not Detected (NotDetected) Ur Amphetamines Screen Detected H (NotDetected) U Methamphetamines Scrn Not Detected (NotDetected) U Benzodiazepines Scrn Not Detected (NotDetected) Urine Cocaine Screen Not Detected (NotDetected) U Marijuana (THC) Screen Detected H (NotDetected) Disposition <Barbara Jain - Last Filed: 10/16/23 01:58> Is patient prescribed a controlled substance at d/c from ED?: No <Jaylen Burnette - Last Filed: 10/16/23 12:35> Clinical Impression: Acute anxiety, Depression, Methamphetamine use disorder, moderate, Alcohol use disorder Disposition: HOME SELF-CARE Condition: Fair Instructions (If sedation given, give patient instructions): Mood Disorders (ED), Alcohol Intoxication (ED), Abuse of Alcohol (ED) Referrals: None,Stated [Primary Care Provider] - 1-2 days Forms: AA [facility], Outpatient Counseling, Inp Substance Abuse Facilities
[2023-10-16] MEDS: THIAMINE 100 MG TAB PO SCH (08:43)
[2023-10-16 10:54] VITALS: BP 123/93; PULSE 96; RESP 16
== END 2023-10-16 10:29 | disposition home or self-care (01) ==
LOC: EC 19:52
DX: F41.9 Anxiety disorder, unspecified (principal); F32.A Depression, unspecified; F15.20 Other stimulant dependence, uncomplicated; R00.0 Tachycardia, unspecified; F10.129 Alcohol abuse with intoxication, unspecified; F17.200 Nicotine dependence, unspecified, uncomplicated
CPT/HCPCS: 36415; 93005; 80053; 82150; 83690; 83735; 84100; 85025; 81001; 80306; 70450; 99285; 96365; 96375; 96361; J2405; J3475